=== PATIENT | male | born 1955 | race Caucasian/White ===

== ENCOUNTER 2016-12-09 16:43 | Inpatient (IN) | payer BC ==
[~2016-12-09] VITALS: Ht 167.6 cm; Wt 84.5 kg
[~2016-12-09 16:43] MED LIST: IOHEXOL 350 MG/ML 10 ML VIAL (for RAD DIAG) IV ONE
[2016-12-09 19:30] VITALS: BP 140/82; PULSE 71; RESP 16; TEMP 98.2; O2SAT 96
[2016-12-09 20:00] VITALS: PULSE 64
[2016-12-09] MEDS ORDERED: ACETAMINOPHEN 500 MG CPLT PO PRN (20:15)
[2016-12-09] MEDS ORDERED: SODIUM CHLORIDE 0.9% FLUSH 10 ML FLUSH IV FLUSH PRN (20:15)
[2016-12-09 21:00] VITALS: BP 123/82; PULSE 60
[2016-12-09] MEDS: SODIUM CHLORIDE 0.9% FLUSH 10 ML FLUSH IV FLUSH SCH (21:10)
[2016-12-09] MEDS: HEPARIN SODIUM - SQ 10,000 UNITS/ML VIAL SQ SCH (21:10)
[2016-12-09] MEDS ORDERED: MORPHINE SULFATE 4 MG/ML INJ IV PUSH ONE (21:15)
[2016-12-09 22:00] VITALS: PULSE 66
[2016-12-09] MEDS ORDERED: LISI10TA3 PO (22:31)
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
[2016-12-09 23:00] VITALS: PULSE 76
[2016-12-10] VITALS (27 sets, daily range): BP systolic 102–134; BP diastolic 60–79; PULSE 58–86; RESP 16–18; TEMP 97.4–98.6; O2SAT 96–98
[2016-12-10] MEDS: NITROGLYCERIN 2% OINT 1 GM PACKET TOPICAL SCH ×5 (00:28→23:38)
[2016-12-10 03:08] LABS: AUTOMATED NEUTROPHIL # 3.7 TH/MM3 (1.8-7.7); BASOPHIL # 0.1 TH/MM3 (0-0.2); BASOPHIL % 0.7 % (0.0-2.0); EOSINOPHIL # 0.3 TH/MM3 (0-0.4); EOSINOPHIL % 4.3 % (0.0-4.0); HEMATOCRIT 38.8 % (39.0-51.0); HEMO FLAGS DIFF FINAL; LYMPHOCYTE # 2.9 TH/MM3 (1.0-4.8); MEAN CELL VOLUME 84.4 FL (80.0-100.0); MEAN CORPUSCULAR HEMOGLOBIN 28.2 PG (27.0-34.0); MEAN CORPUSCULAR HGB CONC 33.4 % (32.0-36.0); MONO % 9.7 % (0.0-8.0); NEUT % 48.3 % (16.0-70.0); PLATELET COUNT 181 TH/MM3 (150-450); RED BLOOD COUNT 4.59 MIL/MM3 (4.50-5.90); RED CELL DISTRIBUTION WIDTH 15.1 % (11.6-17.2); WHITE BLOOD COUNT 7.7 TH/MM3 (4.0-11.0)
[2016-12-10 04:02] LABS: BICARBONATE 25.9 MEQ/L (21.0-32.0)
[2016-12-10 04:05] LABS: HDL CHOLESTEROL 30.6 MG/DL (40.0-60.0)
[2016-12-10] MEDS: HEPARIN SODIUM - SQ 10,000 UNITS/ML VIAL SQ SCH ×3 (05:26→21:25)
[2016-12-10] MEDS: LISINOPRIL 10 MG TAB PO SCH (09:00)
[2016-12-10] MEDS: SODIUM CHLORIDE 0.9% FLUSH 10 ML FLUSH IV FLUSH SCH ×2 (09:01→23:38)
[2016-12-10] MEDS: MORPHINE SULFATE 4 MG/ML INJ IV PUSH PRN ×3 (11:28→23:38)
--- NOTE | 2016-12-10 13:13 | EKG ---
Date Performed: 12/10/2016 Time Performed: 02:14:50 PTAGE: 61 years EKG: Sinus rhythm Ant/septal and lateral ST-T changes may be due to myocardial ischemia Abnormal ECG PREVIOUS TRACING : 12/09/2016 21.13 Compared to prior tracing no significant change DOCTOR: Shady Lott Interpretating Date/Time 12/10/2016 13:10:49
--- NOTE | 2016-12-10 13:17 | EKG ---
Date Performed: 12/09/2016 Time Performed: 21:13:38 PTAGE: 61 years EKG: Sinus rhythm Ant/septal and lateral ST-T changes may be due to myocardial ischemia Abnormal ECG NO PREVIOUS TRACING DOCTOR: Shady Lott Interpretating Date/Time 12/10/2016 13:13:18
--- NOTE | 2016-12-10 14:12 | HHI.PR ---
Subjective Remarks Follow-up non-ST elevation NC 12/10/16-patient seen and examined, patient continued to have substernal chest pain without any diaphoresis. Denies any headaches. by the bedside Objective Vitals Vital Signs Date Time Temp Pulse Resp B/P Pulse Ox O2 Delivery O2 Flow Rate FiO2 12/10/16 13:00 81 12/10/16 12:00 82 12/10/16 11:26 98.3 86 17 125/77 97 12/10/16 11:00 63 12/10/16 10:14 69 12/10/16 09:00 71 12/10/16 08:00 79 12/10/16 07:30 97.4 77 18 110/74 96 12/10/16 07:00 75 12/10/16 06:00 77 12/10/16 05:00 76 12/10/16 04:00 58 12/10/16 03:00 98.2 68 16 116/67 97 12/10/16 03:00 68 12/10/16 02:00 73 12/10/16 01:00 78 12/10/16 00:00 64 12/10/16 00:00 98.1 82 16 104/62 98 12/09/16 23:00 76 12/09/16 22:00 66 12/09/16 21:00 123/82 12/09/16 21:00 60 12/09/16 20:00 64 12/09/16 19:30 98.2 71 16 140/82 96 I/O 12/09/16 12/09/16 12/09/16 12/10/16 12/10/16 12/10/16 07:00 15:00 23:00 07:00 15:00 23:00 Intake Total 480 ml Output Total 500 ml Balance -20 ml Intake Oral 480 ml Output Urine Total 500 ml # Bowel Movements 0 Result Diagram: 12/10/162 12/10/16251 Objective Remarks GENERAL: NAD SKIN: Warm and dry. HEAD: Normocephalic. EYES: No scleral icterus. No injection or drainage. NECK: Supple, trachea midline. No JVD or lymphadenopathy. CARDIOVASCULAR: Regular rate and rhythm without murmurs, gallops, or rubs. RESPIRATORY: Breath sounds equal bilaterally. No accessory muscle use. GASTROINTESTINAL: Abdomen soft, non-tender, nondistended. MUSCULOSKELETAL: No cyanosis, or edema. BACK: Nontender without obvious deformity. No CVA tenderness. A/P Problem List: (1) NSTEMI (non-ST elevated myocardial infarction) ICD Code: I21.4 Status: Acute (2) Hypertension ICD Code: I10 Status: Chronic Assessment and Plan 61-year-old man with NSTEMI - Appreciate input from cardiology pending left heart catheterization 12/11/16 -Continue with Nitroglycerin ointment 2% /calcium channel roxy/Statin/ASA/ CORRINE inhibitor /heparin - Morphine 2 mg IV q3h PRN pain level 4 - 10 - 2-D echo pending Hypertension, controlled - Continue home lisinopril and Norvasc Soft left carotid bruit - Carotid ultrasound pending Hyperlipidemia -Start Lipitor 20mg at bedtime DVT prophylaxis - Heparin 5000 units subcutaneous every 8 hours Change admission to inpatient Rodo Bell MD Dec 10, 2016 14:12
[2016-12-10] MEDS ORDERED: TEMAZEPAM 15 MG CAP PO PRN (14:15)
[2016-12-10] MEDS ORDERED: PILL SPLITTER OTHER PRN (14:15)
[2016-12-10] MEDS ORDERED: ONDANSETRON HCL 4 MG/2 ML VIAL IV PRN (14:15)
[2016-12-10] MEDS ORDERED: ALUMINUM/MAGNESIUM/SIMETH 30 ML CUP PO PRN (14:15)
[2016-12-10] MEDS: ASPIRIN 81 MG CHEW TAB CHEW SCH (14:53)
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
--- NOTE | 2016-12-10 17:27 | RADRPT ---
EXAM DATE/TIME: 12/10/2016 16:37 [place] COMPARISON: None. INDICATIONS : Left bruit. MEDICAL HISTORY : Hypertension. Myocardial infarction. SURGICAL HISTORY : Lump removed left shoulder. Right ankle surgery. Exploratory laparotomy. ENCOUNTER: Initial ACUITY: 2 days PAIN SCORE: 0/10 LOCATION: Bilateral neck PEAK SYSTOLIC VELOCITIES (cm/sec): ICA/CCA RATIO: Right: 1.5 Left: 1.5 ICA: Right: 272 Left: 276 CCA: Right: 184 Left: 181 ECA: Right: 172 Left: 108 VERTEBRAL: Right: 105 antegrade Left: 55 antegrade Elevated flow velocities and ICA/CCA ratios have been found to correlate with increased degrees of vessel stenosis, calculated as percentage of diameter relative to a normal segment of distal ICA/CCA FINDINGS: There is moderate plaque in the carotid arteries bilaterally. No hemodynamically significant stenosis . There are elevated velocities in the common carotid and internal carotid arteries bilaterally. CONCLUSION: Increased systolic velocities in the carotid arteries bilaterally but without sonographic evidence fo r hemodynamically significant stenosis. Mild to moderate visible plaque formation. Florencio Suresh MD on December 10, 2016 at 17:19 Board Certified Radiologist. This report was verified electronically.
[2016-12-10] MEDS: ATORVASTATIN 20 MG TAB PO SCH (21:26)
[2016-12-11] VITALS (29 sets, daily range): BP systolic 107–146; BP diastolic 56–76; PULSE 61–82; RESP 16–20; TEMP 97.5–98.9; O2SAT 95–98
[2016-12-11] MEDS: NITROGLYCERIN 2% OINT 1 GM PACKET TOPICAL SCH ×4 (05:22→22:33)
[2016-12-11] MEDS: HEPARIN SODIUM - SQ 10,000 UNITS/ML VIAL SQ SCH (05:22)
[2016-12-11 06:47] LABS: BASOPHIL % 0.3 % (0.0-2.0); EOSINOPHIL # 0.3 TH/MM3 (0-0.4); EOSINOPHIL % 4.1 % (0.0-4.0); HEMATOCRIT 38.3 % (39.0-51.0); HEMO FLAGS DIFF FINAL; LYMPH % 34.6 % (9.0-44.0); LYMPHOCYTE # 2.7 TH/MM3 (1.0-4.8); MEAN CELL VOLUME 83.9 FL (80.0-100.0); MEAN CORPUSCULAR HEMOGLOBIN 28.6 PG (27.0-34.0); MONO % 9.6 % (0.0-8.0); NEUT % 51.4 % (16.0-70.0); PLATELET COUNT 189 TH/MM3 (150-450); RED BLOOD COUNT 4.56 MIL/MM3 (4.50-5.90); RED CELL DISTRIBUTION WIDTH 14.8 % (11.6-17.2); WHITE BLOOD COUNT 7.7 TH/MM3 (4.0-11.0)
[2016-12-11 07:16] LABS: BICARBONATE 25.6 MEQ/L (21.0-32.0); POTASSIUM 4.1 MEQ/L (3.5-5.1)
[2016-12-11] MEDS: ASPIRIN 81 MG CHEW TAB CHEW SCH (07:51)
[2016-12-11] MEDS: SODIUM CHLORIDE 0.9% FLUSH 10 ML FLUSH IV FLUSH SCH ×2 (07:51→22:34)
[2016-12-11] MEDS: LISINOPRIL 10 MG TAB PO SCH (07:52)
[2016-12-11] MEDS: amLODIPine BESYLATE 5 MG TAB PO SCH (07:52)
[2016-12-11] MEDS: MORPHINE SULFATE 4 MG/ML INJ IV PUSH PRN ×3 (07:53→22:39)
[2016-12-11] MEDS ORDERED: HEPARIN-NS/PF INJ 500 ML ONE (12:09)
[2016-12-11] MEDS ORDERED: MIDAZOLAM HCL 2 MG/2 ML VIAL ONE (12:10)
[2016-12-11] MEDS ORDERED: VERAPAMIL HCL 5 MG/2 ML VIAL ONE (12:10)
[2016-12-11] MEDS ORDERED: HEPARIN SODIUM - IV 10,000 UNITS/10 ML VIAL ONE (12:11)
[2016-12-11] MEDS ORDERED: NITROGLYCERIN INJ 5 ML ONE (12:11)
[2016-12-11] MEDS ORDERED: IOHEXOL 350 MG/ML 100 ML BTL (for Cath Lab) OTHER ONE (13:00)
--- NOTE | 2016-12-11 13:13 | CATHPROC ---
[employer] HIS Report Study Information Study Number Admission Scheduled Start Study Start [id number] Dec 09 2016 7:15PM 12/10/2016 Dec 11 2016 12:05PM Study Type [place] Service Left/Possible PCI Cardiac Catheterization Admit Source Facility Department Emergency department [facility] - Crisis Clinician Physician and Clinical Staff Initial Sekou Beard Electroencephalogram Technologist Toni Sequeira,CRISTINO Other Bertin Hernandez RCIS(BS) Recorder Lori Alvarez RCIS TECH2 Scrub Darryl LathamRT(R) Procedures Performed Procedure Location (Site) Vessel Name Coronary Angiograms LCA Left Coronary Coronary Angiograms RCA Right Coronary Equipment Time Heating Element Repairer Description Size Mfg Part Number Used/Scraped TRANSDUCER, TRUWAVE [id number] 12:08 BAIN CAICEDO * Used W/STOCKCOCK *[id number] *[id number] *[id number] 12:08 [employer] PACK, CCL CUSTOM * Used *[id number] 12:08 [employer] SUPPORT, ARTERIAL ADULT [id number] Used BAND, RADIAL COMPRESSION TR [id number] 12:56 [employer] MEDICAL 29CM Used LARGE 29 *[id number] 12:08 [employer] WIRE, EXCHANGE 260CM 3MMJ 260CM Used *[id number] 12:08 NAMIC MANIFOLD, 4 PORT * Used *[id number] 12:08 [employer] OMNIPAQUE, 350 MG, 150ML 150ML [id number] Used [id number] 12:08 [employer] BLANKET,WARM AIR CCL * Used *[id number] SHEATH, FR6 TRANSRADIAL 12:08 [employer] FR 6 [id number] Used SLENDER 10CM History: Current Medications Medication Dosage/Unit Route Frequency Last Date/Time Taken LISINOPRIL History: Allergies Allergy Reaction No Known Allergies History: Risk Factors Family History of Hypertension Dyslipidemia Previous TX Previous Heart Failure Premature CAD Yes No No No No Prior Valve Prior PCI Prior CABG Surgery No No No Cerebrovascular Peripheral Artery Chronic Lung On Dialysis Diabetes Disease Disease Disease No No No No No History: Symptoms/Diagnosis Selection Items Chest pain History: Stress Tests Stress or Imaging Studies Performed No History: Other Current Smoker Method Quit Packs a Day Years Used Pack Years No Cigarettes 8 Years Ago 2 30 60 Labs Hgb (g/dl) Hct (%) WBC (l/cumm) Platelets (thousands) 11.60-17.00 35.00-51.00 4.00-11.00 150.00-450.00 13.0 38.3 7.7 189 Glucose (mg/dl) BUN (mg/dl) Creatinine (mg/dl) BUN:Creatinine (1:x) 74.00-106.00 7.00-18.00 0.50-1.30 10.00-20.00 88 19 1.1 17.3 Na (meq/l) K (meq/l) Cl (meq/l) CO2 (mmol/L) Ca (mg/dl) 136.00-145.00 3.50-5.10 98.00-107.00 21.00-32.00 8.50-10.10 137 4.1 103 25.6 8.4 Troponin I (ng/ml) CPK (u/l) CPK-MB (ng/ML) 0.02-0.05 26.00-308.00 0.50-3.60 0.03 175 Not Drawn Medication Medication Total Dose (Bolus/Oral) Medication Total Dosage/Unit 1% XYLOCAINE 20 mL FENTANYL 25 mcg RADIAL COCKTAIL 5 mL (Bolus) VERSED 0.5 mg Medications (Bolus/Oral) Medication Time Given Dosage/Unit Administered By Reason VERSED 12/11/2016 12:35:21 PM 0.5 mg Toni Sequeira 0.5 mg VERSED given in lab by Toni Sequeira, CRISTINO in Right Antecubital via Peripheral IV. 1% XYLOCAINE 12/11/2016 12:36:29 PM 20 mL Sekou Maciel 20 mL 1% XYLOCAINE given in lab by Sekou Maciel in Right Groin via Subcutaneous. Ntg 200mcg Verapamil 2.5mg Heparin RADIAL COCKTAIL 12/11/2016 12:45:59 PM 5 mL (Bolus) Sekou Maciel 3000U 5 mL (Bolus) RADIAL COCKTAIL given in lab by Sekou Maciel in Right Radial via Radial. Using [Lizzy ution Name]. Reason: Ntg 200mcg Verapamil 2.5mg Heparin 3200U. FENTANYL 12/11/2016 1:09:07 PM 25 mcg Toni Sequeira 25 mcg FENTANYL given in lab by Toni Sequeira, RN in Right Antecubital via Peripheral IV. Medication (Drip) Medication Time Given Dosage/Unit Concentration/Unit Diluent (ml) Hanyio n IV Solutions 12/11/2016 12:06:16 PM 0 mL (IV) 500 NaCl .9 Patient arrived on IV Solutions in Right Antecubital via Peripheral IV. Pump/Drip Flow = 20 ml/hr usi ng NaCl .9. Initial Case Assessment Cardiovascular HR Rhythm NIBP Chest Pain 77 sr 135/86 0 Circulatory - Right Pulses Dorsalis Pedis Femoral Radial 3 3 3 Scale (0,1,2,3,4,d) Circulatory - Left Pulses Dorsalis Pedis Femoral Radial 3 3 Scale (0,1,2,3,4,d) Neurological State Oriented to time-place- Alert Moves all extremities person Respiration - General Respiration Rate SpO2 (%) (B/min) 16 97 Chronological Log Time Study Chronological Log 12:05:42 Patient arrived via Bed. 12:05:44 Patient Name, D.O.B, / Armband Verified By R.N. 12:05:44 Consent signed by the physician and the patient and verified by the Crisis Clinician staff. 12:05:45 Pre-op and post- op instructions given; patient acknowledges understanding of instructions. 12:05:46 Verbal Stimulation=2 Physical Stimulation=2 Airway=2 Respiration=2 TOTAL=8. (0=absent, 1=li mited, 2=present) 12:05:48 Presedation assessment performed by Crisis Clinician RN. 12:05:50 Allens test performed on the right radial and ulnar artery. 12:05:53 Patient has been NPO for More than 6Hrs. 12:05:54 Skin Breakdown-none 12:05:55 David Prominences Protected 12:05:58 A # 20 IV was noted in the Antecubital (right). Grade = patent 12:06:16 Patient arrived on IV Solutions in Right Antecubital via Peripheral IV. Pump/Drip Flow = 20 ml/hr using NaCl .9. 12:06:38 History and physical on the chart or being dictated. Vitals capture started with the following parameters, Patient=Adult, Interval=5 min, Initial Pr wexlap=942 mmHg, 12:07:13 Deflation Rate=5 mmHg 12:08:10 HR=77 bpm, GPDH=172/86 mmhg, SpO2=96.0 %, Resp=20 B/min, Pain=0, Evelyn=10, Tellez=2 Assessment: Initial Case, HR=77 BPM, Rhythm=sr, ZIDB=681/86 mmhg, Chest Pain=0 Right Pulses: Jules Ped=3, Femoral=3, Radial=3 12:11:03 Left Pulses: Jules Ped=3, Femoral=3 Neurological: State=Alert, Ox3, OGMEZ Respiration: Resp=16 B/min, SpO2=97 % 12:12:47 HR=80 bpm, MZQQ=468/84 mmhg, SpO2=95.0 %, Resp=14 B/min, Pain=0, Evelyn=10, Tellez=2 12:15:39 Reference ECG taken 12:17:50 HR=76 bpm, VTOP=410/79 mmhg, SpO2=95.0 %, Resp=19 B/min, Pain=0, Tellez=2 12:17:50 Right wrist and right groin prepped with 2% chlorhexidine, and draped after a 3 min. waitin g time. 12:21:26 Pressure channel 1 zeroed. 12:22:47 HR=76 bpm, UXOV=772/75 mmhg, SpO2=95.0 %, Resp=17 B/min, Pain=0, Tellez=2 12:27:09 MD paged 12:27:48 HR=76 bpm, MSSC=376/70 mmhg, SpO2=95.0 %, Resp=12 B/min, Pain=0, Tellez=2 12:28:02 MD responded 12:31:25 MD arrived. 12:32:47 HR=71 bpm, YXTC=686/80 mmhg, SpO2=95.0 %, Resp=14 B/min, Pain=0, Tellez=2 12:35:21 0.5 mg VERSED given in lab by Toni Sequeira, RN in Right Antecubital via Peripheral IV. Time Out. Correct patient, correct procedure,correct physician,power injector not loaded with c ontrast with surgical 12:35:45 team present. Time Out Concurred by MD and individual staff in procedure 12:36:28 Case Start 12:36:29 20 mL 1% XYLOCAINE given in lab by Sekou Maciel in Right Groin via Subcutaneous. 12:37:50 HR=75 bpm, EMCD=803/70 mmhg, SpO2=94.0 %, Resp=17 B/min, Pain=0, Tellez=2 12:39:08 Access site was Radial Artery. right A SHEATH, FR6 TRANSRADIAL SLENDER 10CM FR 6 was advanced into the Fem Art (right) using the Per cutaneous 12:39:22 technique. A JR 4.0 INFINITI CATHETER FR 5 was advanced over a wire. OMNIPAQUE, 350 MG, 150ML 150ML was us ed for 12:39:49 injections. Recorded Pressure: LV, HR=73, Condition=Condition 1 12:41:56 (Left Ventricle) LV 106/6/11 Recorded Pressure: LV, Ao, HR=76, Condition=Condition 1 12:42:10 (Left Ventricle) LV 114/7/14, (Aorta) Ao 107/60/80 Recorded Pressure: LV, Ao, HR=75, Condition=Condition 1 12:42:12 (Left Ventricle) LV 116/5/10, (Aorta) Ao 109/59/80 Recorded Pressure: LV, Ao, HR=71, Condition=Condition 1 12:42:36 (Left Ventricle) LV 105/65/65, (Aorta) Ao 114/69/88 12:42:49 HR=73 bpm, DOYM=191/63 mmhg, SpO2=94.0 %, Resp=17 B/min 5 mL (Bolus) RADIAL COCKTAIL given in lab by Sekou Maciel in Right Radial via Radial. Holli murphy [Solution Name]. 12:45:59 Reason: Ntg 200mcg Verapamil 2.5mg Heparin 3200U. Unable to cannulate RCA. After removing the current catheter a JL 4.0 INFINITI CATHETER FR 5 w as advanced over a 12:46:46 WIRE, EXCHANGE 260CM 3MMJ 260CM. 12:47:50 HR=71 bpm, NIBP=97/50 mmhg, SpO2=94.0 %, Resp=15 B/min 12:48:34 The LCA was injected and visualized at various angles. OMNIPAQUE, 350 MG, 150ML 150ML use d. 12:50:44 The RCA was injected and visualized at various angles. OMNIPAQUE, 350 MG, 150ML 150ML use d. 12:52:47 HR=78 bpm, EQCU=827/53 mmhg, SpO2=95 %, Resp=17 B/min 12:54:02 Catheter was removed 12:57:48 HR=79 bpm, PZLO=374/70 mmhg, SpO2=95.0 %, Resp=15 B/min Radial Compression Device Used. 13 mLs of air placed in BAND, RADIAL COMPRESSION TR LARGE 29 2 9CM. Affected 12:59:00 hand 95 % O2 saturation. 13:00:01 Case End 13:02:49 HR=74 bpm, CSPI=222/68 mmhg, SpO2=94.0 %, Resp=19 B/min 13:07:24 Patient moved to stretcher 13:07:29 Patient transported to [facility]. 13:09:07 25 mcg FENTANYL given in lab by Toni Sequeira, RN in Right Antecubital via Peripheral IV. End Study - Contrast Media Used In Study Contrast Total Opened (mL) Total Used (mL) Total Wasted (mL) Omnipaque 30 30 0 End Study - Maximum Contrast Load Max Contrast Load (mL) 363.6 End Study - Radiation Exposure Fluoro Time (minutes) 6.0 End Study - Sheaths Sheaths Pulled By Sheath Hold Time (min) Sekou Maciel End Study - Patient Disposition Complications Transferred To Telemetry Bed
[2016-12-11] MEDS ORDERED: MISC INFORMATION XX ONE (13:15)
[2016-12-11] MEDS ORDERED: CEFAZOLIN INJ 500 MG in SODIUM CHLORIDE 0.9% IRR BTL 500 ML IRRIGATION SCH (15:00)
[2016-12-11] MEDS ORDERED: ceFAZolin 2 GM PREMIX 50 ML IV SCH (15:00)
[2016-12-11] MEDS ORDERED: PAPAVERINE INJ 60 MG, NITROGLYCERIN INJ 100 MCG, DILTIAZEM INJ 100 MG in SODIUM CHLORID... IRRIGATION SCH (15:00)
[2016-12-11] MEDS ORDERED: INSULIN REGULAR (IV INFUSION) 100 UNITS in SODIUM CHLORIDE 0.9% INJ 100 ML IV SCH (15:00)
[2016-12-11] MEDS ORDERED: CHLORHEXIDINE GLUCONATE 4% SOLN 120 ML BTL TOPICAL SCH (15:00)
[2016-12-11] MEDS ORDERED: METOPROLOL TARTRATE 25 MG TAB PO SCH (15:00)
[2016-12-11] MEDS ORDERED: SODIUM CHLORIDE 0.9% FLUSH 10 ML FLUSH IV FLUSH PRN (15:00)
--- NOTE | 2016-12-11 15:05 | HHI.PR ---
Subjective Remarks Follow-up non-ST elevation AR 12/10/16-patient seen and examined, patient continued to have substernal chest pain without any diaphoresis. Denies any headaches. by the bedside 12/11/16-patient seen and examined post heart catheterization and denies any chest pain or shortness of breath. Case was discussed with cardiology. Objective Vitals Vital Signs Date Time Temp Pulse Resp B/P Pulse Ox O2 Delivery O2 Flow Rate FiO2 12/11/16 13:30 76 12/11/16 13:15 79 131/73 96 12/11/16 12:00 80 12/11/16 12:00 78 12/11/16 11:27 98.0 77 20 146/76 98 12/11/16 11:00 76 12/11/16 10:00 77 12/11/16 09:00 77 12/11/16 08:00 68 12/11/16 07:58 98.5 68 18 124/68 97 12/11/16 07:58 20 12/11/16 07:00 77 12/11/16 06:00 73 12/11/16 05:00 61 12/11/16 04:00 64 12/11/16 03:00 69 12/11/16 03:00 97.5 74 16 107/67 95 12/11/16 02:00 63 12/11/16 01:00 63 12/11/16 00:00 64 12/10/16 23:00 66 12/10/16 23:00 97.8 74 16 123/69 96 12/10/16 22:00 64 12/10/16 21:00 72 12/10/16 20:00 98.6 72 16 102/60 98 12/10/16 20:00 68 12/10/16 19:00 74 12/10/16 18:00 76 12/10/16 17:00 75 12/10/16 16:00 83 12/10/16 15:07 97.8 71 18 134/79 97 I/O 12/10/16 12/10/16 12/10/16 12/11/16 12/11/16 12/11/16 07:00 15:00 23:00 07:00 15:00 23:00 Intake Total 480 ml 240 ml 480 ml Output Total 500 ml 300 ml 925 ml Balance -20 ml -60 ml -445 ml Intake Oral 480 ml 240 ml 480 ml Output Urine Total 500 ml 300 ml 925 ml # Bowel Movements 0 0 Result Diagram: 12/11/16 0445 12/11/16 0445 Imaging Last Impressions Carotid Artery Ultrasound 12/10/16 0000 Signed Impressions: Service Date/Time: Saturday, December 10, 2016 16:37 - CONCLUSION: Increased systolic velocities in the carotid arteries bilaterally but without sonographic evidence for hemodynamically significant stenosis. Mild to moderate visible plaque formation. Florencio Suresh MD Objective Remarks GENERAL: NAD SKIN: Warm and dry. HEAD: Normocephalic. EYES: No scleral icterus. No injection or drainage. NECK: Supple, trachea midline. No JVD or lymphadenopathy. CARDIOVASCULAR: Regular rate and rhythm without murmurs, gallops, or rubs. RESPIRATORY: Breath sounds equal bilaterally. No accessory muscle use. GASTROINTESTINAL: Abdomen soft, non-tender, nondistended. MUSCULOSKELETAL: No cyanosis, or edema. BACK: Nontender without obvious deformity. No CVA tenderness. A/P Problem List: (1) Multi-vessel coronary artery stenosis ICD Code: I25.10 Status: Acute (2) NSTEMI (non-ST elevated myocardial infarction) ICD Code: I21.4 Status: Acute (3) Hypertension ICD Code: I10 Status: Chronic Assessment and Plan 61-year-old man with Multi-vessel coronary artery stenosis Status post left heart catheterization and case discussed with cardiology Dr. 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
--- NOTE | 2016-12-11 16:03 | PD.CARD.PN ---
Subjective Subjective Remarks Post-cath, doing well, no chest pain Objective Medications Current Medications Medications (Trade) Dose Ordered Sig/Laquita Route Start Time Stop Time Status Last Admin (NS Flush) 2 ml BID IV FLUSH 12/09/16 21:00 12/11/16 07:51 (NS Flush) 2 ml UNSCH PRN IV FLUSH 12/09/16 20:15 (Tylenol) 500 mg Q4H PRN PO 12/09/16 20:15 (Nitroglycerin 2% Oint) 1 inch Q6HR TOPICAL 12/10/16 00:00 12/11/16 05:22 (Morphine Inj) 2 mg Q3H PRN IV PUSH 12/10/16 00:30 12/11/16 07:53 (Aspirin Chew) 81 mg DAILY CHEW 12/10/16 14:15 12/11/16 07:51 (Norvasc) 2.5 mg DAILY PO 12/11/16 09:00 12/11/16 07:52 (Pill Splitter) 1 ea UNSCH PRN OTHER 12/10/16 14:15 (Zofran Inj) 4 mg Q6H PRN IV 12/10/16 14:15 (Mag-Al Plus Susp Liq) 30 ml Q6H PRN PO 12/10/16 14:15 (Restoril) 15 mg HS PRN PO 12/10/16 14:15 (Lipitor) 20 mg HS PO 12/10/16 21:00 12/10/16 21:26 (NS Flush) 2 ml BID IV FLUSH 12/11/16 21:00 UNV (NS Flush) 2 ml UNSCH PRN IV FLUSH 12/11/16 15:00 UNV Vital Signs / I&O Vital Signs Date Time Temp Pulse Resp B/P Pulse Ox O2 Delivery O2 Flow Rate FiO2 12/11/16 15:45 98.3 80 20 109/56 96 12/11/16 15:00 82 12/11/16 14:00 74 12/11/16 13:30 76 12/11/16 13:15 79 131/73 96 12/11/16 12:00 80 12/11/16 12:00 78 12/11/16 11:27 98.0 77 20 146/76 98 12/11/16 11:00 76 12/11/16 10:00 77 12/11/16 09:00 77 12/11/16 08:00 68 12/11/16 07:58 98.5 68 18 124/68 97 12/11/16 07:58 20 12/11/16 07:00 77 12/11/16 06:00 73 12/11/16 05:00 61 12/11/16 04:00 64 12/11/16 03:00 69 12/11/16 03:00 97.5 74 16 107/67 95 12/11/16 02:00 63 12/11/16 01:00 63 12/11/16 00:00 64 12/10/16 23:00 66 12/10/16 23:00 97.8 74 16 123/69 96 12/10/16 22:00 64 12/10/16 21:00 72 12/10/16 20:00 98.6 72 16 102/60 98 12/10/16 20:00 68 12/10/16 19:00 74 12/10/16 18:00 76 12/10/16 17:00 75 12/10/16 16:00 83 I/O 12/10/16 12/10/16 12/10/16 12/11/16 12/11/16 12/11/16 07:00 15:00 23:00 07:00 15:00 23:00 Intake Total 480 ml 240 ml 480 ml Output Total 500 ml 300 ml 925 ml Balance -20 ml -60 ml -445 ml Intake Oral 480 ml 240 ml 480 ml Output Urine Total 500 ml 300 ml 925 ml # Bowel Movements 0 0 Physical Exam GENERAL: NAD, AAOx3 SKIN: Warm and dry. HEAD: Atraumatic. Normocephalic. EYES: Pupils equal and round. No scleral icterus. No injection or drainage. ENT: No nasal bleeding or discharge. Mucous membranes pink and moist. NECK: Trachea midline. No JVD. CARDIOVASCULAR: Regular rate and rhythm. RESPIRATORY: No accessory muscle use. Clear to auscultation. Breath sounds equal bilaterally. GASTROINTESTINAL: Abdomen soft, non-tender, nondistended. Hepatic and splenic margins not palpable. MUSCULOSKELETAL: Extremities without clubbing, cyanosis, or edema. No obvious deformities. NEUROLOGICAL: Awake and alert. No obvious cranial nerve deficits. Motor grossly within normal limits. Five out of 5 muscle strength in the arms and legs. Normal speech. Right radial no hematoma, neurovascularly intact PSYCHIATRIC: Appropriate mood and affect; insight and judgment normal. Laboratory Laboratory Tests Test 12/11/16 04:45 White Blood Count 7.7 TH/MM3 Red Blood Count 4.56 MIL/MM3 Hemoglobin 13.0 GM/DL Hematocrit 38.3 % Mean Corpuscular Volume 83.9 FL Mean Corpuscular Hemoglobin 28.6 PG Mean Corpuscular Hemoglobin 34.0 % Concent Red Cell Distribution Width 14.8 % Platelet Count 189 TH/MM3 Mean Platelet Volume 8.0 FL Neutrophils (%) (Auto) 51.4 % Lymphocytes (%) (Auto) 34.6 % Monocytes (%) (Auto) 9.6 % Eosinophils (%) (Auto) 4.1 % Basophils (%) (Auto) 0.3 % Neutrophils # (Auto) 4.0 TH/MM3 Lymphocytes # (Auto) 2.7 TH/MM3 Monocytes # (Auto) 0.7 TH/MM3 Eosinophils # (Auto) 0.3 TH/MM3 Basophils # (Auto) 0.0 TH/MM3 CBC Comment DIFF FINAL Differential Comment Sodium Level 137 MEQ/L Potassium Level 4.1 MEQ/L Chloride Level 103 MEQ/L Carbon Dioxide Level 25.6 MEQ/L Anion Gap 8 MEQ/L Blood Urea Nitrogen 19 MG/DL Creatinine 1.11 MG/DL Estimat Glomerular Filtration 67 ML/MIN Rate Random Glucose 88 MG/DL Calcium Level 8.4 MG/DL Assessment and Plan Problem List: (1) Chest pain (2) NSTEMI (non-ST elevated myocardial infarction) (3) Hypertension (4) Multi-vessel coronary artery stenosis Assessment and Plan 1) Post cath, doing well 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 Francis consulted for consideration of CABG, possible Friday 2) Con't ASA/Statin 3) No chest pain... if chest pain, consider restarting heparin drip 4) 2D echo pending Sekou Maciel DO Dec 11, 2016 16:03
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
--- NOTE | 2016-12-11 16:41 | ECHRPT ---
Indication: chest pain CONCLUSIONS The transthoracic study is normal by two-dimensional, color flow imaging and Doppler interrogation. Normal left ventricular size and wall thickness. The left ventricular systolic function is normal wi th an estimated ejection fraction in the range of 60-65%. Left ventricular diastolic function parameters a re normal. BP: 107 / 67 HR: 74 Rhythm: MEASUREMENTS (Male / Female) Normal Values Technical Quality:Technically difficult study 2D ECHO LV Diastolic Diameter PLAX 4.0 cm 4.2 - 5.9 / 3.9 - 5.3 cm LV Systolic Diameter PLAX 3.0 cm IVS Diastolic Thickness 1.0 cm 0.6 - 1.0 / 0.6 - 0.9 cm LVPW Diastolic Thickness 1.2 cm 0.6 - 1.0 / 0.6 - 0.9 cm LV Relative Wall Thickness 0.6 RV Internal Dim ED PLAX 2.3 cm M-MODE Aortic Root Diameter MM 2.9 cm LA Systolic Diameter MM 3.4 cm LA Ao Ratio MM 1.2 DOPPLER Mitral E Point Velocity 85.5 cm/s Mitral A Point Velocity 111.0 cm/s Mitral E to A Ratio 0.8 LV E' Lateral Velocity 8.2 cm/s Mitral E to LV E' Lateral Ratio 10.4 FINDINGS LEFT VENTRICLE Normal left ventricular size and wall thickness. The left ventricular systolic function is normal wi th an estimated ejection fraction in the range of 60-65%. Left ventricular diastolic function parameters a re normal. RIGHT VENTRICLE Normal right ventricular size and systolic function. LEFT ATRIUM The left atrial size is normal. RIGHT ATRIUM The right atrial size is normal. ATRIAL SEPTUM Normal atrial septal thickness without atrial level shunting by limited color doppler interrogation. AORTA The aortic root and proximal ascending aorta are normal in size on limited imaging. MITRAL VALVE Structurally normal mitral valve. No mitral valve stenosis or regurgitation. AORTIC VALVE Trileaflet aortic valve. No aortic valve stenosis or regurgitation. TRICUSPID VALVE Structurally normal tricuspid valve. No tricuspid valve stenosis or regurgitation. PULMONARY VALVE The pulmonary valve is not well visualized. VESSELS The inferior vena cava is normal in size. PERICARDIUM No pericardial effusion. Av Larson MD, FACC (Electronically Signed) Final Date:11 December 2016 16:40
[2016-12-11 18:33] LABS: BLOOD, URINE NEG (NEG); GLUCOSE,URINE NEG (NEG); KETONE, URINE NEG (NEG); NITRITE,URINE NEG (NEG); PH, URINE 6.5 (5.0-8.5); URINE COLOR YELLOW (YELLW/STRAW)
[2016-12-11 18:34] LABS: COMMENT (UR) CULT NOT INDICATED; CULTURE IF INDICATED CULT NOT INDICATED
[2016-12-11] MEDS: ATORVASTATIN 20 MG TAB PO SCH (22:33)
[2016-12-12] VITALS (25 sets, daily range): BP systolic 124–155; BP diastolic 71–88; PULSE 59–84; RESP 16–20; TEMP 97.8–98.5; O2SAT 94–98
[2016-12-12] MEDS: MORPHINE SULFATE 4 MG/ML INJ IV PUSH PRN ×3 (02:44→23:50)
--- NOTE | 2016-12-12 05:33 | MA ---
cc: SEKOU SALINAS DO DATE OF PROCEDURE December 11, 2016 PROCEDURE 1. Left heart catheterization. 2. Coronary angiogram. 3. Moderate sedation 25 minutes. PREPROCEDURE DIAGNOSIS Elevated troponin, chest pain concerning for coronary insufficiency, abnormal EKG. 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 MEDICATIONS 1. Versed 0.5 mg. 2. Fentanyl 25 mcg. 3. Heparin 3200 units. 4. Verapamil 2.5 mg. 5. Nitro 200 mcg. CONTRAST USED 30 cc. FLUOROSCOPY 6 minutes MODERATE SEDATION 25 minutes ESTIMATED BLOOD LOSS 10 cc PROCEDURAL SUMMARY Emigdio Ely is a pleasant 61-year-old male who presented to [facility] due to chest pain. He was found to have a mildly elevated troponin but had significant EKG changes. Because of this it was felt that we should forego pharmacologic nuclear stress testing and he should undergo catheterization. The risks, benefits and alternatives were explained to him and he consented as such. He was brought to the lab and prepped in the usual sterile fashion. Right radial artery was accessed using a modified Seldinger technique and placement of a 5/6-[place] Slender sheath. This was easily aspirated and flushed. A JR-4 was advanced over a J-wire and into the left ventricle for measurement of left ventricular end-diastolic pressure. This was pulled back across the aortic valve showing no significant gradient of aortic stenosis. The JR-4 was unable to find the ostium of the right coronary and so this was exchanged for a JL-3.5 catheter. The JL-3.5 was used for selective angiography of the left coronary system and subsequently the RCA was found to have a shared ostium with the left and so selective angiography of the right coronary artery was done at this time. The JL-3.5 was removed over a J-wire. A radial band was placed over the arteriotomy site for hemostasis. 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 FINDINGS The left main is a normal-sized vessel with no significant disease. It bifurcates into an LAD and circumflex. The LAD was a normal-sized vessel with an 80% lesion in the proximal portion and a 70-80% lesion in the mid-portion at the takeoff of the first diagonal. LAD has one diagonal which has an ostial lesion of 80% but is somewhat a small vessel. The left circumflex is a normal sized vessel with 20% disease in the proximal portion. It gives off three obtuse marginals with the first obtuse marginal having a 90% lesion in the proximal portion. The second obtuse marginal has no significant disease. The third obtuse marginal has a 90% lesion but is somewhat of a small vessel. The RCA is an anomalous vessel with a shared ostium of the left main. It has 30% diffuse disease in the midportion, has a distal lesion of 70% before the bifurcation into the PDA and posterior lateral branch. Left ventricular end-diastolic pressure of 10. IMPRESSIONS 1. Chest pain concerning for coronary insufficiency. 2. Mildly elevated troponin. 3. Abnormal EKG showing possible ischemia in the anterior lateral wave forms. 4. Multivessel coronary artery disease as above with an anomalous takeoff of the RCA from the left main trunk. RECOMMENDATIONS 1. Mr. Ely appears to have presented with unstable angina and during his cardiac catheterization was found to have multivessel disease. 2. CT surgery will be consulted for consideration of coronary artery bypass grafting. I discussed the case with Dr. Francis. 3. A 2-D echo will be obtained to look at his overall left ventricular function, cardiac structure and possible valvopathies. 4. The patient has an anomalous takeoff of his RCA from the left main trunk. Review of the CTA done for dissection in the emergency room shows a route of the RCA which appears to cross between the aorta and pulmonary artery. Thank you for allowing me to see Emigdio Ely. If there are any questions, please do not hesitate to call. Sekou Salinas DO VGP/SSB /10:55 PM /5:22 AM
[2016-12-12 06:08] LABS: BASOPHIL % 0.4 % (0.0-2.0); EOSINOPHIL # 0.2 TH/MM3 (0-0.4); EOSINOPHIL % 2.7 % (0.0-4.0); HEMATOCRIT 40.4 % (39.0-51.0); HEMO FLAGS DIFF FINAL; LYMPH % 24.9 % (9.0-44.0); MEAN CELL VOLUME 84.5 FL (80.0-100.0); MEAN CORPUSCULAR HEMOGLOBIN 27.8 PG (27.0-34.0); MEAN CORPUSCULAR HGB CONC 32.9 % (32.0-36.0); MONO % 9.8 % (0.0-8.0); NEUT % 62.2 % (16.0-70.0); PLATELET COUNT 176 TH/MM3 (150-450); RED BLOOD COUNT 4.78 MIL/MM3 (4.50-5.90); RED CELL DISTRIBUTION WIDTH 14.7 % (11.6-17.2)
[2016-12-12] MEDS: NITROGLYCERIN 2% OINT 1 GM PACKET TOPICAL SCH ×4 (06:22→22:35)
[2016-12-12 06:23] LABS: ANION GAP 4 MEQ/L (5-15); BLOOD UREA NITROGEN 17 MG/DL (7-18); CHLORIDE 106 MEQ/L (98-107); GLOMERULAR FILTRATION RATE 70 ML/MIN (>89); POTASSIUM 4.4 MEQ/L (3.5-5.1); SODIUM (NA) 139 MEQ/L (136-145)
[2016-12-12] MEDS: amLODIPine BESYLATE 5 MG TAB PO SCH (08:15)
[2016-12-12] MEDS: ASPIRIN 81 MG CHEW TAB CHEW SCH (08:15)
[2016-12-12] MEDS: SODIUM CHLORIDE 0.9% FLUSH 10 ML FLUSH IV FLUSH SCH ×2 (08:15→21:00)
[2016-12-12] MEDS: DOCUSATE SODIUM 100 MG CAP PO SCH ×3 (08:15→17:08)
[2016-12-12 11:34] LABS: HEMOGLOBIN A1a 1.2 %; HEMOGLOBIN A1b 1.5 %; HEMOGLOBIN Ao 85.2 %; HEMOGLOBIN P3 3.8 %
--- NOTE | 2016-12-12 12:52 | PD.CARD.PN ---
Subjective Subjective Remarks No events overnight No chest pain, no shortness of breath Does have occasional CP, which last seconds, different than what he came in for Objective Medications Current Medications Medications (Trade) Dose Ordered Sig/Laquita Route Start Time Stop Time Status Last Admin (Tylenol) 500 mg Q4H PRN PO 12/09/16 20:15 (Nitroglycerin 2% Oint) 1 inch Q6HR TOPICAL 12/10/16 00:00 12/12/16 12:00 (Morphine Inj) 2 mg Q3H PRN IV PUSH 12/10/16 00:30 12/12/16 12:08 (Aspirin Chew) 81 mg DAILY CHEW 12/10/16 14:15 12/12/16 08:15 (Norvasc) 2.5 mg DAILY PO 12/11/16 09:00 12/12/16 08:15 (Pill Splitter) 1 ea UNSCH PRN OTHER 12/10/16 14:15 (Zofran Inj) 4 mg Q6H PRN IV 12/10/16 14:15 (Mag-Al Plus Susp Liq) 30 ml Q6H PRN PO 12/10/16 14:15 (Restoril) 15 mg HS PRN PO 12/10/16 14:15 (Lipitor) 20 mg HS PO 12/10/16 21:00 12/11/16 22:33 (NS Flush) 2 ml BID IV FLUSH 12/11/16 21:00 12/12/16 08:15 (NS Flush) 2 ml UNSCH PRN IV FLUSH 12/11/16 15:00 (Colace) 100 mg TID PO 12/12/16 09:00 12/12/16 12:08 Vital Signs / I&O Vital Signs Date Time Temp Pulse Resp B/P Pulse Ox O2 Delivery O2 Flow Rate FiO2 12/12/16 12:14 16 12/12/16 12:00 98.2 67 20 146/88 98 12/12/16 12:00 65 12/12/16 11:00 68 12/12/16 10:00 76 12/12/16 09:00 70 12/12/16 08:00 98.5 68 16 125/76 94 12/12/16 08:00 59 12/12/16 07:00 72 12/12/16 06:01 66 12/12/16 05:58 65 12/12/16 04:00 62 12/12/16 03:56 76 12/12/16 03:44 97.8 77 18 138/71 97 12/12/16 02:00 68 12/12/16 01:12 60 12/12/16 00:00 64 12/11/16 23:20 98.2 73 16 114/64 97 12/11/16 23:00 73 12/11/16 22:00 70 12/11/16 21:00 66 12/11/16 20:00 68 12/11/16 19:00 98.9 72 18 117/62 96 12/11/16 19:00 73 12/11/16 18:01 71 12/11/16 17:00 82 12/11/16 16:04 80 12/11/16 15:45 98.3 80 20 109/56 96 12/11/16 15:00 82 12/11/16 14:00 74 12/11/16 13:30 76 12/11/16 13:15 79 131/73 96 I/O 12/11/16 12/11/16 12/11/16 12/12/16 12/12/16 12/12/16 07:00 15:00 23:00 07:00 15:00 23:00 Intake Total 480 ml 680 ml 440 ml Output Total 925 ml 610 ml 575 ml Balance -445 ml 70 ml -135 ml Intake Oral 480 ml 480 ml 440 ml IV Total 200 ml Output Urine Total 925 ml 610 ml 575 ml Stool Total 0 ml # Bowel Movements 0 Physical Exam GENERAL: NAD, AAOx3 SKIN: Warm and dry. HEAD: Atraumatic. Normocephalic. EYES: Pupils equal and round. No scleral icterus. No injection or drainage. ENT: No nasal bleeding or discharge. Mucous membranes pink and moist. NECK: Trachea midline. No JVD. CARDIOVASCULAR: Regular rate and rhythm. RESPIRATORY: No accessory muscle use. Clear to auscultation. Breath sounds equal bilaterally. GASTROINTESTINAL: Abdomen soft, non-tender, nondistended. Hepatic and splenic margins not palpable. MUSCULOSKELETAL: Extremities without clubbing, cyanosis, or edema. No obvious deformities. NEUROLOGICAL: Awake and alert. No obvious cranial nerve deficits. Motor grossly within normal limits. Five out of 5 muscle strength in the arms and legs. Normal speech. Right radial no hematoma, neurovascularly intact PSYCHIATRIC: Appropriate mood and affect; insight and judgment normal. Laboratory Laboratory Tests Test 12/11/16 12/12/16 17:45 05:05 Urine Color YELLOW Urine Turbidity CLEAR Urine pH 6.5 Urine Specific [place] 1.035 Urine Protein NEG mg/dL Urine Glucose (UA) NEG mg/dL Urine Ketones NEG mg/dL Urine Occult Blood NEG Urine Nitrite NEG Urine Bilirubin NEG Urine Urobilinogen LESS THAN 2.0 MG/DL Urine Leukocyte Esterase NEG Urine WBC LESS THAN 1 /hpf Microscopic Urinalysis Comment CULT NOT INDICATED Nasal Screen MRSA (PCR) MRSA DETECTED White Blood Count 8.0 TH/MM3 Red Blood Count 4.78 MIL/MM3 Hemoglobin 13.3 GM/DL Hematocrit 40.4 % Mean Corpuscular Volume 84.5 FL Mean Corpuscular Hemoglobin 27.8 PG Mean Corpuscular Hemoglobin 32.9 % Concent Red Cell Distribution Width 14.7 % Platelet Count 176 TH/MM3 Mean Platelet Volume 7.8 FL Neutrophils (%) (Auto) 62.2 % Lymphocytes (%) (Auto) 24.9 % Monocytes (%) (Auto) 9.8 % Eosinophils (%) (Auto) 2.7 % Basophils (%) (Auto) 0.4 % Neutrophils # (Auto) 5.0 TH/MM3 Lymphocytes # (Auto) 2.0 TH/MM3 Monocytes # (Auto) 0.8 TH/MM3 Eosinophils # (Auto) 0.2 TH/MM3 Basophils # (Auto) 0.0 TH/MM3 CBC Comment DIFF FINAL Differential Comment Sodium Level 139 MEQ/L Potassium Level 4.4 MEQ/L Chloride Level 106 MEQ/L Carbon Dioxide Level 29.0 MEQ/L Anion Gap 4 MEQ/L Blood Urea Nitrogen 17 MG/DL Creatinine 1.08 MG/DL Estimat Glomerular Filtration 70 ML/MIN Rate Random Glucose 92 MG/DL Hemoglobin A1c 5.7 % Calcium Level 8.5 MG/DL Assessment and Plan Problem List: (1) Chest pain (2) NSTEMI (non-ST elevated myocardial infarction) (3) Hypertension (4) Multi-vessel coronary artery stenosis Assessment and Plan 1) Post cath, doing well 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 Francis consulted for consideration of CABG, possible Friday 2) Con't ASA/Statin 3) No chest pain... if chest pain, consider restarting heparin drip 4) EF 60-65%, no significant valvular disease Sekou Maciel DO Dec 12, 2016 12:52
--- NOTE | 2016-12-12 13:02 | RADRPT ---
EXAM DATE/TIME: 12/12/2016 10:19 [facility] COMPARISON: No previous studies available for comparison. INDICATIONS : Preop cardiac surgery. MEDICAL HISTORY : Hypertension. Chest pain. Cardiac disorders. Substance use. SURGICAL HISTORY : Cardiac cath. Lump removed left shoulder. Abdominal surgery. Right ankle. ENCOUNTER: Initial ACUITY: 1 day PAIN SCORE: 0/10 LOCATION: Bilateral legs. TECHNIQUE: Venous ultrasound of the left and right leg was performed from the inguinal ligament to the proximal calf. Real-time, color Doppler and spectral tracing, compression and augmentation techniques were us ed. FINDINGS: RIGHT LEG: There is normal compressibility of the deep venous system from the inguinal region to the proximal ca lf. No echogenic clot is seen in the lumen of the common femoral, femoral, popliteal, and posterior tibial veins. There is a normal response of the venous system to proximal and distal augmentation an d respiration. LEFT LEG: There is normal compressibility of the deep venous system from the inguinal region to the proximal ca lf. No echogenic clot is seen in the lumen of the common femoral, femoral, popliteal, and posterior tibial veins. There is a normal response of the venous system to proximal and distal augmentation an d respiration. CONCLUSION: No evidence of DVT. Evaristo Varner MD on December 12, 2016 at 12:59 Board Certified Radiologist. This report was verified electronically.
--- NOTE | 2016-12-12 13:33 | RADRPT ---
EXAM DATE/TIME: 12/12/2016 10:41 [facility] COMPARISON: No previous studies available for comparison. INDICATIONS : Preop cardiac surgery. MEDICAL HISTORY : Hypertension. Chest pain. Cardiac disorders. Substance use. SURGICAL HISTORY : Cardiac cath. Lump removed left shoulder. Abdominal surgery. Right ankle. ENCOUNTER: Initial ACUITY: 1 day PAIN SCORE: 0/10 LOCATION: Bilateral leg. GREATER SAPHENOUS VEIN THIGH: PROXIMAL: Right 7 mm Left 9 mm MID: Right 4 mm Left 3 mm DISTAL: Right 3 mm Left 3 mm CALF: PROXIMAL: Right 3 mm Left 2 mm MID: Right 2 mm Left 1 mm DISTAL: Right 2 mm Left Non-visualized FINDINGS: The venous system of the lower extremities are patent by color Doppler imaging. Measurements of the leg veins (in mm) are listed above. CONCLUSION: Venous mapping as above. Evaristo Varner MD on December 12, 2016 at 13:30 Board Certified Radiologist. This report was verified electronically.
--- NOTE | 2016-12-12 13:59 | HHI.PR ---
Subjective Remarks Follow-up non-ST elevation [place] 12/10/16-patient seen and examined, patient continued to have substernal chest pain without any diaphoresis. Denies any headaches. by the bedside 12/11/16-patient seen and examined post heart catheterization and denies any chest pain or shortness of breath. Case was discussed with cardiology. 12/12/16-patient seen and examined, denies any chest pain or shortness of breath. Objective Vitals Vital Signs Date Time Temp Pulse Resp B/P Pulse Ox O2 Delivery O2 Flow Rate FiO2 12/12/16 12:14 16 12/12/16 12:00 98.2 67 20 146/88 98 12/12/16 12:00 65 12/12/16 11:00 68 12/12/16 10:00 76 12/12/16 09:00 70 12/12/16 08:00 98.5 68 16 125/76 94 12/12/16 08:00 59 12/12/16 07:00 72 12/12/16 06:01 66 12/12/16 05:58 65 12/12/16 04:00 62 12/12/16 03:56 76 12/12/16 03:44 97.8 77 18 138/71 97 12/12/16 02:00 68 12/12/16 01:12 60 12/12/16 00:00 64 12/11/16 23:20 98.2 73 16 114/64 97 12/11/16 23:00 73 12/11/16 22:00 70 12/11/16 21:00 66 12/11/16 20:00 68 12/11/16 19:00 98.9 72 18 117/62 96 12/11/16 19:00 73 12/11/16 18:01 71 12/11/16 17:00 82 12/11/16 16:04 80 12/11/16 15:45 98.3 80 20 109/56 96 12/11/16 15:00 82 12/11/16 14:00 74 I/O 12/11/16 12/11/16 12/11/16 12/12/16 12/12/16 12/12/16 07:00 15:00 23:00 07:00 15:00 23:00 Intake Total 480 ml 680 ml 440 ml Output Total 925 ml 610 ml 575 ml Balance -445 ml 70 ml -135 ml Intake Oral 480 ml 480 ml 440 ml IV Total 200 ml Output Urine Total 925 ml 610 ml 575 ml Stool Total 0 ml # Bowel Movements 0 Result Diagram: 12/12/16 0505 12/12/16 0505 Imaging Last Impressions Lower Extremity Ultrasound 12/12/16 0000 Signed Impressions: Service Date/Time: December 10:41 - CONCLUSION: Venous mapping as above. Evaristo Varner MD Carotid Artery Ultrasound 12/10/16 0000 Signed Impressions: Service Date/Time: Saturday, December 10, 2016 16:37 - CONCLUSION: Increased systolic velocities in the carotid arteries bilaterally but without sonographic evidence for hemodynamically significant stenosis. Mild to moderate visible plaque formation. Florencio Suresh MD Objective Remarks GENERAL: NAD SKIN: Warm and dry. HEAD: Normocephalic. EYES: No scleral icterus. No injection or drainage. NECK: Supple, trachea midline. No JVD or lymphadenopathy. CARDIOVASCULAR: Regular rate and rhythm without murmurs, gallops, or rubs. RESPIRATORY: Breath sounds equal bilaterally. No accessory muscle use. GASTROINTESTINAL: Abdomen soft, non-tender, nondistended. MUSCULOSKELETAL: No cyanosis, or edema. BACK: Nontender without obvious deformity. No CVA tenderness. A/P Problem List: (1) Multi-vessel coronary artery stenosis ICD Code: I25.10 Status: Acute (2) NSTEMI (non-ST elevated myocardial infarction) ICD Code: I21.4 Status: Acute (3) Hypertension ICD Code: I10 Status: Chronic Assessment and Plan 61-year-old man with Multi-vessel coronary artery stenosis Status post left heart catheterization 12/11/16 Appreciate input from cardiothoracic surgery and plan for CABG X Friday Continue with statin/aspirin NSTEMI - Appreciate input from cardiology and s/p left heart catheterization 12/11/16 with finding of Multi-vessel disease with anomalous RCA off of Left Main -Continue with Nitroglycerin ointment 2% /calcium channel roxy/Statin/ASA/ CORRINE inhibitor /heparin - Morphine 2 mg IV q3h PRN pain level 4 - 10 - 2-D echo with EF 60-65% Hypertension, controlled - Continue home lisinopril and Norvasc Soft left carotid bruit - Carotid ultrasound with finding of Increased systolic velocities in the carotid arteries bilaterally but without sonographic evidence for hemodynamically significant stenosis. Hyperlipidemia -Continue Lipitor 20mg at bedtime DVT prophylaxis - Heparin 5000 units subcutaneous every 8 hours Rodo Bell MD Dec 12, 2016 13:59
--- NOTE | 2016-12-12 17:28 | PD.CAR.PN ---
CVT Progress Note Subjective/Hospital Course: 61/ male presented to the emergency room complaining of intermittent chest pain occurring over the past 3-4 weeks that increased in frequency and changed in character over the past 2 days prompting his visit to the hospital. He states that over the past 3-4 weeks, he has been experiencing central chest pain that is described as a pressure and radiates down the inner aspect of his arms bilaterally. This symptom lasts for about 5 minutes and typically has been occurring in the morning after he eats breakfast. There is associated diaphoresis but he denies any nausea or vomiting with that. He states that the pains are nonexertional and resolve spontaneously. pt underwent cardiac cath by Dr Maciel, found to have multi vessel disease, EF 60% PMH: HTN 12/12 pt denies having chest pain on room air, scheduled for surgery on Friday Objective: GENERAL: SKIN: Warm and dry. HEAD: Normocephalic. EYES: No scleral icterus. No injection or drainage. NECK: Supple, trachea midline. No JVD or lymphadenopathy. CARDIOVASCULAR: Regular rate and rhythm without murmurs, gallops, or rubs. RESPIRATORY: Breath sounds equal bilaterally. No accessory muscle use. GASTROINTESTINAL: Abdomen soft, non-tender, nondistended. MUSCULOSKELETAL: No cyanosis, or edema. BACK: Nontender without obvious deformity. No CVA tenderness. Vital Signs Date Time Temp Pulse Resp B/P Pulse Ox O2 Delivery O2 Flow Rate FiO2 12/12/16 16:00 76 12/12/16 16:00 97.8 76 20 124/80 96 12/12/16 15:00 66 12/12/16 14:00 82 12/12/16 13:00 66 12/12/16 12:14 16 12/12/16 12:00 98.2 67 20 146/88 98 12/12/16 12:00 65 12/12/16 11:00 68 12/12/16 10:00 76 12/12/16 09:00 70 12/12/16 08:00 98.5 68 16 125/76 94 12/12/16 08:00 59 12/12/16 07:00 72 12/12/16 06:01 66 12/12/16 05:58 65 12/12/16 04:00 62 12/12/16 03:56 76 12/12/16 03:44 97.8 77 18 138/71 97 12/12/16 02:00 68 12/12/16 01:12 60 12/12/16 00:00 64 12/11/16 23:20 98.2 73 16 114/64 97 12/11/16 23:00 73 12/11/16 22:00 70 12/11/16 21:00 66 12/11/16 20:00 68 12/11/16 19:00 98.9 72 18 117/62 96 12/11/16 19:00 73 12/11/16 18:01 71 Result Diagram: 12/12/16 0505 12/12/16 0505 Telemetry: NSR (1) Chest pain (2) NSTEMI (non-ST elevated myocardial infarction) Plan: statin , ASA , start low dose BB for surgery on friday (3) Hypertension (4) Multi-vessel coronary artery stenosis Catherine Miranda Dec 12, 2016 17:28
--- NOTE | 2016-12-12 17:31 | PD.CAR.PN ---
CVT Progress Note Subjective/Hospital Course: 61/ male presented to the emergency room complaining of intermittent chest pain occurring over the past 3-4 weeks that increased in frequency and changed in character over the past 2 days prompting his visit to the hospital. He states that over the past 3-4 weeks, he has been experiencing central chest pain that is described as a pressure and radiates down the inner aspect of his arms bilaterally. This symptom lasts for about 5 minutes and typically has been occurring in the morning after he eats breakfast. There is associated diaphoresis but he denies any nausea or vomiting with that. He states that the pains are nonexertional and resolve spontaneously. pt underwent cardiac cath by Dr Maciel, found to have multi vessel disease, EF 60% PMH: HTN sts data discussed with pt : RISK SCORES About the STS Risk Calculator Procedure: CAB Only Risk of Mortality: 0.724% Morbidity or Mortality: 9.131% Long Length of Stay: 2.93% Short Length of Stay: 55.24% Permanent Stroke: 0.828% Prolonged Ventilation: 6.469% DSW Infection: 0.315% Renal Failure: 1.689% Reoperation: 3.305% 12/12 pt denies having chest pain on room air, scheduled for surgery on Friday Objective: Vital Signs Date Time Temp Pulse Resp B/P Pulse Ox O2 Delivery O2 Flow Rate FiO2 12/12/16 16:00 76 12/12/16 16:00 97.8 76 20 124/80 96 12/12/16 15:00 66 12/12/16 14:00 82 12/12/16 13:00 66 12/12/16 12:14 16 12/12/16 12:00 98.2 67 20 146/88 98 12/12/16 12:00 65 12/12/16 11:00 68 12/12/16 10:00 76 12/12/16 09:00 70 12/12/16 08:00 98.5 68 16 125/76 94 12/12/16 08:00 59 12/12/16 07:00 72 12/12/16 06:01 66 12/12/16 05:58 65 12/12/16 04:00 62 12/12/16 03:56 76 12/12/16 03:44 97.8 77 18 138/71 97 12/12/16 02:00 68 12/12/16 01:12 60 12/12/16 00:00 64 12/11/16 23:20 98.2 73 16 114/64 97 12/11/16 23:00 73 12/11/16 22:00 70 12/11/16 21:00 66 12/11/16 20:00 68 12/11/16 19:00 98.9 72 18 117/62 96 12/11/16 19:00 73 12/11/16 18:01 71 Result Diagram: 12/12/16 0505 12/12/16 0505 (1) Chest pain (2) NSTEMI (non-ST elevated myocardial infarction) Plan: statin , ASA , start low dose BB for surgery on friday (3) Hypertension (4) Multi-vessel coronary artery stenosis Catherine Miranda Dec 12, 2016 17:31
[2016-12-12] MEDS: ATORVASTATIN 20 MG TAB PO SCH (22:35)
[2016-12-12] MEDS: MUPIROCIN 2% OINT 1 APPLIC/GM SYR EACH NARE SCH (22:35)
[2016-12-13] VITALS (25 sets, daily range): BP systolic 123–144; BP diastolic 71–82; PULSE 63–88; RESP 18–20; TEMP 97.6–98.9; O2SAT 96–98
[2016-12-13] MEDS: NITROGLYCERIN 2% OINT 1 GM PACKET TOPICAL SCH ×3 (06:00→17:35)
[2016-12-13] MEDS: DOCUSATE SODIUM 100 MG CAP PO SCH ×3 (08:24→17:35)
[2016-12-13] MEDS: amLODIPine BESYLATE 5 MG TAB PO SCH (08:24)
[2016-12-13] MEDS: ASPIRIN 81 MG CHEW TAB CHEW SCH (08:24)
[2016-12-13] MEDS: MUPIROCIN 2% OINT 1 APPLIC/GM SYR EACH NARE SCH ×2 (08:24→21:11)
[2016-12-13] MEDS: SODIUM CHLORIDE 0.9% FLUSH 10 ML FLUSH IV FLUSH SCH ×2 (08:24→21:12)
--- NOTE | 2016-12-13 12:29 | HHI.PR ---
Subjective Remarks Follow-up non-ST elevation [place] 12/10/16-patient seen and examined, patient continued to have substernal chest pain without any diaphoresis. Denies any headaches. by the bedside 12/11/16-patient seen and examined post heart catheterization and denies any chest pain or shortness of breath. Case was discussed with cardiology. 12/12/16-patient seen and examined, denies any chest pain or shortness of breath. 12/13/16-patient seen and examined; he was up and ambulating the hallway and denies any chest pain or shortness of breath. Only complains of constipation otherwise no other issues. Objective Vitals Vital Signs Date Time Temp Pulse Resp B/P Pulse Ox O2 Delivery O2 Flow Rate FiO2 12/13/16 12:00 97.7 82 18 129/73 97 12/13/16 12:00 77 12/13/16 11:00 80 12/13/16 10:00 82 12/13/16 09:00 86 12/13/16 08:00 97.6 76 18 144/82 96 12/13/16 08:00 75 12/13/16 07:00 86 12/13/16 06:00 79 12/13/16 05:00 73 12/13/16 04:05 73 12/13/16 04:00 98.2 63 20 135/82 98 12/13/16 03:00 77 12/13/16 02:00 86 12/13/16 01:00 88 12/13/16 00:00 98.0 66 18 140/82 96 12/13/16 00:00 68 12/12/16 23:00 68 12/12/16 22:00 70 12/12/16 21:00 69 12/12/16 20:00 98.1 82 18 155/83 96 12/12/16 20:00 68 12/12/16 19:00 82 12/12/16 18:00 84 12/12/16 17:00 68 12/12/16 16:00 76 12/12/16 16:00 97.8 76 20 124/80 96 12/12/16 15:00 66 12/12/16 14:00 82 12/12/16 13:00 66 I/O 12/12/16 12/12/16 12/12/16 12/13/16 12/13/167/17 07:00 15:00 23:00 07:00 15:00 23:00 Intake Total 440 ml 780 ml 240 ml Output Total 575 ml 1375 ml 425 ml Balance -135 ml -595 ml -185 ml Intake Oral 440 ml 780 ml 240 ml Output Urine Total 575 ml 1375 ml 425 ml # Bowel Movements 0 Result Diagram: 12/12/16 0505 12/12/16 0505 Objective Remarks GENERAL: NAD SKIN: Warm and dry. HEAD: Normocephalic. EYES: No scleral icterus. No injection or drainage. NECK: Supple, trachea midline. No JVD or lymphadenopathy. CARDIOVASCULAR: Regular rate and rhythm without murmurs, gallops, or rubs. RESPIRATORY: Breath sounds equal bilaterally. No accessory muscle use. GASTROINTESTINAL: Abdomen soft, non-tender, nondistended. MUSCULOSKELETAL: No cyanosis, or edema. BACK: Nontender without obvious deformity. No CVA tenderness. A/P Problem List: (1) Multi-vessel coronary artery stenosis ICD Code: I25.10 Status: Acute (2) NSTEMI (non-ST elevated myocardial infarction) ICD Code: I21.4 Status: Acute (3) Hypertension ICD Code: I10 Status: Chronic Assessment and Plan 61-year-old man with Multi-vessel coronary artery stenosis Status post left heart catheterization 12/11/16 Appreciate input from cardiothoracic surgery and plan for CABG next Friday Continue with statin/aspirin NSTEMI - Appreciate input from cardiology and s/p left heart catheterization 12/11/16 with finding of Multi-vessel disease with anomalous RCA off of Left Main -Continue with Nitroglycerin ointment 2% /calcium channel roxy/Statin/ASA/ CORRINE inhibitor - Morphine 2 mg IV q3h PRN pain level 4 - 10 - 2-D echo with EF 60-65% Hypertension, controlled - Continue home lisinopril and Norvasc Soft left carotid bruit - Carotid ultrasound with finding of Increased systolic velocities in the carotid arteries bilaterally but without sonographic evidence for hemodynamically significant stenosis. Hyperlipidemia -Continue Lipitor 20mg at bedtime Constipation Give magnesium citrate 1 now Penny-Colace when necessary DVT prophylaxis - Heparin 5000 units subcutaneous every 8 hours Rodo Bell MD Dec 13, 2016 12:29
[2016-12-13] MEDS ORDERED: DOCUSATE SODIUM 50 MG/SENNA 8.6 MG TAB PO PRN (12:30)
[2016-12-13] MEDS ORDERED: MAGNESIUM CITRATE SOLN 300 ML BTL PO ONE (14:30)
--- NOTE | 2016-12-13 14:37 | PD.CARD.PN ---
Subjective Subjective Remarks No chest pain, no shortness of breath Ambulating the hallways Objective Medications Current Medications Medications (Trade) Dose Ordered Sig/Laquita Route Start Time Stop Time Status Last Admin (Tylenol) 500 mg Q4H PRN PO 12/09/16 20:15 (Nitroglycerin 2% Oint) 1 inch Q6HR TOPICAL 12/10/16 00:00 12/13/16 12:00 (Morphine Inj) 2 mg Q3H PRN IV PUSH 12/10/16 00:30 12/12/16 23:50 (Aspirin Chew) 81 mg DAILY CHEW 12/10/16 14:15 12/13/16 08:24 (Norvasc) 2.5 mg DAILY PO 12/11/16 09:00 12/13/16 08:24 (Pill Splitter) 1 ea UNSCH PRN OTHER 12/10/16 14:15 (Zofran Inj) 4 mg Q6H PRN IV 12/10/16 14:15 (Mag-Al Plus Susp Liq) 30 ml Q6H PRN PO 12/10/16 14:15 (Restoril) 15 mg HS PRN PO 12/10/16 14:15 (Lipitor) 20 mg HS PO 12/10/16 21:00 12/12/16 22:35 (NS Flush) 2 ml BID IV FLUSH 12/11/16 21:00 12/13/16 08:24 (NS Flush) 2 ml UNSCH PRN IV FLUSH 12/11/16 15:00 (Colace) 100 mg TID PO 12/12/16 09:00 12/13/16 12:27 (Bactroban Nasal 2% Oint) 1 applic BID EACH NARE 12/12/16 21:00 12/13/16 08:24 (Penny-Colace) 2 tab BID PRN PO 12/13/16 12:30 Vital Signs / I&O Vital Signs Date Time Temp Pulse Resp B/P Pulse Ox O2 Delivery O2 Flow Rate FiO2 12/13/16 12:00 97.7 82 18 129/73 97 12/13/16 12:00 77 12/13/16 11:00 80 12/13/16 10:00 82 12/13/16 09:00 86 12/13/16 08:00 97.6 76 18 144/82 96 12/13/16 08:00 75 12/13/16 07:00 86 12/13/16 06:00 79 12/13/16 05:00 73 12/13/16 04:05 73 12/13/16 04:00 98.2 63 20 135/82 98 12/13/16 03:00 77 12/13/16 02:00 86 12/13/16 01:00 88 12/13/16 00:00 98.0 66 18 140/82 96 12/13/16 00:00 68 12/12/16 23:00 68 12/12/16 22:00 70 12/12/16 21:00 69 12/12/16 20:00 98.1 82 18 155/83 96 12/12/16 20:00 68 12/12/16 19:00 82 12/12/16 18:00 84 12/12/16 17:00 68 12/12/16 16:00 76 12/12/16 16:00 97.8 76 20 124/80 96 12/12/16 15:00 66 I/O 12/12/16 12/12/16 12/12/16 12/13/16 12/13/16 12/13/16 07:00 15:00 23:00 07:00 15:00 23:00 Intake Total 440 ml 780 ml 240 ml Output Total 575 ml 1375 ml 425 ml Balance -135 ml -595 ml -185 ml Intake Oral 440 ml 780 ml 240 ml Output Urine Total 575 ml 1375 ml 425 ml # Bowel Movements 0 Physical Exam GENERAL: NAD, AAOx3 SKIN: Warm and dry. HEAD: Atraumatic. Normocephalic. EYES: Pupils equal and round. No scleral icterus. No injection or drainage. ENT: No nasal bleeding or discharge. Mucous membranes pink and moist. NECK: Trachea midline. No JVD. CARDIOVASCULAR: Regular rate and rhythm. RESPIRATORY: No accessory muscle use. Clear to auscultation. Breath sounds equal bilaterally. GASTROINTESTINAL: Abdomen soft, non-tender, nondistended. Hepatic and splenic margins not palpable. MUSCULOSKELETAL: Extremities without clubbing, cyanosis, or edema. No obvious deformities. NEUROLOGICAL: Awake and alert. No obvious cranial nerve deficits. Motor grossly within normal limits. Five out of 5 muscle strength in the arms and legs. Normal speech. Right radial no hematoma, neurovascularly intact PSYCHIATRIC: Appropriate mood and affect; insight and judgment normal. Laboratory Laboratory Tests Test 12/11/16 12/11/16 12/12/16 04:45 17:45 05:05 White Blood Count 7.7 TH/MM3 8.0 TH/MM3 (4.0-11.0) (4.0-11.0) Red Blood Count 4.56 MIL/MM3 4.78 MIL/MM3 (4.50-5.90) (4.50-5.90) Hemoglobin 13.0 GM/DL 13.3 GM/DL (13.0-17.0) (13.0-17.0) Hematocrit 38.3 % 40.4 % (39.0-51.0) (39.0-51.0) Mean Corpuscular Volume 83.9 FL 84.5 FL (80.0-100.0) (80.0-100.0) Mean Corpuscular Hemoglobin 28.6 PG 27.8 PG (27.0-34.0) (27.0-34.0) Mean Corpuscular Hemoglobin 34.0 % 32.9 % Concent (32.0-36.0) (32.0-36.0) Red Cell Distribution Width 14.8 % 14.7 % (11.6-17.2) (11.6-17.2) Platelet Count 189 TH/MM3 176 TH/MM3 (150-450) (150-450) Mean Platelet Volume 8.0 FL 7.8 FL (7.0-11.0) (7.0-11.0) Neutrophils (%) (Auto) 51.4 % 62.2 % (16.0-70.0) (16.0-70.0) Lymphocytes (%) (Auto) 34.6 % 24.9 % (9.0-44.0) (9.0-44.0) Monocytes (%) (Auto) 9.6 % (0.0-8.0) 9.8 % (0.0-8.0) Eosinophils (%) (Auto) 4.1 % (0.0-4.0) 2.7 % (0.0-4.0) Basophils (%) (Auto) 0.3 % (0.0-2.0) 0.4 % (0.0-2.0) Neutrophils # (Auto) 4.0 TH/MM3 5.0 TH/MM3 (1.8-7.7) (1.8-7.7) Lymphocytes # (Auto) 2.7 TH/MM3 2.0 TH/MM3 (1.0-4.8) (1.0-4.8) Monocytes # (Auto) 0.7 TH/MM3 0.8 TH/MM3 (0-0.9) (0-0.9) Eosinophils # (Auto) 0.3 TH/MM3 0.2 TH/MM3 (0-0.4) (0-0.4) Basophils # (Auto) 0.0 TH/MM3 0.0 TH/MM3 (0-0.2) (0-0.2) CBC Comment DIFF FINAL DIFF FINAL Differential Comment Sodium Level 137 MEQ/L 139 MEQ/L (136-145) (136-145) Potassium Level 4.1 MEQ/L 4.4 MEQ/L (3.5-5.1) (3.5-5.1) Chloride Level 103 MEQ/L 106 MEQ/L (98-107) (98-107) Carbon Dioxide Level 25.6 MEQ/L 29.0 MEQ/L (21.0-32.0) (21.0-32.0) Anion Gap 8 MEQ/L (5-15) 4 MEQ/L (5-15) Blood Urea Nitrogen 19 MG/DL (7-18) 17 MG/DL (7-18) Creatinine 1.11 MG/DL 1.08 MG/DL (0.60-1.30) (0.60-1.30) Estimat Glomerular Filtration 67 ML/MIN (>89) 70 ML/MIN (>89) Rate Random Glucose 88 MG/DL 92 MG/DL (74-106) (74-106) Calcium Level 8.4 MG/DL 8.5 MG/DL (8.5-10.1) (8.5-10.1) Urine Color YELLOW (YELLW/STRAW) Urine Turbidity CLEAR (CLEAR) Urine pH 6.5 (5.0-8.5) Urine Specific Malin 1.035 (1.002-1.035) Urine Protein NEG mg/dL (NEG-TRACE) Urine Glucose (UA) NEG mg/dL (NEG) Urine Ketones NEG mg/dL (NEG) Urine Occult Blood NEG (NEG) Urine Nitrite NEG (NEG) Urine Bilirubin NEG (NEG) Urine Urobilinogen LESS THAN 2.0 MG/DL (LESS THAN 2.0) Urine Leukocyte Esterase NEG (NEG) Urine WBC LESS THAN 1 /hpf (0-5) Microscopic Urinalysis Comment CULT NOT INDICATED Nasal Screen MRSA (PCR) MRSA DETECTED (NOT DETECT) Hemoglobin A1c 5.7 % (4.3-6.0) Assessment and Plan Problem List: (1) Chest pain (2) NSTEMI (non-ST elevated myocardial infarction) (3) Hypertension (4) Multi-vessel coronary artery stenosis Assessment and Plan 1) Post cath, doing well 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 Francis consulted for consideration of CABG, possible Friday 2) Con't ASA/Statin 3) No chest pain... if chest pain, consider restarting heparin drip 4) EF 60-65%, no significant valvular disease Sekou Maciel DO Dec 13, 2016 14:37
--- NOTE | 2016-12-13 15:20 | PD.CAR.PN ---
CVT Progress Note Subjective/Hospital Course: 61/ male presented to the emergency room complaining of intermittent chest pain occurring over the past 3-4 weeks that increased in frequency and changed in character over the past 2 days prompting his visit to the hospital. He states that over the past 3-4 weeks, he has been experiencing central chest pain that is described as a pressure and radiates down the inner aspect of his arms bilaterally. This symptom lasts for about 5 minutes and typically has been occurring in the morning after he eats breakfast. There is associated diaphoresis but he denies any nausea or vomiting with that. He states that the pains are nonexertional and resolve spontaneously. pt underwent cardiac cath by Dr Maciel, found to have multi vessel disease, EF 60% PMH: HTN 12/12 pt denies having chest pain on room air, scheduled for surgery on Wednesday 12/13 carotid US noted, elevated bilateral velocities / no hemodynamically significant stenosis no chest pain pt scheduled for surgery on Friday Objective: GENERAL: SKIN: Warm and dry. HEAD: Normocephalic. EYES: No scleral icterus. No injection or drainage. NECK: Supple, trachea midline. No JVD or lymphadenopathy. CARDIOVASCULAR: Regular rate and rhythm without murmurs, gallops, or rubs. RESPIRATORY: Breath sounds equal bilaterally. No accessory muscle use. GASTROINTESTINAL: Abdomen soft, non-tender, nondistended. MUSCULOSKELETAL: No cyanosis, or edema. BACK: Nontender without obvious deformity. No CVA tenderness. Vital Signs Date Time Temp Pulse Resp B/P Pulse Ox O2 Delivery O2 Flow Rate FiO2 12/13/16 12:00 97.7 82 18 129/73 97 12/13/16 12:00 77 12/13/16 11:00 80 12/13/16 10:00 82 12/13/16 09:00 86 12/13/16 08:00 97.6 76 18 144/82 96 12/13/16 08:00 75 12/13/16 07:00 86 12/13/16 06:00 79 12/13/16 05:00 73 12/13/16 04:05 73 12/13/16 04:00 98.2 63 20 135/82 98 12/13/16 03:00 77 12/13/16 02:00 86 12/13/16 01:00 88 12/13/16 00:00 98.0 66 18 140/82 96 12/13/16 00:00 68 12/12/16 23:00 68 12/12/16 22:00 70 12/12/16 21:00 69 12/12/16 20:00 98.1 82 18 155/83 96 12/12/16 20:00 68 12/12/16 19:00 82 12/12/16 18:00 84 12/12/16 17:00 68 12/12/16 16:00 76 12/12/16 16:00 97.8 76 20 124/80 96 Result Diagram: 12/12/16 0505 12/12/16 0505 (1) Chest pain (2) NSTEMI (non-ST elevated myocardial infarction) Plan: statin , ASA , start low dose BB for surgery on friday (3) Hypertension (4) Multi-vessel coronary artery stenosis Catherine Miranda Dec 13, 2016 15:20
[2016-12-13] MEDS: MORPHINE SULFATE 4 MG/ML INJ IV PUSH PRN ×2 (16:26→22:31)
[2016-12-13] MEDS: ATORVASTATIN 20 MG TAB PO SCH (21:11)
[2016-12-14] VITALS (28 sets, daily range): BP systolic 123–161; BP diastolic 69–92; PULSE 58–92; RESP 16–18; TEMP 97.7–98.7; O2SAT 95–98
[2016-12-14] MEDS: NITROGLYCERIN 2% OINT 1 GM PACKET TOPICAL SCH ×5 (00:01→23:25)
--- NOTE | 2016-12-14 08:55 | HHI.PR ---
Subjective Remarks Follow-up non-ST elevation [place] 12/10/16-patient seen and examined, patient continued to have substernal chest pain without any diaphoresis. Denies any headaches. by the bedside 12/11/16-patient seen and examined post heart catheterization and denies any chest pain or shortness of breath. Case was discussed with cardiology. 12/12/16-patient seen and examined, denies any chest pain or shortness of breath. 12/13/16-patient seen and examined; he was up and ambulating the hallway and denies any chest pain or shortness of breath. Only complains of constipation otherwise no other issues. 12/14/16-patient seen and examined, stable and no acute event overnight. Denies any chest pain. Afebrile. Objective Vitals Vital Signs Date Time Temp Pulse Resp B/P Pulse Ox O2 Delivery O2 Flow Rate FiO2 12/14/16 07:01 67 12/14/16 06:00 66 12/14/16 05:14 70 12/14/16 04:00 98.6 78 16 136/85 95 12/14/16 04:00 67 12/14/16 03:00 73 12/14/16 02:00 88 12/14/16 01:00 72 12/14/16 00:01 20 12/14/16 00:00 70 12/14/16 00:00 98.6 67 18 145/86 95 12/13/16 23:00 68 12/13/16 22:00 80 12/13/16 21:00 80 12/13/16 20:00 98.9 77 20 140/71 96 12/13/16 20:00 80 12/13/16 19:00 78 12/13/16 18:00 72 12/13/16 17:00 84 12/13/16 16:00 97.9 80 18 123/74 96 12/13/16 16:00 82 12/13/16 15:00 82 12/13/16 14:00 82 12/13/16 13:00 76 12/13/16 12:00 97.7 82 18 129/73 97 12/13/16 12:00 77 12/13/16 11:00 80 12/13/16 10:00 82 12/13/16 09:00 86 I/O 7/7/17 12/13/16 12/13/16 12/14/16 12/14/16 12/14/16 07:00 15:00 23:00 07:00 15:00 23:00 Intake Total 240 ml 900 ml 240 ml Output Total 425 ml 530 ml 150 ml Balance -185 ml 370 ml 90 ml Intake Oral 240 ml 900 ml 240 ml Output Urine Total 425 ml 530 ml 150 ml # Voids 2 # Bowel Movements 2 Result Diagram: 12/12/16 0505 12/12/16 0505 Objective Remarks GENERAL: NAD SKIN: Warm and dry. HEAD: Normocephalic. EYES: No scleral icterus. No injection or drainage. NECK: Supple, trachea midline. No JVD or lymphadenopathy. CARDIOVASCULAR: Regular rate and rhythm without murmurs, gallops, or rubs. RESPIRATORY: Breath sounds equal bilaterally. No accessory muscle use. GASTROINTESTINAL: Abdomen soft, non-tender, nondistended. MUSCULOSKELETAL: No cyanosis, or edema. BACK: Nontender without obvious deformity. No CVA tenderness. 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 Hyperlipidemia -Continue Lipitor 20mg at bedtime Constipation Resolved Penny-Colace when necessary DVT prophylaxis - Heparin 5000 units subcutaneous every 8 hours Rodo Bell MD Dec 14, 2016 08:55
[2016-12-14] MEDS: DOCUSATE SODIUM 100 MG CAP PO SCH ×3 (08:59→18:00)
[2016-12-14] MEDS: ASPIRIN 81 MG CHEW TAB CHEW SCH (08:59)
[2016-12-14] MEDS: SODIUM CHLORIDE 0.9% FLUSH 10 ML FLUSH IV FLUSH SCH ×2 (08:59→20:23)
[2016-12-14] MEDS: amLODIPine BESYLATE 5 MG TAB PO SCH (08:59)
[2016-12-14] MEDS: MUPIROCIN 2% OINT 1 APPLIC/GM SYR EACH NARE SCH ×2 (08:59→20:30)
--- NOTE | 2016-12-14 10:27 | PD.CARD.PN ---
Subjective Subjective Remarks No chest pain, no shortness of breath Feels well Objective Medications Current Medications Medications (Trade) Dose Ordered Sig/Laquita Route Start Time Stop Time Status Last Admin (Tylenol) 500 mg Q4H PRN PO 12/09/16 20:15 (Nitroglycerin 2% Oint) 1 inch Q6HR TOPICAL 12/10/16 00:00 12/14/16 06:36 (Morphine Inj) 2 mg Q3H PRN IV PUSH 12/10/16 00:30 12/13/16 22:31 (Aspirin Chew) 81 mg DAILY CHEW 12/10/16 14:15 12/14/16 08:59 (Norvasc) 2.5 mg DAILY PO 12/11/16 09:00 12/14/16 08:59 (Pill Splitter) 1 ea UNSCH PRN OTHER 12/10/16 14:15 (Zofran Inj) 4 mg Q6H PRN IV 12/10/16 14:15 (Mag-Al Plus Susp Liq) 30 ml Q6H PRN PO 12/10/16 14:15 (Restoril) 15 mg HS PRN PO 12/10/16 14:15 (Lipitor) 20 mg HS PO 12/10/16 21:00 12/13/16 21:11 (NS Flush) 2 ml BID IV FLUSH 12/11/16 21:00 12/14/16 08:59 (NS Flush) 2 ml UNSCH PRN IV FLUSH 12/11/16 15:00 (Colace) 100 mg TID PO 12/12/16 09:00 12/14/16 08:59 (Bactroban Nasal 2% Oint) 1 applic BID EACH NARE 12/12/16 21:00 12/14/16 08:59 (Penny-Colace) 2 tab BID PRN PO 12/13/16 12:30 Vital Signs / I&O Vital Signs Date Time Temp Pulse Resp B/P Pulse Ox O2 Delivery O2 Flow Rate FiO2 12/14/16 07:01 67 12/14/16 06:00 66 12/14/16 05:14 70 12/14/16 04:00 98.6 78 16 136/85 95 12/14/16 04:00 67 12/14/16 03:00 73 12/14/16 02:00 88 12/14/16 01:00 72 12/14/16 00:01 20 12/14/16 00:00 70 12/14/16 00:00 98.6 67 18 145/86 95 12/13/16 23:00 68 12/13/16 22:00 80 12/13/16 21:00 80 12/13/16 20:00 98.9 77 20 140/71 96 12/13/16 20:00 80 12/13/16 19:00 78 12/13/16 18:00 72 12/13/16 17:00 84 12/13/16 16:00 97.9 80 18 123/74 96 12/13/16 16:00 82 12/13/16 15:00 82 12/13/16 14:00 82 12/13/16 13:00 76 12/13/16 12:00 97.7 82 18 129/73 97 12/13/16 12:00 77 12/13/16 11:00 80 I/O 12/13/16 12/13/16 12/13/16 12/14/16 12/14/16 12/14/16 07:00 15:00 23:00 07:00 15:00 23:00 Intake Total 240 ml 900 ml 240 ml Output Total 425 ml 530 ml 150 ml Balance -185 ml 370 ml 90 ml Intake Oral 240 ml 900 ml 240 ml Output Urine Total 425 ml 530 ml 150 ml # Voids 2 # Bowel Movements 2 Physical Exam GENERAL: NAD, AAOx3 SKIN: Warm and dry. HEAD: Atraumatic. Normocephalic. EYES: Pupils equal and round. No scleral icterus. No injection or drainage. ENT: No nasal bleeding or discharge. Mucous membranes pink and moist. NECK: Trachea midline. No JVD. CARDIOVASCULAR: Regular rate and rhythm. RESPIRATORY: No accessory muscle use. Clear to auscultation. Breath sounds equal bilaterally. GASTROINTESTINAL: Abdomen soft, non-tender, nondistended. Hepatic and splenic margins not palpable. MUSCULOSKELETAL: Extremities without clubbing, cyanosis, or edema. No obvious deformities. Right radial no hematoma, neurovascularly intact NEUROLOGICAL: Awake and alert. No obvious cranial nerve deficits. Motor grossly within normal limits. Five out of 5 muscle strength in the arms and legs. Normal speech. PSYCHIATRIC: Appropriate mood and affect; insight and judgment normal. 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 Francis consulted for consideration of CABG, possible Friday 2) Con't ASA/Statin... hold CORRINE-I for planned surgery 3) No chest pain... if chest pain, consider restarting heparin drip 4) EF 60-65%, no significant valvular disease Sekou Maciel DO Dec 14, 2016 10:27
--- NOTE | 2016-12-14 10:49 | RADRPT ---
EXAM DATE/TIME: 12/14/2016 10:26 [facility] COMPARISON: CHEST SINGLE AP, December 09, 2016, 13:22. INDICATIONS : Evaluate for pneumothorax, pneumonia and communicable diseases. Pre-op CABG. MEDICAL HISTORY : Hypertension. Chest pain. Cardiac disorders. Substance use. SURGICAL HISTORY : Cardiac cath. Lump removed left shoulder. Abdominal surgery. Right ankle ENCOUNTER: Initial ACUITY: 1 day PAIN SCORE: 0/10 LOCATION: Bilateral chest FINDINGS: PA and lateral views of the chest demonstrate the lungs to be symmetrically aerated without evidence of mass, infiltrate or effusion. The cardiomediastinal contours are unremarkable. Osseous structure s are intact. CONCLUSION: Normal examination. Av Sharp MD on December 14, 2016 at 10:47 Board Certified Radiologist. This report was verified electronically.
[2016-12-14] MEDS: ATORVASTATIN 20 MG TAB PO SCH (20:23)
[2016-12-14] MEDS: MORPHINE SULFATE 4 MG/ML INJ IV PUSH PRN (20:23)
[2016-12-15] VITALS (28 sets, daily range): BP systolic 124–164; BP diastolic 80–97; PULSE 58–88; RESP 16–18; TEMP 97.9–98.3; O2SAT 97
[2016-12-15] MEDS: NITROGLYCERIN 2% OINT 1 GM PACKET TOPICAL SCH ×3 (05:34→18:11)
[2016-12-15] MEDS: DOCUSATE SODIUM 100 MG CAP PO SCH ×3 (08:14→18:00)
[2016-12-15] MEDS: MUPIROCIN 2% OINT 1 APPLIC/GM SYR EACH NARE SCH (08:14)
[2016-12-15] MEDS: amLODIPine BESYLATE 5 MG TAB PO SCH (08:14)
[2016-12-15] MEDS: ASPIRIN 81 MG CHEW TAB CHEW SCH (08:14)
[2016-12-15] MEDS: SODIUM CHLORIDE 0.9% FLUSH 10 ML FLUSH IV FLUSH SCH (08:14)
--- NOTE | 2016-12-15 08:29 | PD.CAR.PN ---
CVT Progress Note Subjective/Hospital Course: 61/ male presented to the emergency room complaining of intermittent chest pain occurring over the past 3-4 weeks that increased in frequency and changed in character over the past 2 days prompting his visit to the hospital. He states that over the past 3-4 weeks, he has been experiencing central chest pain that is described as a pressure and radiates down the inner aspect of his arms bilaterally. This symptom lasts for about 5 minutes and typically has been occurring in the morning after he eats breakfast. There is associated diaphoresis but he denies any nausea or vomiting with that. He states that the pains are nonexertional and resolve spontaneously. pt underwent cardiac cath by Dr Maciel, found to have multi vessel disease, EF 60% PMH: HTN 12/12 pt denies having chest pain on room air, scheduled for surgery on Wednesday 12/13 carotid US noted, elevated bilateral velocities / no hemodynamically significant stenosis no chest pain pt scheduled for surgery on Friday 12/15 OR in am Objective: Vital Signs Date Time Temp Pulse Resp B/P Pulse Ox O2 Delivery O2 Flow Rate FiO2 12/15/16 07:01 70 12/15/16 06:04 60 12/15/16 05:00 70 12/15/16 04:13 67 12/15/16 03:23 68 12/15/16 03:00 97.9 72 124/80 97 12/15/16 01:11 74 12/15/16 00:00 74 12/14/16 23:52 73 12/14/16 23:47 98.5 80 123/73 96 12/14/16 22:00 68 12/14/16 21:00 80 12/14/16 20:00 98.5 92 161/82 98 12/14/16 20:00 84 12/14/16 19:00 75 12/14/16 18:01 74 12/14/16 17:00 68 12/14/16 16:01 66 12/14/16 15:30 98.7 81 18 131/69 98 12/14/16 15:00 58 12/14/16 14:00 60 12/14/16 13:01 68 12/14/16 12:01 97.9 76 18 151/78 96 12/14/16 12:00 80 12/14/16 11:00 76 12/14/16 10:00 72 12/14/16 09:00 74 12/14/16 08:30 97.7 78 18 147/92 96 Labs: Laboratory Tests Test 12/15/16 05:21 Blood Type O NEGATIVE Antibody Screen NEGATIVE Result Diagram: 12/12/16 0505 12/12/16 0505 (1) Chest pain (2) NSTEMI (non-ST elevated myocardial infarction) Plan: statin , ASA , start low dose BB for surgery on friday (3) Hypertension (4) Multi-vessel coronary artery stenosis Chayo Francis MD Dec 15, 2016 08:29
--- NOTE | 2016-12-15 09:26 | HHI.PR ---
Subjective Remarks Follow-up non-ST elevation [place] 12/10/16-patient seen and examined, patient continued to have substernal chest pain without any diaphoresis. Denies any headaches. by the bedside 12/11/16-patient seen and examined post heart catheterization and denies any chest pain or shortness of breath. Case was discussed with cardiology. 12/12/16-patient seen and examined, denies any chest pain or shortness of breath. 12/13/16-patient seen and examined; he was up and ambulating the hallway and denies any chest pain or shortness of breath. Only complains of constipation otherwise no other issues. 12/14/16-patient seen and examined, stable and no acute event overnight. Denies any chest pain. Afebrile. 12/15/16-patient seen and examined, reports some mild chest discomfort/pain overnight otherwise stable this morning Objective Vitals Vital Signs Date Time Temp Pulse Resp B/P Pulse Ox O2 Delivery O2 Flow Rate FiO2 12/15/16 07:01 70 12/15/16 06:04 60 12/15/16 05:00 70 12/15/16 04:13 67 12/15/16 03:23 68 12/15/16 03:00 97.9 72 124/80 97 12/15/16 01:11 74 12/15/16 00:00 74 12/14/16 23:52 73 12/14/16 23:47 98.5 80 123/73 96 12/14/16 22:00 68 12/14/16 21:00 80 12/14/16 20:00 98.5 92 161/82 98 12/14/16 20:00 84 12/14/16 19:00 75 12/14/16 18:01 74 12/14/16 17:00 68 12/14/16 16:01 66 12/14/16 15:30 98.7 81 18 131/69 98 12/14/16 15:00 58 12/14/16 14:00 60 12/14/16 13:01 68 12/14/16 12:01 97.9 76 18 151/78 96 12/14/16 12:00 80 12/14/16 11:00 76 12/14/16 10:00 72 I/O 12/14/16 12/14/16 12/14/16 12/15/169/17 7/9/17 07:00 15:00 23:00 07:00 15:00 23:00 Intake Total 240 ml 450 ml 720 ml Output Total 150 ml 600 ml 1425 ml Balance 90 ml -150 ml -705 ml Intake Oral 240 ml 450 ml 720 ml Output Urine Total 150 ml 600 ml 1425 ml # Voids 3 # Bowel Movements 0 Result Diagram: 12/12/16 0505 12/12/16 0505 Objective Remarks GENERAL: NAD SKIN: Warm and dry. HEAD: Normocephalic. EYES: No scleral icterus. No injection or drainage. NECK: Supple, trachea midline. No JVD or lymphadenopathy. CARDIOVASCULAR: Regular rate and rhythm without murmurs, gallops, or rubs. RESPIRATORY: Breath sounds equal bilaterally. No accessory muscle use. GASTROINTESTINAL: Abdomen soft, non-tender, nondistended. MUSCULOSKELETAL: No cyanosis, or edema. BACK: Nontender without obvious deformity. No CVA tenderness. 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 Hyperlipidemia -Continue Lipitor 20mg at bedtime Constipation Resolved Penny-Colace when necessary DVT prophylaxis - Hold Heparin 5000 units subcutaneous every 8 hours Rodo Bell MD Dec 15, 2016 09:26
--- NOTE | 2016-12-15 11:35 | PD.CARD.PN ---
Subjective Subjective Remarks No events over night, up feeling well Objective Medications Current Medications Medications (Trade) Dose Ordered Sig/Laquita Route Start Time Stop Time Status Last Admin (Tylenol) 500 mg Q4H PRN PO 12/09/16 20:15 (Nitroglycerin 2% Oint) 1 inch Q6HR TOPICAL 12/10/16 00:00 12/15/16 05:34 (Morphine Inj) 2 mg Q3H PRN IV PUSH 12/10/16 00:30 12/14/16 20:23 (Aspirin Chew) 81 mg DAILY CHEW 12/10/16 14:15 12/15/16 08:14 (Norvasc) 2.5 mg DAILY PO 12/11/16 09:00 12/15/16 08:14 (Pill Splitter) 1 ea UNSCH PRN OTHER 12/10/16 14:15 (Zofran Inj) 4 mg Q6H PRN IV 12/10/16 14:15 (Mag-Al Plus Susp Liq) 30 ml Q6H PRN PO 12/10/16 14:15 (Restoril) 15 mg HS PRN PO 12/10/16 14:15 (Lipitor) 20 mg HS PO 12/10/16 21:00 12/14/16 20:23 (NS Flush) 2 ml BID IV FLUSH 12/11/16 21:00 12/15/16 08:14 (NS Flush) 2 ml UNSCH PRN IV FLUSH 12/11/16 15:00 (Colace) 100 mg TID PO 12/12/16 09:00 12/15/16 08:14 (Bactroban Nasal 2% Oint) 1 applic BID EACH NARE 12/12/16 21:00 12/15/16 08:14 (Penny-Colace) 2 tab BID PRN PO 12/13/16 12:30 Vital Signs / I&O Vital Signs Date Time Temp Pulse Resp B/P Pulse Ox O2 Delivery O2 Flow Rate FiO2 12/15/16 10:01 84 12/15/16 09:00 72 12/15/16 08:15 98.3 69 18 150/81 97 12/15/16 08:00 70 12/15/16 07:01 70 12/15/16 06:04 60 12/15/16 05:00 70 12/15/16 04:13 67 12/15/16 03:23 68 12/15/16 03:00 97.9 72 124/80 97 12/15/16 01:11 74 12/15/16 00:00 74 12/14/16 23:52 73 12/14/16 23:47 98.5 80 123/73 96 12/14/16 22:00 68 12/14/16 21:00 80 12/14/16 20:00 98.5 92 161/82 98 12/14/16 20:00 84 12/14/16 19:00 75 12/14/16 18:01 74 12/14/16 17:00 68 12/14/16 16:01 66 12/14/16 15:30 98.7 81 18 131/69 98 12/14/16 15:00 58 12/14/16 14:00 60 12/14/16 13:01 68 12/14/16 12:01 97.9 76 18 151/78 96 12/14/16 12:00 80 I/O 12/14/16 12/14/16 12/14/16 12/15/16 12/15/16 12/15/16 07:00 15:00 23:00 07:00 15:00 23:00 Intake Total 240 ml 450 ml 720 ml Output Total 150 ml 600 ml 1425 ml Balance 90 ml -150 ml -705 ml Intake Oral 240 ml 450 ml 720 ml Output Urine Total 150 ml 600 ml 1425 ml # Voids 3 # Bowel Movements 0 Physical Exam GENERAL: NAD, AAOx3 SKIN: Warm and dry. HEAD: Atraumatic. Normocephalic. EYES: Pupils equal and round. No scleral icterus. No injection or drainage. ENT: No nasal bleeding or discharge. Mucous membranes pink and moist. NECK: Trachea midline. No JVD. CARDIOVASCULAR: Regular rate and rhythm. RESPIRATORY: No accessory muscle use. Clear to auscultation. Breath sounds equal bilaterally. GASTROINTESTINAL: Abdomen soft, non-tender, nondistended. Hepatic and splenic margins not palpable. MUSCULOSKELETAL: Extremities without clubbing, cyanosis, or edema. No obvious deformities. Right radial no hematoma, neurovascularly intact NEUROLOGICAL: Awake and alert. No obvious cranial nerve deficits. Motor grossly within normal limits. Five out of 5 muscle strength in the arms and legs. Normal speech. PSYCHIATRIC: Appropriate mood and affect; insight and judgment normal. 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 Francis consulted for consideration of CABG, planned for tomorrow 2) Con't ASA/Statin... hold CORRINE-I for planned surgery 3) No concerning chest pain... if chest pain, consider restarting heparin drip 4) EF 60-65%, no significant valvular disease 5) Will see post-operatively Sekou Maciel DO Dec 15, 2016 11:35
[2016-12-15] MEDS: MORPHINE SULFATE 4 MG/ML INJ IV PUSH PRN (21:59)
[2016-12-16] VITALS (18 sets, daily range): BP systolic 93–143; BP diastolic 55–88; PULSE 60–93; RESP 11–18; TEMP 96.3–98.5; O2SAT 94–99
[2016-12-16] MEDS: NITROGLYCERIN 2% OINT 1 GM PACKET TOPICAL SCH ×4 (00:30→18:00)
[2016-12-16] MEDS: MUPIROCIN 2% OINT 1 APPLIC/GM SYR EACH NARE SCH ×3 (00:30→20:28)
[2016-12-16] MEDS: ATORVASTATIN 20 MG TAB PO SCH ×2 (00:30→20:27)
[2016-12-16] MEDS: SODIUM CHLORIDE 0.9% FLUSH 10 ML FLUSH IV FLUSH SCH ×3 (00:31→20:28)
[2016-12-16] MEDS ORDERED: GLYCOPYRROLATE 0.2 MG/ML VIAL IV ONE (05:00)
[2016-12-16] MEDS ORDERED: PROTAMINE SULFATE 250 MG/25 ML VIAL IV ONE (05:00)
[2016-12-16] MEDS ORDERED: MAGNESIUM SULFATE 1000 MG/2 ML VIAL (PED) IV ONE (05:00)
[2016-12-16] MEDS ORDERED: ARTIFICIAL TEARS OPTH OINT 3.5 APPLIC/3.5 GM TUBO ONE (05:00)
[2016-12-16] MEDS ORDERED: VECURONIUM BROMIDE 10 MG VIAL IV ONE (05:00)
[2016-12-16] MEDS ORDERED: HEPARIN SODIUM - SQ 10,000 UNITS/ML VIAL SQ ONE (05:00)
[2016-12-16] MEDS ORDERED: HEPARIN SODIUM - SQ 10,000 UNITS/ML VIAL ONE (06:12)
[2016-12-16] MEDS ORDERED: VANCOMYCIN HCL 1000 MG VIAL ONE (06:12)
[2016-12-16] MEDS ORDERED: ceFAZolin 2 GM PREMIX 50 ML ONE (06:12)
[2016-12-16] MEDS: amLODIPine BESYLATE 5 MG TAB PO SCH (09:00)
[2016-12-16] MEDS: ASPIRIN 81 MG CHEW TAB CHEW SCH (09:00)
[2016-12-16] MEDS: DOCUSATE SODIUM 100 MG CAP PO SCH ×3 (09:00→18:00)
[2016-12-16] MEDS ORDERED: ceFAZolin INJ 1,000 MG VIAL IV ONE (11:30)
[2016-12-16] MEDS ORDERED: ceFAZolin INJ 1,000 MG VIAL ONE (11:32)
[2016-12-16] MEDS ORDERED: ONDANSETRON HCL 4 MG/2 ML VIAL IV PUSH PRN (11:45)
[2016-12-16] MEDS ORDERED: MEPERIDINE HCL 25 MG/ML VIAL IV PRN (11:45)
[2016-12-16] MEDS ORDERED: hydrALAZINE HCL 20 MG/ML VIAL IV PRN (11:45)
[2016-12-16] MEDS ORDERED: RESP: ALBUTEROL 2.5 MG/IPRATROPIUM 0.5 MG NEB (PRN) NEB (11:45)
[2016-12-16] MEDS ORDERED: CALCIUM CHLORIDE 10% 1 GRAM/10 ML VIAL IV PRN (11:45)
[2016-12-16] MEDS ORDERED: MAGNESIUM SULFATE INJ 2 GM in SODIUM CHLORIDE 0.9% INJ 100 ML IV PRN ×4 (11:45)
[2016-12-16] MEDS ORDERED: POTASSIUM CHLOR 20 MEQ PREMIX 100 ML IV PRN ×2 (11:45)
[2016-12-16] MEDS ORDERED: ACETAMINOPHEN 650 MG SUPP RECTAL PRN (11:45)
[2016-12-16] MEDS ORDERED: POTASSIUM CHLORIDE 20 MEQ CONTROLLED RELEASE TAB PO PRN ×2 (11:45)
[2016-12-16] MEDS ORDERED: RESP: RACEPINEPHRINE 2.25% 0.5 ML NEB NEB PRN (11:45)
[2016-12-16] MEDS ORDERED: ALBUMIN HUMAN 5% 12.5 GM/250 ML BOTTLE IV PRN (11:45)
[2016-12-16] MEDS ORDERED: Post-op Orders (for Pharmacy) MISC OTHER ONE (11:45)
[2016-12-16] MEDS ORDERED: ACETAMINOPHEN 325 MG TAB PO PRN (11:45)
[2016-12-16] MEDS ORDERED: DEXTROSE 50% IN WATER 50 ML VIAL(D50) IV PUSH PRN (11:45)
[2016-12-16] MEDS ORDERED: SODIUM CHLORIDE 0.9% FLUSH 10 ML FLUSH IV FLUSH PRN (11:45)
[2016-12-16] MEDS ORDERED: METOPROLOL TARTRATE 5 MG/5 ML VIAL IV PUSH PRN (11:45)
[2016-12-16] MEDS ORDERED: MIDAZOLAM HCL 5 MG/5 ML VIAL ONE ×2 (12:09)
[2016-12-16] MEDS ORDERED: fentaNYL CITRATE 1000 MCG/20 ML VIAL ONE (12:09)
[2016-12-16] MEDS: CALCIUM CHLORIDE INJ 1 GM in SODIUM CHLORIDE 0.9% INJ 100 ML IV PRN ×2 (12:35→17:27)
[2016-12-16] MEDS ORDERED: DEXMEDETOMIDINE INJ 200 MCG in SODIUM CHLORIDE 0.9% INJ 50 ML IV SCH (13:00)
[2016-12-16] MEDS ORDERED: DOBUTamine PREMIX DRIP 250 ML IV SCH (13:00)
[2016-12-16] MEDS ORDERED: DOPamine INJ PREMIX 500 ML IV SCH (13:00)
[2016-12-16] MEDS ORDERED: PHENYLEPHRINE INJ 40 MG in DEXTROSE 5% IN WATE 500 ML INJ 496 ML IV SCH ×2 (13:00)
[2016-12-16] MEDS ORDERED: NITROGLYCERIN-DEXTROSE INJ 250 ML IV SCH (13:00)
[2016-12-16] MEDS ORDERED: EPINEPHrine (1:1000) INJ 4 MG in DEXTROSE 5% IN WATER INJ 246 ML IV SCH ×2 (13:00)
[2016-12-16] MEDS: ACETAMINOPHEN 1000 MG/100 ML VIAL IV SCH ×2 (13:06→19:29)
[2016-12-16] MEDS: POTASSIUM CHLOR 20 MEQ PREMIX 100 ML IV PRN ×2 (13:28→17:27)
[2016-12-16] MEDS ORDERED: MORPHINE SULFATE 8 MG/ML INJ IV PUSH PRN (13:30)
--- NOTE | 2016-12-16 13:36 | RADRPT ---
EXAM DATE/TIME: 12/16/2016 12:24 [facility] COMPARISON: CHEST PA & LAT, December 14, 2016, 10:26. INDICATIONS : S/P CABG. MEDICAL HISTORY : Hypertension. Myocardial infarction SURGICAL HISTORY : Lump removed left shoulder. Right ankle surgery. Exploratory laparotomy. ENCOUNTER: Subsequent ACUITY: 4 - 6 days PAIN SCORE: 0/10 LOCATION: Bilateral chest FINDINGS: The endotracheal tube, NG tube, chest tube, mediastinal drain and subclavian central catheter are all in good position. There is atelectasis in the mid left lung field. The lungs are otherwise clear. Th e bony structures are grossly intact. CONCLUSION: 1. Stable post operative chest. Gen Garcia MD on December 16, 2016 at 13:34 Board Certified Radiologist. This report was verified electronically.
[2016-12-16] MEDS: CLEVIDIPINE INJ 50 ML IV SCH ×2 (13:49→19:30)
--- NOTE | 2016-12-16 13:58 | PD.OP ---
cc: Chayo Francis MD; Sekou Maciel DO Operative Report Date of Surgery: Dec 16, 2016 Preoperative Diagnosis: Postoperative Diagnosis: Procedure: 1. Off-pump Coronary Artery Bypass Grafting x 4 with Left Internal Mammary Artery (JERRY) to Left Anterior Descending (LAD), reverse saphenous vein graft to Diagonal 1 (D1), reverse saphenous vein graft to the Obtuse Marginal 1 (OM1) , reverse saphenous vein graft to the Posterior Descending branch of the Right Coronary Artery (RPDA) 2. Left Leg Endoscopic Vein [place] 3. Intraoperative Vein Mapping. . Surgeon: Chayo Francis District Plant Engineer(s): Kisha Martinez Operation and Findings: PREPROCEDURE DIAGNOSES 1. Severe Multi Vessel Coronary Artery Disease. 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 Off-pump Coronary Artery Bypass Grafting x 4 with Left Internal Mammary Artery (JERRY) to Left Anterior Descending (LAD), reverse saphenous vein graft to Diagonal 1 (D1), reverse saphenous vein graft to the Obtuse Marginal 1 (OM1) , reverse saphenous vein graft to the Posterior Descending branch of the Right Coronary Artery (RPDA) 2. Left Leg Endoscopic Vein [place] 3. Intraoperative Vein Mapping. SURGEON Chayo Francis MD DIE FORGER DELMAR Lemos [facility] ANESTHESIA General endotracheal RIGHT OF WAY AGENT MELANIE Mahoney MD PREPARATION ChloraPrep. COUNTS Needle, sponge, and instrument counts were correct. DRAINS Two 32-Frisian mediastinal tubes. COMPLICATIONS None. INDICATIONS FOR PROCEDURE The patient is a 61-year-old presenting with chest pain. Patient was noted to have multi-vessel coronary artery disease. The patient is being brought to the operating room for surgical revascularization therapy. PROCEDURE Patient was brought to the operating room and placed supine on the OR table. Following the induction of adequate general endotracheal anesthesia and placement of appropriate monitoring devices, intraoperative vein mapping was performed which revealed suitable-caliber conduit in bilateral thighs. The patient was then prepped and draped in standard sterile fashion. Next, 2500 units of intravenous heparin was given. The left greater saphenous vein was harvested endoscopically. This appeared to be a useable-caliber conduit. Simultaneously, a median sternotomy was performed and the left internal mammary artery dissected free off the posterior sternal table. The patient was systemically heparinized and anticoagulation monitored by serial ACT measurements. The internal mammary artery had excellent pulsatile flow in it and was a good-caliber conduit. The pericardium was then divided in the midline , the cradle created and targets analyzed. At this point, all anastomoses were performed in a beating-heart fashion using the Maquet stabilizing system. The left internal mammary artery was anastomosed to the mid LAD (2 mm) in an end-to- side fashion using 7-0 Prolene. Segment of saphenous vein graft was then anastomosed to the D1 (1.75 mm) in an end-to-side fashion using 7-0 Prolene. The next segment was anastomosed to OM1 (1.75 mm) in an end-to-side fashion using 7-0 Prolene. The final segment was anastomosed to the RPDA (2.0 mm) in an end-to-side fashion using 7-0 Prolene. The proximal anastomoses were then constructed to the ascending aorta in a running manner using 6-0 Prolene. All anastomotic sites were inspected and appeared to be hemostatic and patent. Protamine solution was given. Strict hemostasis was assured. The closure was undertaken. 2 chest tubes were placed. The pericardium was reapproximated in the midline. The sternum was approximated using sternal wires. The muscular and fascial layer were then closed in 3 layers. The endoscopic vein harvest site was closed in 2 layers. The patient tolerated the procedure well and was transferred to CVICU in stable condition. Chayo Francis MD Dec 16, 2016 13:58
[2016-12-16] MEDS ORDERED: INSULIN REGULAR (IV INFUSION) 100 UNITS in SODIUM CHLORIDE 0.9% INJ 99 ML IV SCH (14:00)
[2016-12-16] MEDS ORDERED: PHENYLEPH/NS 1000 MCG/10 ML SYR IV ONE (14:22)
[2016-12-16] MEDS ORDERED: SODIUM CHLOR 0.9% 250 ML INJ 250 ML IV ONE (14:23)
[2016-12-16] MEDS ORDERED: LACTATED RINGER'S 1000 ML INJ 2,000 ML IV ONE (14:23)
[2016-12-16] MEDS ORDERED: SODIUM CHLORIDE 0.9% INJ 100 ML IV ONE (14:23)
[2016-12-16] MEDS ORDERED: NORMOSOL R INJ 2,000 ML IV ONE (14:23)
[2016-12-16] MEDS: ceFAZolin 2 GM PREMIX 50 ML IV SCH ×2 (16:12→23:57)
[2016-12-16] MEDS: RESP: ALBUTEROL 2.5 MG/IPRATROPIUM 0.5 MG NEB (SCH) NEB ×2 (16:45→21:51)
--- NOTE | 2016-12-16 17:40 | PD.CARD.PN ---
Subjective Subjective Remarks Patient was seen earlier, post-op, doing well No pressor support needed Objective Medications Current Medications Medications (Trade) Dose Ordered Sig/Laquita Route Start Time Stop Time Status Last Admin (Nitroglycerin 2% Oint) 1 inch Q6HR TOPICAL 12/10/16 00:00 12/16/16 05:07 (Norvasc) 2.5 mg DAILY PO 12/11/16 09:00 12/15/16 08:14 (Pill Splitter) 1 ea UNSCH PRN OTHER 12/10/16 14:15 (Mag-Al Plus Susp Liq) 30 ml Q6H PRN PO 12/10/16 14:15 (Restoril) 15 mg HS PRN PO 12/10/16 14:15 (Lipitor) 20 mg HS PO 12/10/16 21:00 12/16/16 00:30 (NS Flush) 2 ml BID IV FLUSH 12/11/16 21:00 12/16/16 00:31 (NS Flush) 2 ml UNSCH PRN IV FLUSH 12/11/16 15:00 (Colace) 100 mg TID PO 12/12/16 09:00 12/15/16 08:14 (Bactroban Nasal 2% Oint) 1 applic BID EACH NARE 12/12/16 21:00 12/16/16 00:30 Senna/Docusate Sodium 2 tab 2 tab BID PRN PO 12/13/16 12:30 Dexmedetomidine HCl 200 mcg/ Sodium Chloride 52 ml @ 0 mls/hr TITRATE IV 12/16/16 13:00 Nitroglycerin/ Dextrose 250 ml @ 0 mls/hr TITRATE IV 12/16/16 13:00 Dobutamine HCl/ Dextrose 250 ml @ 11.85 mls/ hr Q21H6M IV 12/16/16 13:00 Dopamine HCl/ Dextrose 500 ml @ 0 mls/hr TITRATE IV 12/16/16 13:00 Epinephrine HCl 4 mg/Dextrose 250 ml @ 0 mls/hr TITRATE IV 12/16/16 13:00 Phenylephrine HCl 40 mg/Dextrose 500 ml @ 0 mls/hr TITRATE IV 12/16/16 13:00 (Cleviprex Inj) 50 ml @ 0 mls/hr TITRATE IV 12/16/16 13:00 12/16/16 13:49 Albumin Human 12.5 gm 12.5 gm UNSCH PRN IV 12/16/16 11:45 (Lr 1000 ml Inj) 500 ml @ 500 mls/hr Q1H PRN IV 12/16/16 11:35 (Aspirin Chew) 81 mg DAILY PO 12/17/16 09:00 (Plavix) 75 mg DAILY PO 12/17/16 09:00 (Protonix) 40 mg DAILY@06 PO 12/17/16 06:00 (Cordarone) 400 mg Q12HR PO 12/16/16 21:00 (Tylenol) 650 mg Q4H PRN PO 12/16/16 11:45 (Tylenol Supp) 650 mg Q4H PRN RECTAL 12/16/16 11:45 (Ofirmev Inj) 1,000 mg Q6H IV 12/16/16 13:00 12/17/16 07:01 12/16/16 13:06 (Demerol Inj) 12.5 mg Q4H PRN IV 12/16/16 11:45 (Percocet 5-325 Mg) 1 tab Q3H PRN PO 12/16/16 11:45 (Toradol Inj) 15 mg Q6H PRN IV PUSH 12/16/16 11:45 12/18/16 11:44 (fentaNYL INJ) 25 mcg Q1H PRN IV 12/16/16 11:45 (Zofran Inj) 4 mg Q6H PRN IV PUSH 12/16/16 11:45 12/16/16 16:25 (Apresoline Inj) 10 mg Q4H PRN IV 12/16/16 11:45 Metoprolol Tartrate 2.5 mg 2.5 mg Q1H PRN IV PUSH 12/16/16 11:45 Potassium Chloride 100 ml @ 50 mls/hr UNSCH PRN IV 12/16/16 11:45 12/16/16 17:27 Potassium Chloride 100 ml @ 50 mls/hr UNSCH PRN IV 12/16/16 11:45 Potassium Chloride 100 ml @ 50 mls/hr UNSCH PRN IV 12/16/16 11:45 Magnesium Sulfate 2 gm/Sodium Chloride 104 ml @ 100 mls/hr UNSCH PRN IV 12/16/16 11:45 Magnesium Sulfate 2 gm/Sodium Chloride 104 ml @ 50 mls/hr UNSCH PRN IV 12/16/16 11:45 (Calcium Chloride Inj/NS Inj) 110 ml @ 100 mls/hr UNSCH PRN IV 12/16/16 11:45 12/16/16 17:27 Calcium Chloride 0.5 gm 0.5 gm UNSCH PRN IV 12/16/16 11:45 (NovoLIN R (IV INFUSION)/NS Inj) 100 ml @ 0 mls/hr TITRATE IV 12/16/16 14:00 Dextrose 50 ml 50 ml UNSCH PRN IV PUSH 12/16/16 11:45 (Ancef 2 Gm Premix) 50 ml @ 100 mls/hr Q8H IV 12/16/16 16:00 12/18/16 00:29 12/16/16 16:12 (Morphine Inj) 2 mg Q3H PRN IV PUSH 12/16/16 13:30 Vital Signs / I&O Vital Signs Date Time Temp Pulse Resp B/P Pulse Ox O2 Delivery O2 Flow Rate FiO2 12/16/16 16:27 98.5 12/16/16 15:00 95 Nasal Cannula 3.00 12/16/16 15:00 87 12/16/16 15:00 98.5 77 18 120/62 95 12/16/16 14:05 95 Nasal Cannula 3.00 12/16/16 14:05 94 Nasal Cannula 3 12/16/16 14:05 40 12/16/16 13:17 97.3 12/16/16 12:07 97 40 12/16/16 12:00 87 12/16/16 12:00 96.3 87 11 101/55 97 93/60 12/16/16 12:00 60 12/16/16 12:00 97 Mechanical Ventilator 60 12/16/16 07:17 97.7 67 16 140/88 98 12/16/16 06:00 68 12/16/16 05:00 76 12/16/16 04:00 72 12/16/16 03:00 60 12/16/16 02:00 60 12/16/16 01:00 68 12/16/16 00:00 64 12/15/16 23:00 74 12/15/16 22:00 78 12/15/16 21:00 74 12/15/16 20:46 97.9 79 16 144/80 97 12/15/16 20:00 88 12/15/16 19:00 71 12/15/16 18:01 86 I/O 12/15/16 12/15/16 12/15/16 12/16/16 12/16/16 12/16/16 07:00 15:00 23:00 07:00 15:00 23:00 Intake Total 720 ml 690 ml 250 ml Output Total 1425 ml 1000 ml 550 ml Balance -705 ml -310 ml -300 ml Intake Oral 720 ml 690 ml 250 ml Output Urine Total 1425 ml 1000 ml 550 ml # Voids 4 # Bowel Movements 0 0 Physical Exam GENERAL: NAD, AAOx3 SKIN: Warm and dry. HEAD: Atraumatic. Normocephalic. EYES: Pupils equal and round. No scleral icterus. No injection or drainage. ENT: No nasal bleeding or discharge. Mucous membranes pink and moist. NECK: Trachea midline. No JVD. CARDIOVASCULAR: Regular rate and rhythm. RESPIRATORY: No accessory muscle use. Clear to auscultation. Breath sounds equal bilaterally. GASTROINTESTINAL: Abdomen soft, non-tender, nondistended. Hepatic and splenic margins not palpable. MUSCULOSKELETAL: Extremities without clubbing, cyanosis, or edema. No obvious deformities. Right radial no hematoma, neurovascularly intact NEUROLOGICAL: Awake and alert. No obvious cranial nerve deficits. Motor grossly within normal limits. Five out of 5 muscle strength in the arms and legs. Normal speech. PSYCHIATRIC: Appropriate mood and affect; insight and judgment normal. Assessment and Plan Problem List: (1) Chest pain (2) NSTEMI (non-ST elevated myocardial infarction) (3) Hypertension (4) Multi-vessel coronary artery stenosis (5) S/P CABG x 4 Assessment and Plan 1) s/p CABGx4, POD#0 JERRY to LAD SVG to D1 SVG to OM1 SVG to PDA 2) EF 60-65% pre-operatively 3) Con't ASA/Statin Sekou Maciel DO Dec 16, 2016 17:39
[2016-12-16] MEDS ORDERED: PILL SPLITTER OTHER PRN ×2 (18:45→19:30)
[2016-12-16] MEDS: oxyCODONE/ACETAMINOPHEN 5 MG/325 MG TAB PO PRN ×2 (19:29→23:57)
[2016-12-16] MEDS: AMIODARONE 200 MG TAB PO SCH (20:27)
[2016-12-16] MEDS ORDERED: METOPROLOL TARTRATE 25 MG TAB PO SCH ×3 (21:00)
[2016-12-16] MEDS ORDERED: SODIUM CHLORIDE 0.9% FLUSH 10 ML FLUSH IV FLUSH SCH (21:00)
[2016-12-16] MEDS: KETOROLAC TROMETHAMINE 30 MG/ML (IVP) VIAL IV PUSH PRN (22:30)
[2016-12-17] VITALS (17 sets, daily range): BP systolic 116–144; BP diastolic 54–83; PULSE 75–96; RESP 16–18; TEMP 98.2–98.8; O2SAT 92–100
[2016-12-17] MEDS: ACETAMINOPHEN 1000 MG/100 ML VIAL IV SCH ×2 (01:00→07:00)
[2016-12-17] MEDS: CLEVIDIPINE INJ 50 ML IV SCH ×2 (01:07→05:11)
[2016-12-17] MEDS: LACTATED RINGER'S 1000 ML INJ 500 ML IV PRN ×2 (01:07→02:52)
[2016-12-17] MEDS: oxyCODONE/ACETAMINOPHEN 5 MG/325 MG TAB PO PRN ×3 (03:30→14:04)
[2016-12-17] MEDS: RESP: ALBUTEROL 2.5 MG/IPRATROPIUM 0.5 MG NEB (SCH) NEB ×4 (03:32→20:31)
[2016-12-17] MEDS ORDERED: FUROSEMIDE 40 MG/4 ML VIAL ONE (04:13)
[2016-12-17 04:21] LABS: HEMATOCRIT 34.4 % (39.0-51.0); MEAN CELL VOLUME 83.5 FL (80.0-100.0); MEAN CORPUSCULAR HEMOGLOBIN 27.8 PG (27.0-34.0); MEAN CORPUSCULAR HGB CONC 33.3 % (32.0-36.0); PLATELET COUNT 221 TH/MM3 (150-450); RED BLOOD COUNT 4.11 MIL/MM3 (4.50-5.90); RED CELL DISTRIBUTION WIDTH 14.3 % (11.6-17.2); REVIEW FLAG FINAL; WHITE BLOOD COUNT 14.4 TH/MM3 (4.0-11.0)
[2016-12-17 04:30] LABS: MAGNESIUM 1.8 MG/DL (1.5-2.5); POTASSIUM 4.8 MEQ/L (3.5-5.1)
[2016-12-17] MEDS ORDERED: FUROSEMIDE 20 MG/2 ML VIAL IV PUSH SCH (05:00)
[2016-12-17] MEDS: KETOROLAC TROMETHAMINE 30 MG/ML (IVP) VIAL IV PUSH PRN ×2 (05:02→17:41)
[2016-12-17] MEDS: NITROGLYCERIN 2% OINT 1 GM PACKET TOPICAL SCH ×2 (05:03)
[2016-12-17] MEDS: PANTOPRAZOLE SOD 40 MG DELAYED RELEASE TAB PO SCH (05:03)
--- NOTE | 2016-12-17 06:29 | RADRPT ---
EXAM DATE/TIME: 12/17/2016 05:32 [facility] COMPARISON: CHEST SINGLE AP, December 16, 2016, 12:24. INDICATIONS : Short of breath. MEDICAL HISTORY : Hypertension. Myocardial infarction SURGICAL HISTORY : Lump removed left shoulder. Right ankle surgery. Exploratory laparotomy. ENCOUNTER: Subsequent ACUITY: 3 days PAIN SCORE: 0/10 LOCATION: Bilateral chest FINDINGS: Left chest tube remains in place. No pneumothorax seen. Mild atelectasis in the left mid lung again s een and there is mild patchy atelectasis medially in the right lower lung. No large effusion. Heart size stable, within normal limits. Patient has had median sternotomy. Mediastinal drain remains in place. Patient has been extubated. Nasogastric tube also well. Left subclavian central venous catheter remai ns in place, tip in the superior vena cava. CONCLUSION: 1. Interim extubation and nasogastric tube removal. Left chest tube, mediastinal drain and left subcl jesus central venous catheter remain. 2. Mild bilateral atelectasis unchanged. Please see above. Justin Dhillon MD on December 17, 2016 at 6:27 Board Certified Radiologist. This report was verified electronically.
[2016-12-17] MEDS: ceFAZolin 2 GM PREMIX 50 ML IV SCH ×2 (08:11→15:37)
[2016-12-17] MEDS ORDERED: GLUCAGON 1 MG/ML VIAL OTHER PRN (08:45)
[2016-12-17] MEDS ORDERED: BISACODYL 10 MG SUPP RECTAL PRN (08:45)
[2016-12-17] MEDS ORDERED: SOD PHOSPHATE/SOD BIPHOSPHATE (ADULT) ENEMA 133ML RECTAL PRN (08:45)
[2016-12-17] MEDS ORDERED: DEXTROSE 50% IN WATER 50 ML VIAL(D50) IV PRN (08:45)
[2016-12-17] MEDS: DOCUSATE SODIUM 100 MG CAP PO SCH ×3 (09:00→20:19)
[2016-12-17] MEDS: MULTIVITAMINS/MINERALS THERAPEUTIC TAB PO SCH (09:00)
[2016-12-17] MEDS: MAGNESIUM HYDROXIDE SUSP 30 ML CUP PO SCH (09:40)
[2016-12-17] MEDS: MUPIROCIN 2% OINT 1 APPLIC/GM SYR EACH NARE SCH ×2 (09:40→20:19)
[2016-12-17] MEDS: ASPIRIN 81 MG CHEW TAB PO SCH (09:41)
[2016-12-17] MEDS: CLOPIDOGREL 75 MG TAB PO SCH (09:41)
[2016-12-17] MEDS: METOPROLOL TARTRATE 25 MG TAB PO SCH ×2 (09:41→20:18)
[2016-12-17] MEDS: AMIODARONE 200 MG TAB PO SCH ×2 (09:41→20:19)
[2016-12-17] MEDS: SODIUM CHLORIDE 0.9% FLUSH 10 ML FLUSH IV FLUSH SCH ×2 (09:42→20:19)
--- NOTE | 2016-12-17 09:51 | RSPPFT ---
DATE OF PROCEDURE: 12/12/16 COMMENTS: VOLUMES DYNAMIC: FVC and FEV1 mildly reduced. FLOWS: FEV1% mildly reduced; FEF 25-75 moderately reduced. IMPRESSION: Mild to moderate obstructive ventilatory defect.
[2016-12-17] MEDS: INSULIN ASPART SUPPLEMENTAL SCALE SQ SCH ×4 (10:00→22:36)
--- NOTE | 2016-12-17 10:12 | EKG ---
Date Performed: 12/17/2016 Time Performed: 05:49:20 PTAGE: 61 years EKG: Sinus rhythm . Inferior infarct - age undetermined Abnormal ECG PREVIOUS TRACING : 12/10/2016 02.14 The apparent inferior infarct is new from the tracing one w [place] ago. T-wave abnormalities have improved. DOCTOR: Chris Castaneda Interpretating Date/Time 12/17/2016 10:11:23
--- NOTE | 2016-12-17 10:38 | PD.CAR.PN ---
CVT Progress Note Subjective/Hospital Course: 61/ male presented to the emergency room complaining of intermittent chest pain occurring over the past 3-4 weeks that increased in frequency and changed in character over the past 2 days prompting his visit to the hospital. He states that over the past 3-4 weeks, he has been experiencing central chest pain that is described as a pressure and radiates down the inner aspect of his arms bilaterally. This symptom lasts for about 5 minutes and typically has been occurring in the morning after he eats breakfast. There is associated diaphoresis but he denies any nausea or vomiting with that. He states that the pains are nonexertional and resolve spontaneously. pt underwent cardiac cath by Dr Maciel, found to have multi vessel disease, EF 60% PMH: HTN 12/12 pt denies having chest pain on room air, scheduled for surgery on Wednesday 12/13 carotid US noted, elevated bilateral velocities / no hemodynamically significant stenosis no chest pain pt scheduled for surgery on Friday 12/15 OR in am 12/16 surgery: 1. Off-pump Coronary Artery Bypass Grafting x 4 with Left Internal Mammary Artery (JERRY) to Left Anterior Descending (LAD), reverse saphenous vein graft to Diagonal 1 (D1), reverse saphenous vein graft to the Obtuse Marginal 1 (OM1), reverse saphenous vein graft to the Posterior Descending branch of the Right Coronary Artery (RPDA) 2. Left Leg Endoscopic Vein [place] extubated after surgery, 3000cc crystalloid, 400cc cell saver 200cc urine 12/17 low urine output last pm, recieved dose of lasix at 0500 weaned off cleviprex , on BB , resume amlodipine later leave chest tubes in on ASA, plavix statin , BB . Objective: GENERAL: SKIN: Warm and dry. prevena to chest , andres wrap to left leg HEAD: Normocephalic. EYES: No scleral icterus. No injection or drainage. NECK: Supple, trachea midline. No JVD or lymphadenopathy. CARDIOVASCULAR: Regular rate and rhythm without murmurs, gallops, or rubs. RESPIRATORY: diminished in bases Breath sounds equal bilaterally. No accessory muscle use. chestt ube to wall suction, no air leak drained 180cc/ 12 hrs GASTROINTESTINAL: Abdomen soft, non-tender, nondistended. MUSCULOSKELETAL: No cyanosis, or edema. BACK: Nontender without obvious deformity. No CVA tenderness. Vital Signs Date Time Temp Pulse Resp B/P Pulse Ox O2 Delivery O2 Flow Rate FiO2 12/17/16 07:20 98 Nasal Cannula 3.00 12/17/16 07:00 98 Nasal Cannula 3.00 12/17/16 07:00 98.3 89 18 128/76 99 119/54 12/17/16 07:00 89 12/17/16 03:00 98.5 75 16 116/76 99 124/62 12/17/16 03:00 99 Simple Mask 8.00 12/17/16 03:00 75 12/16/16 23:00 99 Simple Mask 10.00 12/16/16 23:00 93 12/16/16 23:00 98.4 92 12 143/78 99 134/64 12/16/16 22:00 99 Simple Mask 10.00 12/16/16 21:52 98 Simple Mask 10.00 12/16/16 19:00 98.2 88 16 134/82 94 141/69 12/16/16 19:00 94 Nasal Cannula 3.00 12/16/16 19:00 88 12/16/16 16:27 98.5 12/16/16 16:20 96 Nasal Cannula 3.00 12/16/16 15:00 95 Nasal Cannula 3.00 12/16/16 15:00 87 12/16/16 15:00 98.5 77 18 120/62 95 12/16/16 14:05 95 Nasal Cannula 3.00 12/16/16 14:05 94 Nasal Cannula 3 12/16/16 14:05 40 12/16/16 14:05 94 Nasal Cannula 3.00 12/16/16 13:17 97.3 12/16/16 12:07 97 40 12/16/16 12:00 87 12/16/16 12:00 96.3 87 11 101/55 97 93/60 12/16/16 12:00 60 12/16/16 12:00 97 Mechanical Ventilator 60 Labs: Laboratory Tests Test 12/17/16 03:55 White Blood Count 14.4 TH/MM3 (4.0-11.0) Red Blood Count 4.11 MIL/MM3 (4.50-5.90) Hemoglobin 11.5 GM/DL (13.0-17.0) Hematocrit 34.4 % (39.0-51.0) Mean Corpuscular Volume 83.5 FL (80.0-100.0) Mean Corpuscular Hemoglobin 27.8 PG (27.0-34.0) Mean Corpuscular Hemoglobin 33.3 % Concent (32.0-36.0) Red Cell Distribution Width 14.3 % (11.6-17.2) Platelet Count 221 TH/MM3 (150-450) Mean Platelet Volume 7.8 FL (7.0-11.0) Sodium Level 137 MEQ/L (136-145) Potassium Level 4.8 MEQ/L (3.5-5.1) Chloride Level 106 MEQ/L (98-107) Carbon Dioxide Level 24.0 MEQ/L (21.0-32.0) Anion Gap 7 MEQ/L (5-15) Blood Urea Nitrogen 16 MG/DL (7-18) Creatinine 1.14 MG/DL (0.60-1.30) Estimat Glomerular Filtration 65 ML/MIN (>89) Rate Random Glucose 120 MG/DL (74-106) Calcium Level 7.9 MG/DL (8.5-10.1) Magnesium Level 1.8 MG/DL (1.5-2.5) Result Diagram: 12/17/1635412/17/16354 Telemetry: NSR (1) Chest pain (2) NSTEMI (non-ST elevated myocardial infarction) (3) S/P CABG x 4 Plan: ASA, statin, plavix, BB gentle diuresis OOB, ambulate pulm toileting CM to eval [facility] (4) Hypertension Plan: BB, resume norvasc (5) Multi-vessel coronary artery stenosis Catherine Miranda Dec 17, 2016 10:38
[2016-12-17] MEDS: amLODIPine BESYLATE 5 MG TAB PO SCH (11:06)
--- NOTE | 2016-12-17 12:13 | PD.CARD.PN ---
Subjective Subjective Remarks Feels well, appropriate chest pain No shortness of breath Objective Medications Current Medications Medications (Trade) Dose Ordered Sig/Laquita Route Start Time Stop Time Status Last Admin (Norvasc) 2.5 mg DAILY PO 12/11/16 09:00 12/17/16 11:06 (Pill Splitter) 1 ea UNSCH PRN OTHER 12/10/16 14:15 (Mag-Al Plus Susp Liq) 30 ml Q6H PRN PO 12/10/16 14:15 (Restoril) 15 mg HS PRN PO 12/10/16 14:15 (NS Flush) 2 ml BID IV FLUSH 12/11/16 21:00 12/17/16 09:42 (NS Flush) 2 ml UNSCH PRN IV FLUSH 12/11/16 15:00 (Bactroban Nasal 2% Oint) 1 applic BID EACH NARE 12/12/16 21:00 12/17/16 09:40 (Penny-Colace) 2 tab BID PRN PO 12/13/16 12:30 (Aspirin Chew) 81 mg DAILY PO 12/17/16 09:00 12/17/16 09:41 (Plavix) 75 mg DAILY PO 12/17/16 09:00 12/17/16 09:41 (Protonix) 40 mg DAILY@06 PO 12/17/16 06:00 12/17/16 05:03 (Cordarone) 400 mg Q12HR PO 12/16/16 21:00 12/17/16 09:41 (Tylenol) 650 mg Q4H PRN PO 12/16/16 11:45 (Percocet 5-325 Mg) 1 tab Q3H PRN PO 12/16/16 11:45 12/17/16 11:06 (Toradol Inj) 15 mg Q6H PRN IV PUSH 12/16/16 11:45 12/18/16 11:44 12/16/16 22:30 (Zofran Inj) 4 mg Q6H PRN IV PUSH 12/16/16 11:45 12/16/16 16:25 (Apresoline Inj) 10 mg Q4H PRN IV 12/16/16 11:45 12/17/16 05:03 Metoprolol Tartrate 2.5 mg 2.5 mg Q1H PRN IV PUSH 12/16/16 11:45 12/16/16 21:31 Magnesium Sulfate 2 gm/Sodium Chloride 104 ml @ 100 mls/hr UNSCH PRN IV 12/16/16 11:45 Magnesium Sulfate 2 gm/Sodium Chloride 104 ml @ 50 mls/hr UNSCH PRN IV 12/16/16 11:45 12/17/16 05:49 (Ancef 2 Gm Premix) 50 ml @ 100 mls/hr Q8H IV 12/16/16 16:00 12/18/16 00:29 12/17/16 08:11 (Lopressor) 25 mg BID PO 12/17/16 09:00 12/17/16 09:41 (Colace) 100 mg BID PO 12/17/16 09:00 (Theragran M Tab) 1 tab DAILY PO 12/17/16 09:00 (Milk Of Magnesia Liq) 30 ml DAILY PO 12/17/16 09:00 12/17/16 09:40 (Miralax) 17 gm DAILY PO 12/18/16 09:00 (Senokot) 8.6 mg HS PO 12/17/16 21:00 (Fleets Enema (Adult)) 133 ml UNSCH PRN RECTAL 12/17/16 08:45 (NovoLOG SUPPLEMENTAL SCALE) 1 02,06,10,14,18,22 SQ 12/17/16 10:00 12/18/16 09:59 (D50w (Vial) Inj) 50 ml UNSCH PRN IV 12/17/16 08:45 (Glucagon Inj) 1 mg UNSCH PRN OTHER 12/17/16 08:45 (NovoLOG SUPPLEMENTAL SCALE) 1 ACHS SQ 12/18/16 11:00 (Lipitor) 40 mg HS PO 12/17/16 21:00 Vital Signs / I&O Vital Signs Date Time Temp Pulse Resp B/P Pulse Ox O2 Delivery O2 Flow Rate FiO2 12/17/16 12:05 83 12/17/16 11:00 98.2 96 18 144/83 100 Arterial Line 12/17/16 11:00 100 Nasal Cannula 2.00 12/17/16 11:00 86 12/17/16 07:20 98 Nasal Cannula 3.00 12/17/16 07:00 98 Nasal Cannula 3.00 12/17/16 07:00 98.3 89 18 128/76 99 119/54 12/17/16 07:00 89 12/17/16 03:00 98.5 75 16 116/76 99 124/62 12/17/16 03:00 99 Simple Mask 8.00 12/17/16 03:00 75 12/16/16 23:00 99 Simple Mask 10.00 12/16/16 23:00 93 12/16/16 23:00 98.4 92 12 143/78 99 134/64 12/16/16 22:00 99 Simple Mask 10.00 12/16/16 21:52 98 Simple Mask 10.00 12/16/16 19:00 98.2 88 16 134/82 94 141/69 12/16/16 19:00 94 Nasal Cannula 3.00 12/16/16 19:00 88 12/16/16 16:27 98.5 12/16/16 16:20 96 Nasal Cannula 3.00 12/16/16 15:00 95 Nasal Cannula 3.00 12/16/16 15:00 87 12/16/16 15:00 98.5 77 18 120/62 95 12/16/16 14:05 95 Nasal Cannula 3.00 12/16/16 14:05 94 Nasal Cannula 3 12/16/16 14:05 40 12/16/16 14:05 94 Nasal Cannula 3.00 12/16/16 13:17 97.3 I/O 12/16/16 12/16/16 12/16/16 12/17/16 12/17/16 12/17/16 07:00 15:00 23:00 07:00 15:00 23:00 Intake Total 250 ml 1903 ml 2701 ml Output Total 550 ml 675 ml 1030 ml Balance -300 ml 1228 ml 1671 ml Intake Oral 250 ml 720 ml IV Total 1903 ml 1731 ml Albumin 250 ml Output Urine Total 550 ml 405 ml 850 ml Chest Tube Drainage Total 270 ml 180 ml # Bowel Movements 0 0 0 Physical Exam GENERAL: NAD, AAOx3 SKIN: Warm and dry. HEAD: Atraumatic. Normocephalic. EYES: Pupils equal and round. No scleral icterus. No injection or drainage. ENT: No nasal bleeding or discharge. Mucous membranes pink and moist. NECK: Trachea midline. No JVD. CARDIOVASCULAR: Regular rate and rhythm. Sternotomy with wound vac RESPIRATORY: No accessory muscle use. Clear to auscultation. Breath sounds equal bilaterally. GASTROINTESTINAL: Abdomen soft, non-tender, nondistended. Hepatic and splenic margins not palpable. MUSCULOSKELETAL: Extremities without clubbing, cyanosis, or edema. No obvious deformities. Right radial no hematoma, neurovascularly intact NEUROLOGICAL: Awake and alert. No obvious cranial nerve deficits. Motor grossly within normal limits. Five out of 5 muscle strength in the arms and legs. Normal speech. PSYCHIATRIC: Appropriate mood and affect; insight and judgment normal. Laboratory Laboratory Tests Test 12/17/16 03:55 White Blood Count 14.4 TH/MM3 Red Blood Count 4.11 MIL/MM3 Hemoglobin 11.5 GM/DL Hematocrit 34.4 % Mean Corpuscular Volume 83.5 FL Mean Corpuscular Hemoglobin 27.8 PG Mean Corpuscular Hemoglobin 33.3 % Concent Red Cell Distribution Width 14.3 % Platelet Count 221 TH/MM3 Mean Platelet Volume 7.8 FL Sodium Level 137 MEQ/L Potassium Level 4.8 MEQ/L Chloride Level 106 MEQ/L Carbon Dioxide Level 24.0 MEQ/L Anion Gap 7 MEQ/L Blood Urea Nitrogen 16 MG/DL Creatinine 1.14 MG/DL Estimat Glomerular Filtration 65 ML/MIN Rate Random Glucose 120 MG/DL Calcium Level 7.9 MG/DL Magnesium Level 1.8 MG/DL Assessment and Plan Problem List: (1) Chest pain (2) NSTEMI (non-ST elevated myocardial infarction) (3) S/P CABG x 4 (4) Hypertension (5) Multi-vessel coronary artery stenosis Assessment and Plan 1) s/p CABGx4, POD#1 JERRY to LAD SVG to D1 SVG to OM1 SVG to PDA 2) EF 60-65% pre-operatively 3) Con't ASA/Statin/BB/Plavix/Amio 4) NSR on telemetry 5) PT/OT, IS to bedside Sekou Maciel DO Dec 17, 2016 12:13
[2016-12-17] MEDS ORDERED: FUROSEMIDE 20 MG/2 ML VIAL IV PUSH ONE (18:45)
[2016-12-17] MEDS: ATORVASTATIN 40 MG TAB PO SCH (20:18)
[2016-12-17] MEDS: SENNOSIDES 8.6 MG TAB PO SCH (20:18)
[2016-12-18] VITALS (32 sets, daily range): BP systolic 106–142; BP diastolic 64–82; PULSE 80–105; RESP 16–20; TEMP 97.6–100.4; O2SAT 92–96
[2016-12-18] MEDS: oxyCODONE/ACETAMINOPHEN 5 MG/325 MG TAB PO PRN ×4 (00:01→21:16)
[2016-12-18] MEDS: ceFAZolin 2 GM PREMIX 50 ML IV SCH (00:01)
[2016-12-18] MEDS: INSULIN ASPART SUPPLEMENTAL SCALE SQ SCH ×5 (03:26→21:00)
[2016-12-18] MEDS: RESP: ALBUTEROL 2.5 MG/IPRATROPIUM 0.5 MG NEB (SCH) NEB ×6 (03:40→19:39)
[2016-12-18] MEDS: PANTOPRAZOLE SOD 40 MG DELAYED RELEASE TAB PO SCH (05:15)
[2016-12-18 07:10] LABS: AUTOMATED NEUTROPHIL # 9.2 TH/MM3 (1.8-7.7); BASOPHIL % 0.2 % (0.0-2.0); EOSINOPHIL % 0.1 % (0.0-4.0); HEMATOCRIT 30.7 % (39.0-51.0); HEMO FLAGS DIFF FINAL; LYMPH % 12.5 % (9.0-44.0); LYMPHOCYTE # 1.6 TH/MM3 (1.0-4.8); MEAN CELL VOLUME 84.3 FL (80.0-100.0); MEAN CORPUSCULAR HEMOGLOBIN 27.8 PG (27.0-34.0); MONO % 14.5 % (0.0-8.0); NEUT % 72.7 % (16.0-70.0); PLATELET COUNT 170 TH/MM3 (150-450); RED BLOOD COUNT 3.64 MIL/MM3 (4.50-5.90); RED CELL DISTRIBUTION WIDTH 14.5 % (11.6-17.2); WHITE BLOOD COUNT 12.7 TH/MM3 (4.0-11.0)
[2016-12-18 07:20] LABS: INDIRECT BILIRUBIN 0.3 MG/DL (0.0-0.8); MAGNESIUM 2.3 MG/DL (1.5-2.5); POTASSIUM 4.4 MEQ/L (3.5-5.1); TOTAL BILIRUBIN ADULT 0.4 MG/DL (0.2-1.0)
[2016-12-18] MEDS: MUPIROCIN 2% OINT 1 APPLIC/GM SYR EACH NARE SCH ×2 (08:22→21:27)
[2016-12-18] MEDS: ASPIRIN 81 MG CHEW TAB PO SCH (08:22)
[2016-12-18] MEDS: CLOPIDOGREL 75 MG TAB PO SCH (08:23)
[2016-12-18] MEDS: MULTIVITAMINS/MINERALS THERAPEUTIC TAB PO SCH (08:23)
[2016-12-18] MEDS: DOCUSATE SODIUM 100 MG CAP PO SCH ×2 (08:23→21:17)
[2016-12-18] MEDS: POLYETHYLENE GLYCOL 17 GM PKG PO SCH (08:23)
[2016-12-18] MEDS: AMIODARONE 200 MG TAB PO SCH ×2 (08:23→21:17)
[2016-12-18] MEDS: SODIUM CHLORIDE 0.9% FLUSH 10 ML FLUSH IV FLUSH SCH ×2 (08:24→21:17)
[2016-12-18] MEDS: METOPROLOL TARTRATE 25 MG TAB PO SCH ×2 (10:24→21:17)
[2016-12-18] MEDS: MAGNESIUM HYDROXIDE SUSP 30 ML CUP PO SCH (10:24)
[2016-12-18] MEDS: amLODIPine BESYLATE 5 MG TAB PO SCH (11:59)
[2016-12-18 14:16] LABS: BLOOD, URINE NEG (NEG); COMMENT (UR) CULT NOT INDICATED; CULTURE IF INDICATED CULT NOT INDICATED; GLUCOSE,URINE NEG (NEG); HYALINE CAST, URINE 8 /lpf (RARE); KETONE, URINE NEG (NEG); NITRITE,URINE NEG (NEG); PH, URINE 5.5 (5.0-8.5); SQUAMOUS EPITHELIAL CELL URINE <1 /hpf (0-5); URINE COLOR YELLOW (YELLW/STRAW)
--- NOTE | 2016-12-18 14:19 | PD.CAR.PN ---
CVT Progress Note Subjective/Hospital Course: 61/ male presented to the emergency room complaining of intermittent chest pain occurring over the past 3-4 weeks that increased in frequency and changed in character over the past 2 days prompting his visit to the hospital. He states that over the past 3-4 weeks, he has been experiencing central chest pain that is described as a pressure and radiates down the inner aspect of his arms bilaterally. This symptom lasts for about 5 minutes and typically has been occurring in the morning after he eats breakfast. There is associated diaphoresis but he denies any nausea or vomiting with that. He states that the pains are nonexertional and resolve spontaneously. pt underwent cardiac cath by Dr Maciel, found to have multi vessel disease, EF 60% PMH: HTN 12/12 pt denies having chest pain on room air, scheduled for surgery on Wednesday 12/13 carotid US noted, elevated bilateral velocities / no hemodynamically significant stenosis no chest pain pt scheduled for surgery on Friday 12/15 OR in am 12/16 surgery: 1. Off-pump Coronary Artery Bypass Grafting x 4 with Left Internal Mammary Artery (JERRY) to Left Anterior Descending (LAD), reverse saphenous vein graft to Diagonal 1 (D1), reverse saphenous vein graft to the Obtuse Marginal 1 (OM1), reverse saphenous vein graft to the Posterior Descending branch of the Right Coronary Artery (RPDA) 2. Left Leg Endoscopic Vein Lodge extubated after surgery, 3000cc crystalloid, 400cc cell saver 200cc urine 12/17 low urine output last pm, recieved dose of lasix at 0500 weaned off cleviprex , on BB , resume amlodipine later leave chest tubes in on ASA, plavix statin , BB 12/18/16 pt had urinary retention this am , bladder scan 650cc mcdowell cath replaced, UA sent, started on flomax urology consulted gentle diuresis wean off 02 . Objective: GENERAL: SKIN: Warm and dry. prevena to chest , incision intact ot leg HEAD: Normocephalic. EYES: No scleral icterus. No injection or drainage. NECK: Supple, trachea midline. No JVD or lymphadenopathy. CARDIOVASCULAR: Regular rate and rhythm without murmurs, gallops, or rubs. RESPIRATORY: Breath sounds equal bilaterally. No accessory muscle use. chest tube removed without difficulty GASTROINTESTINAL: Abdomen soft, non-tender, nondistended. MUSCULOSKELETAL: No cyanosis, or edema. BACK: Nontender without obvious deformity. No CVA tenderness. Vital Signs Date Time Temp Pulse Resp B/P Pulse Ox O2 Delivery O2 Flow Rate FiO2 12/18/16 13:59 92 21 12/18/16 13:00 86 12/18/16 12:00 85 12/18/16 11:01 98.3 96 18 126/75 92 12/18/16 11:01 92 Room Air 12/18/16 11:00 95 12/18/16 10:00 94 12/18/16 09:00 88 12/18/16 08:00 96 Room Air 12/18/16 08:00 88 12/18/16 07:42 96 Nasal Cannula 1.50 12/18/16 07:30 97.6 88 20 142/82 96 12/18/16 07:00 85 12/18/16 06:25 88 12/18/16 05:54 93 12/18/16 04:00 94 12/18/16 03:00 Nasal Cannula 1.00 60 12/18/16 03:00 98.3 93 123/73 95 12/18/16 03:00 92 12/18/16 02:36 89 12/18/16 01:00 88 12/18/16 00:59 98.2 85 115/70 95 12/18/16 00:54 Nasal Cannula 1.00 60 12/18/16 00:00 90 12/17/16 23:00 90 12/17/16 22:00 84 12/17/16 21:00 94 12/17/16 20:30 92 21 12/17/16 20:00 82 12/17/16 19:00 79 12/17/16 19:00 98.8 85 129/83 99 12/17/16 19:00 Nasal Cannula 1.00 60 12/17/16 18:21 86 12/17/16 17:02 83 12/17/16 16:00 82 12/17/16 15:00 98.4 85 18 138/76 98 12/17/16 15:00 98 Nasal Cannula 1.00 12/17/16 15:00 78 Labs: Laboratory Tests Test 12/18/16 05:45 White Blood Count 12.7 TH/MM3 (4.0-11.0) Red Blood Count 3.64 MIL/MM3 (4.50-5.90) Hemoglobin 10.1 GM/DL (13.0-17.0) Hematocrit 30.7 % (39.0-51.0) Mean Corpuscular Volume 84.3 FL (80.0-100.0) Mean Corpuscular Hemoglobin 27.8 PG (27.0-34.0) Mean Corpuscular Hemoglobin 33.0 % Concent (32.0-36.0) Red Cell Distribution Width 14.5 % (11.6-17.2) Platelet Count 170 TH/MM3 (150-450) Mean Platelet Volume 8.2 FL (7.0-11.0) Neutrophils (%) (Auto) 72.7 % (16.0-70.0) Lymphocytes (%) (Auto) 12.5 % (9.0-44.0) Monocytes (%) (Auto) 14.5 % (0.0-8.0) Eosinophils (%) (Auto) 0.1 % (0.0-4.0) Basophils (%) (Auto) 0.2 % (0.0-2.0) Neutrophils # (Auto) 9.2 TH/MM3 (1.8-7.7) Lymphocytes # (Auto) 1.6 TH/MM3 (1.0-4.8) Monocytes # (Auto) 1.8 TH/MM3 (0-0.9) Eosinophils # (Auto) 0.0 TH/MM3 (0-0.4) Basophils # (Auto) 0.0 TH/MM3 (0-0.2) CBC Comment DIFF FINAL Differential Comment Sodium Level 133 MEQ/L (136-145) Potassium Level 4.4 MEQ/L (3.5-5.1) Chloride Level 99 MEQ/L (98-107) Carbon Dioxide Level 27.0 MEQ/L (21.0-32.0) Anion Gap 7 MEQ/L (5-15) Blood Urea Nitrogen 27 MG/DL (7-18) Creatinine 1.25 MG/DL (0.60-1.30) Estimat Glomerular Filtration 59 ML/MIN (>89) Rate Random Glucose 119 MG/DL (74-106) Calcium Level 8.4 MG/DL (8.5-10.1) Magnesium Level 2.3 MG/DL (1.5-2.5) Total Bilirubin 0.4 MG/DL (0.2-1.0) Direct Bilirubin 0.1 MG/DL (0.0-0.2) Indirect Bilirubin 0.3 MG/DL (0.0-0.8) Aspartate Amino Transf 17 U/L (15-37) (AST/SGOT) Alanine Aminotransferase 15 U/L (12-78) (ALT/SGPT) Alkaline Phosphatase 61 U/L (45-117) Total Protein 6.1 GM/DL (6.4-8.2) Albumin 2.8 GM/DL (3.4-5.0) Result Diagram: 12/18/1654412/18/16544 Telemetry: NSR (1) Chest pain (2) NSTEMI (non-ST elevated myocardial infarction) (3) S/P CABG x 4 Plan: ASA, statin, plavix, BB gentle diuresis OOB, ambulate pulm toileting CM to eval HHC (4) Hypertension Plan: BB, resume norvasc (5) Multi-vessel coronary artery stenosis (6) Urinary retention Plan: check UA, urology consult, Catherine Meade Dec 18, 2016 14:19
--- NOTE | 2016-12-18 14:27 | HHI.FF ---
Face to Face Verification Diagnosis: (1) NSTEMI (non-ST elevated myocardial infarction) (2) Hypertension (3) Urinary retention (4) S/P CABG x 4 Home Health Nursing Order: Signs/symptoms of disease process Wound care and dressing changes Nursing assessment with vital signs Instructions: Heart and Vascular Surgery patients *Special attention to sternal dressing Mandatory frequency Assess and evaluation, 4 days in a row The next week 3X week 2 times a week for 4 weeks 1 time a week for 5 weeks Schedule Heart and Vascular patients for full 60 day certification period Initial visit Review Open Heart Surgery Discharge Instructions (Sternal precautions, Activity, Elastic hose, Incision care, Driving, Incentive spirometry, Smoking, [place], Work and other) Need Betadine to paint incision Medication reconciliation Importance of follow up care/ check on appointments Make calendar record temperature daily When to call [facility] at Home nurse, review instructions, phone list Incentive Spirometry, demonstration Visit 1- Begin discharge instruction for patient family and/ or caregiver using teach back method- Signs and symptoms of infection Disease characteristics Medicines and side effects Foods and nutrition/ appetite Infection control/ hand washing/ hygiene Visit 2- Continue teaching Discharge instructions- include additional information on smoking cessation , sternal dressing (sternal vac) Visit 3- Continue teaching- Cough and deep breathing, incision monitoring. Choose my plate Visit 4- Continue teaching- Discuss limitations Discuss how they are feeling Discuss progress toward goals Remaining visits- continue teaching and monitoring PREVENA Single Use Negative Wound Therapy System Caregiver Instruction Sheet 1. A Prevena dressing system was applied to the chest incision during surgery , to promote wound healing. It works via a suction device (negative pressure wound therapy) to remove low to moderate levels of exudate (drainage) and infectious materials. We recommend that the device stay in place for up to seven days, from day of surgery. 2. Day of Surgery__/03/25 Day of Removal ____12/23/16 3. The dressing should only be removed by a health healthcare network pricing consultant. Please arrange removal of device to coincide with Home Health visit and or with Nursing staff at Rehab 4. If skin reddening or irritation of skin occurs, or excessive drainage, please notify the Cardiovascular Surgeons office at [phone]. 5. Light showering is permissible; however the pump should be disconnected and placed in safe location, where it will not get wet. The dressing should not be exposed to direct spray or submerged in water. No bath tub / shower only. Ensure the end of the tubing attached to the dressing is facing down so that water does not enter the top of the tube. 6. To remove Prevena dressing: press purple button to turn off device / remove the suction. Then disconnect the tubing from the pump. The fixation strips should be stretched away from the skin and the dressing lifted at one corner and peeled back until it has been fully removed. 7. After removal, it is ok to shower daily using liquid dial soap and clean wash cloth, rinse and pat dry, and leave incision open to air dry. For any concerns regarding Prevena dressing, and or wounds, please contact Liyah Elizabeth, patient navigator at [phone] or notify the Cardiovascular Surgeons office at [phone]. Incentive spirometry Q1 hr x 10, while awake, also use acapella device hourly whole awake Sternal Breast Bone Precautions: NO pushing or pulling, ( pt must use sternal pillow to support chest with all activities and with coughing ( takes up to 3 months breast bone to heal ) Daily incision care: ok to shower daily, no tub bath. Wash all incisions with liquid dial soap, clean wash cloth to each site, rinse and pat dry. Observe for any signs of infection, such as drainage which is dark yellow, guerrero, green or foul smelling. Immediately report to the surgeon any drainage from the chest incision, or legs, and for any abnormal drainage from the chest tube sites. Notify surgeon if any temp >101.5 degrees F. When specialty dressing removed/ or if you do not have one, continue to shower daily as above, then rinse and pat incision dry and paint with betadine daily x 5 days. Allow steri strips to fall off if you have any. Avoid lotions, creams, salves, oils, etc. for the first month Please see attached forms for additional instructions regarding post Open Heart specialty wound vacuum dressings. NEVILLE or Prevena , Dressing to be removed by Nursing staff on ___12/23/16____ For Dr. Mckenzie patients , please obtain CBC, BMP, PA & Lat CXR in 2 weeks, results to Dr. Mckenzie ( prescription will be given) ( ) (Tele: [phone]) , F/U appointment: as per [place] instructions: PCP in 2 weeks, CV surgeon 2 weeks, Neuroradiologist 3-4 weeks, urologist in one week For any questions regarding incisions/ dressing / meds / post op care or above Symptoms, Friday 8am-5pm Heart & Vascular Surgery Office ( Dr. Francis & Dr. Mckenzie), After Hours / Nights (5pm -8am) Weekends and Holidays Please call [facility] ([facility]) Charge Nurse I have seen patient Emigdio Matias Jr Jhoana on 12/18/16. My clinical findings support the need for the requested home health care services because: Deconditioned w/ increased weakness I certify that my clinical findings support that this patient is homebound because: Post-op weakness Catherine Miranda Dec 18, 2016 14:27
[2016-12-18] MEDS: TAMSULOSIN HCL 0.4 MG CAP PO SCH (14:28)
--- NOTE | 2016-12-18 18:12 | PD.CARD.PN ---
Subjective Subjective Remarks Doing well, no complaints Catheter placed back in last night due to urinary retention Objective Medications Current Medications Medications (Trade) Dose Ordered Sig/Laquita Route Start Time Stop Time Status Last Admin (Norvasc) 2.5 mg DAILY PO 12/11/16 09:00 12/18/16 11:59 (Pill Splitter) 1 ea UNSCH PRN OTHER 12/10/16 14:15 (Mag-Al Plus Susp Liq) 30 ml Q6H PRN PO 12/10/16 14:15 (Restoril) 15 mg HS PRN PO 12/10/16 14:15 12/18/16 00:01 (NS Flush) 2 ml BID IV FLUSH 12/11/16 21:00 12/18/16 08:24 (NS Flush) 2 ml UNSCH PRN IV FLUSH 12/11/16 15:00 (Bactroban Nasal 2% Oint) 1 applic BID EACH NARE 12/12/16 21:00 12/18/16 08:22 (Penny-Colace) 2 tab BID PRN PO 12/13/16 12:30 (Aspirin Chew) 81 mg DAILY PO 12/17/16 09:00 12/18/16 08:22 (Plavix) 75 mg DAILY PO 12/17/16 09:00 12/18/16 08:23 (Protonix) 40 mg DAILY@06 PO 12/17/16 06:00 12/18/16 05:15 (Cordarone) 400 mg Q12HR PO 12/16/16 21:00 12/18/16 08:23 (Tylenol) 650 mg Q4H PRN PO 12/16/16 11:45 (Percocet 5-325 Mg) 1 tab Q3H PRN PO 12/16/16 11:45 12/18/16 14:28 (Zofran Inj) 4 mg Q6H PRN IV PUSH 12/16/16 11:45 12/16/16 16:25 (Apresoline Inj) 10 mg Q4H PRN IV 12/16/16 11:45 12/17/16 05:03 Metoprolol Tartrate 2.5 mg 2.5 mg Q1H PRN IV PUSH 12/16/16 11:45 12/16/16 21:31 Magnesium Sulfate 2 gm/Sodium Chloride 104 ml @ 100 mls/hr UNSCH PRN IV 12/16/16 11:45 (Magnesium Sulfate Inj/NS Inj) 104 ml @ 50 mls/hr UNSCH PRN IV 12/16/16 11:45 12/17/16 05:49 (Lopressor) 25 mg BID PO 12/17/16 09:00 12/18/16 10:24 (Colace) 100 mg BID PO 12/17/16 09:00 12/18/16 08:23 (Theragran M Tab) 1 tab DAILY PO 12/17/16 09:00 12/18/16 08:23 (Milk Of Magnesia Liq) 30 ml DAILY PO 12/17/16 09:00 12/18/16 10:24 (Miralax) 17 gm DAILY PO 12/18/16 09:00 12/18/16 08:23 (Senokot) 8.6 mg HS PO 12/17/16 21:00 12/17/16 20:18 (Fleets Enema (Adult)) 133 ml UNSCH PRN RECTAL 12/17/16 08:45 (D50w (Vial) Inj) 50 ml UNSCH PRN IV 12/17/16 08:45 (Glucagon Inj) 1 mg UNSCH PRN OTHER 12/17/16 08:45 (NovoLOG SUPPLEMENTAL SCALE) 1 ACHS SQ 12/18/16 11:00 12/18/16 17:07 (Lipitor) 40 mg HS PO 12/17/16 21:00 12/17/16 20:18 (Flomax) 0.4 mg DAILY PO 12/18/16 14:15 12/18/16 14:28 Vital Signs / I&O Vital Signs Date Time Temp Pulse Resp B/P Pulse Ox O2 Delivery O2 Flow Rate FiO2 12/18/16 18:05 85 12/18/16 17:17 86 12/18/16 16:10 90 12/18/16 15:30 80 12/18/16 15:00 92 Room Air 12/18/16 15:00 98.1 88 16 114/74 92 12/18/16 14:05 85 12/18/16 13:59 92 21 12/18/16 13:00 86 12/18/16 12:00 85 12/18/16 11:01 98.3 96 18 126/75 92 12/18/16 11:01 92 Room Air 12/18/16 11:00 95 12/18/16 10:00 94 12/18/16 09:00 88 12/18/16 08:00 96 Room Air 12/18/16 08:00 88 12/18/16 07:42 96 Nasal Cannula 1.50 12/18/16 07:30 97.6 88 20 142/82 96 12/18/16 07:00 85 12/18/16 06:25 88 12/18/16 05:54 93 12/18/16 04:00 94 12/18/16 03:00 Nasal Cannula 1.00 60 12/18/16 03:00 98.3 93 123/73 95 12/18/16 03:00 92 12/18/16 02:36 89 12/18/16 01:00 88 12/18/16 00:59 98.2 85 115/70 95 12/18/16 00:54 Nasal Cannula 1.00 60 12/18/16 00:00 90 12/17/16 23:00 90 12/17/16 22:00 84 12/17/16 21:00 94 12/17/16 20:30 92 21 12/17/16 20:00 82 12/17/16 19:00 79 12/17/16 19:00 98.8 85 129/83 99 12/17/16 19:00 Nasal Cannula 1.00 60 12/17/16 18:21 86 I/O 12/17/16 12/17/16 12/17/16 12/18/16 12/18/16 12/18/16 07:00 15:00 23:00 07:00 15:00 23:00 Intake Total 2701 ml 290 ml 480 ml 240 ml Output Total 1030 ml 125 ml 330 ml 1175 ml Balance 1671 ml 165 ml 150 ml -935 ml Intake Oral 720 ml 240 ml 480 ml 240 ml IV Total 1731 ml 50 ml Albumin 250 ml Output Urine Total 850 ml 75 ml 300 ml 1100 ml Chest Tube Drainage Total 180 ml 50 ml 30 ml 75 ml Bladder Scan Volume Amount 211 ml 228 ml 211 ml # Bowel Movements 0 0 Physical Exam GENERAL: NAD, AAOx3 SKIN: Warm and dry. HEAD: Atraumatic. Normocephalic. EYES: Pupils equal and round. No scleral icterus. No injection or drainage. ENT: No nasal bleeding or discharge. Mucous membranes pink and moist. NECK: Trachea midline. No JVD. CARDIOVASCULAR: Regular rate and rhythm. Sternotomy with wound vac RESPIRATORY: No accessory muscle use. Clear to auscultation. Breath sounds equal bilaterally. GASTROINTESTINAL: Abdomen soft, non-tender, nondistended. Hepatic and splenic margins not palpable. MUSCULOSKELETAL: Extremities without clubbing, cyanosis, or edema. No obvious deformities. Right radial no hematoma, neurovascularly intact NEUROLOGICAL: Awake and alert. No obvious cranial nerve deficits. Motor grossly within normal limits. Five out of 5 muscle strength in the arms and legs. Normal speech. PSYCHIATRIC: Appropriate mood and affect; insight and judgment normal. Laboratory Laboratory Tests Test 12/18/16 12/18/16 05:45 11:25 White Blood Count 12.7 TH/MM3 Red Blood Count 3.64 MIL/MM3 Hemoglobin 10.1 GM/DL Hematocrit 30.7 % Mean Corpuscular Volume 84.3 FL Mean Corpuscular Hemoglobin 27.8 PG Mean Corpuscular Hemoglobin 33.0 % Concent Red Cell Distribution Width 14.5 % Platelet Count 170 TH/MM3 Mean Platelet Volume 8.2 FL Neutrophils (%) (Auto) 72.7 % Lymphocytes (%) (Auto) 12.5 % Monocytes (%) (Auto) 14.5 % Eosinophils (%) (Auto) 0.1 % Basophils (%) (Auto) 0.2 % Neutrophils # (Auto) 9.2 TH/MM3 Lymphocytes # (Auto) 1.6 TH/MM3 Monocytes # (Auto) 1.8 TH/MM3 Eosinophils # (Auto) 0.0 TH/MM3 Basophils # (Auto) 0.0 TH/MM3 CBC Comment DIFF FINAL Differential Comment Sodium Level 133 MEQ/L Potassium Level 4.4 MEQ/L Chloride Level 99 MEQ/L Carbon Dioxide Level 27.0 MEQ/L Anion Gap 7 MEQ/L Blood Urea Nitrogen 27 MG/DL Creatinine 1.25 MG/DL Estimat Glomerular Filtration 59 ML/MIN Rate Random Glucose 119 MG/DL Calcium Level 8.4 MG/DL Magnesium Level 2.3 MG/DL Total Bilirubin 0.4 MG/DL Direct Bilirubin 0.1 MG/DL Indirect Bilirubin 0.3 MG/DL Aspartate Amino Transf 17 U/L (AST/SGOT) Alanine Aminotransferase 15 U/L (ALT/SGPT) Alkaline Phosphatase 61 U/L Total Protein 6.1 GM/DL Albumin 2.8 GM/DL Urine Color YELLOW Urine Turbidity CLEAR Urine pH 5.5 Urine Specific [place] 1.024 Urine Protein TRACE mg/dL Urine Glucose (UA) NEG mg/dL Urine Ketones NEG mg/dL Urine Occult Blood NEG Urine Nitrite NEG Urine Bilirubin NEG Urine Urobilinogen LESS THAN 2.0 MG/DL Urine Leukocyte Esterase NEG Urine RBC LESS THAN 1 /hpf Urine WBC LESS THAN 1 /hpf Urine Squamous Epithelial <1 /hpf Cells Urine Hyaline Casts 8 /lpf Microscopic Urinalysis Comment CULT NOT INDICATED Assessment and Plan Problem List: (1) Chest pain (2) NSTEMI (non-ST elevated myocardial infarction) (3) S/P CABG x 4 (4) Hypertension (5) Multi-vessel coronary artery stenosis (6) Urinary retention Assessment and Plan 1) s/p CABGx4, POD#2 JERRY to LAD SVG to D1 SVG to OM1 SVG to PDA 2) EF 60-65% pre-operatively 3) Con't ASA/Statin/BB/Plavix/Amio 4) NSR on telemetry 5) PT/OT, IS to bedside Sekou Maciel DO Dec 18, 2016 18:12
[2016-12-18] MEDS: SENNOSIDES 8.6 MG TAB PO SCH (21:16)
[2016-12-18] MEDS: ATORVASTATIN 40 MG TAB PO SCH (21:17)
[2016-12-19] VITALS (31 sets, daily range): BP systolic 92–121; BP diastolic 60–79; PULSE 75–105; RESP 16–18; TEMP 97.5–98.7; O2SAT 87–98
[2016-12-19] MEDS: oxyCODONE/ACETAMINOPHEN 5 MG/325 MG TAB PO PRN ×4 (00:41→19:49)
[2016-12-19] MEDS: RESP: ALBUTEROL 2.5 MG/IPRATROPIUM 0.5 MG NEB (SCH) NEB ×5 (03:38→21:18)
[2016-12-19 05:39] LABS: AUTOMATED NEUTROPHIL # 10.4 TH/MM3 (1.8-7.7); BASOPHIL # 0.1 TH/MM3 (0-0.2); BASOPHIL % 0.5 % (0.0-2.0); EOSINOPHIL % 0.2 % (0.0-4.0); HEMATOCRIT 29.4 % (39.0-51.0); HEMO FLAGS DIFF FINAL; LYMPH % 13.3 % (9.0-44.0); LYMPHOCYTE # 1.9 TH/MM3 (1.0-4.8); MEAN CELL VOLUME 83.4 FL (80.0-100.0); MEAN CORPUSCULAR HEMOGLOBIN 28.7 PG (27.0-34.0); MEAN CORPUSCULAR HGB CONC 34.3 % (32.0-36.0); MONO % 11.3 % (0.0-8.0); NEUT % 74.7 % (16.0-70.0); PLATELET COUNT 185 TH/MM3 (150-450); RED BLOOD COUNT 3.52 MIL/MM3 (4.50-5.90); RED CELL DISTRIBUTION WIDTH 14.5 % (11.6-17.2); WHITE BLOOD COUNT 13.9 TH/MM3 (4.0-11.0)
--- NOTE | 2016-12-19 06:05 | RADRPT ---
EXAM DATE/TIME: 12/19/2016 05:07 [place] COMPARISON: CHEST SINGLE AP, December 17, 2016, 5:32. INDICATIONS : Chest tube removal. MEDICAL HISTORY : Cardiovascular disease. SURGICAL HISTORY : CABG. ENCOUNTER: Subsequent ACUITY: 3 days PAIN SCORE: 5/10 LOCATION: Bilateral chest FINDINGS: Single AP view of the chest. Median sternotomy wires again seen. Left sided chest tube is no longer p resent. Left subclavian central venous catheter and mediastinal drain also no longer seen Mild bilate ral lower lung zone opacity unchanged. No evidence of pneumothorax. CONCLUSION: Interval removal left-sided chest tube. No evidence of pneumothorax. Freedom Penny MD on December 19, 2016 at 6:03 Board Certified Radiologist. This report was verified electronically.
[2016-12-19] MEDS: PANTOPRAZOLE SOD 40 MG DELAYED RELEASE TAB PO SCH (06:08)
[2016-12-19] MEDS: INSULIN ASPART SUPPLEMENTAL SCALE SQ SCH ×4 (06:11→21:00)
[2016-12-19 06:14] LABS: BICARBONATE 26.9 MEQ/L (21.0-32.0); MAGNESIUM 2.4 MG/DL (1.5-2.5); POTASSIUM 4.8 MEQ/L (3.5-5.1)
[2016-12-19] MEDS: MAGNESIUM HYDROXIDE SUSP 30 ML CUP PO SCH (09:06)
[2016-12-19] MEDS: ASPIRIN 81 MG CHEW TAB PO SCH (09:06)
[2016-12-19] MEDS: POLYETHYLENE GLYCOL 17 GM PKG PO SCH (09:06)
[2016-12-19] MEDS: MUPIROCIN 2% OINT 1 APPLIC/GM SYR EACH NARE SCH ×2 (09:06→20:06)
[2016-12-19] MEDS: DOCUSATE SODIUM 100 MG CAP PO SCH ×2 (09:07→20:06)
[2016-12-19] MEDS: TAMSULOSIN HCL 0.4 MG CAP PO SCH (09:07)
[2016-12-19] MEDS: AMIODARONE 200 MG TAB PO SCH ×2 (09:07→20:06)
[2016-12-19] MEDS: CLOPIDOGREL 75 MG TAB PO SCH (09:07)
[2016-12-19] MEDS: MULTIVITAMINS/MINERALS THERAPEUTIC TAB PO SCH (09:07)
[2016-12-19] MEDS: SODIUM CHLORIDE 0.9% FLUSH 10 ML FLUSH IV FLUSH SCH ×2 (09:08→20:05)
--- NOTE | 2016-12-19 11:08 | PD.CAR.PN ---
CVT Progress Note Subjective/Hospital Course: 61/ male presented to the emergency room complaining of intermittent chest pain occurring over the past 3-4 weeks that increased in frequency and changed in character over the past 2 days prompting his visit to the hospital. He states that over the past 3-4 weeks, he has been experiencing central chest pain that is described as a pressure and radiates down the inner aspect of his arms bilaterally. This symptom lasts for about 5 minutes and typically has been occurring in the morning after he eats breakfast. There is associated diaphoresis but he denies any nausea or vomiting with that. He states that the pains are nonexertional and resolve spontaneously. pt underwent cardiac cath by Dr Maciel, found to have multi vessel disease, EF 60% PMH: HTN 12/12 pt denies having chest pain on room air, scheduled for surgery on Wednesday 12/13 carotid US noted, elevated bilateral velocities / no hemodynamically significant stenosis no chest pain pt scheduled for surgery on Friday 12/15 OR in am 12/16 surgery: 1. Off-pump Coronary Artery Bypass Grafting x 4 with Left Internal Mammary Artery (JERRY) to Left Anterior Descending (LAD), reverse saphenous vein graft to Diagonal 1 (D1), reverse saphenous vein graft to the Obtuse Marginal 1 (OM1), reverse saphenous vein graft to the Posterior Descending branch of the Right Coronary Artery (RPDA) 2. Left Leg Endoscopic Vein [place] extubated after surgery, 3000cc crystalloid, 400cc cell saver 200cc urine 12/17 low urine output last pm, recieved dose of lasix at 0500 weaned off cleviprex , on BB , resume amlodipine later leave chest tubes in on ASA, plavix statin , BB 12/18/16 pt had urinary retention this am , bladder scan 650cc mcdowell cath replaced, UA sent, started on flomax urology consulted gentle diuresis wean off 12/19 await urology input, keep mcdowell cath in place no BM on BB, satin , ASA , plavix ambulate, pulm toileting gentle diuresis . Objective: Vital Signs Date Time Temp Pulse Resp B/P Pulse Ox O2 Delivery O2 Flow Rate FiO2 12/19/16 10:00 95 12/19/16 09:29 84 12/19/16 08:20 82 12/19/16 08:00 98 Room Air 12/19/16 08:00 97.6 82 18 109/70 98 12/19/16 07:46 95 Nasal Cannula 2.00 12/19/16 07:25 83 12/19/16 06:18 90 12/19/16 05:00 85 12/19/16 04:00 105 12/19/16 03:41 93 Nasal Cannula 1.00 12/19/16 03:30 93 Nasal Cannula 1.00 12/19/16 03:30 98.7 86 18 110/68 93 12/19/16 03:00 87 12/19/16 02:00 85 12/19/16 02:00 18 12/19/16 01:00 96 12/19/16 00:00 92 12/18/16 23:45 100.4 105 18 107/69 94 12/18/16 23:00 94 Room Air 12/18/16 23:00 101 12/18/16 22:02 85 12/18/16 21:00 93 Room Air 12/18/16 21:00 98.1 95 18 106/64 93 12/18/16 21:00 84 12/18/16 20:00 88 12/18/16 19:39 95 Nasal Cannula 3.00 12/18/16 19:00 96 12/18/16 18:05 85 12/18/16 17:17 86 12/18/16 16:10 90 12/18/16 15:30 80 12/18/16 15:00 92 Room Air 12/18/16 15:00 98.1 88 16 114/74 92 12/18/16 14:05 85 12/18/16 13:59 92 21 12/18/16 13:00 86 12/18/16 12:00 85 Labs: Laboratory Tests Test 12/19/16 05:20 White Blood Count 13.9 TH/MM3 (4.0-11.0) Red Blood Count 3.52 MIL/MM3 (4.50-5.90) Hemoglobin 10.1 GM/DL (13.0-17.0) Hematocrit 29.4 % (39.0-51.0) Mean Corpuscular Volume 83.4 FL (80.0-100.0) Mean Corpuscular Hemoglobin 28.7 PG (27.0-34.0) Mean Corpuscular Hemoglobin 34.3 % Concent (32.0-36.0) Red Cell Distribution Width 14.5 % (11.6-17.2) Platelet Count 185 TH/MM3 (150-450) Mean Platelet Volume 7.7 FL (7.0-11.0) Neutrophils (%) (Auto) 74.7 % (16.0-70.0) Lymphocytes (%) (Auto) 13.3 % (9.0-44.0) Monocytes (%) (Auto) 11.3 % (0.0-8.0) Eosinophils (%) (Auto) 0.2 % (0.0-4.0) Basophils (%) (Auto) 0.5 % (0.0-2.0) Neutrophils # (Auto) 10.4 TH/MM3 (1.8-7.7) Lymphocytes # (Auto) 1.9 TH/MM3 (1.0-4.8) Monocytes # (Auto) 1.6 TH/MM3 (0-0.9) Eosinophils # (Auto) 0.0 TH/MM3 (0-0.4) Basophils # (Auto) 0.1 TH/MM3 (0-0.2) CBC Comment DIFF FINAL Differential Comment Sodium Level 132 MEQ/L (136-145) Potassium Level 4.8 MEQ/L (3.5-5.1) Chloride Level 98 MEQ/L (98-107) Carbon Dioxide Level 26.9 MEQ/L (21.0-32.0) Anion Gap 7 MEQ/L (5-15) Blood Urea Nitrogen 27 MG/DL (7-18) Creatinine 1.20 MG/DL (0.60-1.30) Estimat Glomerular Filtration 62 ML/MIN (>89) Rate Random Glucose 131 MG/DL (74-106) Calcium Level 8.2 MG/DL (8.5-10.1) Magnesium Level 2.4 MG/DL (1.5-2.5) Result Diagram: 12/19/1651912/19/16519 Telemetry: NSR (1) Chest pain (2) NSTEMI (non-ST elevated myocardial infarction) (3) S/P CABG x 4 Plan: ASA, statin, plavix, BB gentle diuresis OOB, ambulate pulm toileting CM to eval [facility] (4) Hypertension Plan: BB, norvasc (5) Multi-vessel coronary artery stenosis (6) Urinary retention Plan: UA neg , urology consult pending Catherine Meade Dec 19, 2016 11:08
[2016-12-19] MEDS: METOPROLOL TARTRATE 25 MG TAB PO SCH ×2 (11:26→20:06)
[2016-12-19] MEDS: amLODIPine BESYLATE 5 MG TAB PO SCH (14:40)
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
--- NOTE | 2016-12-19 15:48 | PD.CARD.PN ---
Subjective Subjective Remarks No events Mcdowell placed for urinary retention Objective Medications Current Medications Medications (Trade) Dose Ordered Sig/Laquita Route Start Time Stop Time Status Last Admin (Norvasc) 2.5 mg DAILY PO 12/11/16 09:00 12/19/16 14:40 (Pill Splitter) 1 ea UNSCH PRN OTHER 12/10/16 14:15 (Mag-Al Plus Susp Liq) 30 ml Q6H PRN PO 12/10/16 14:15 (Restoril) 15 mg HS PRN PO 12/10/16 14:15 12/18/16 00:01 (NS Flush) 2 ml BID IV FLUSH 12/11/16 21:00 12/19/16 09:08 (NS Flush) 2 ml UNSCH PRN IV FLUSH 12/11/16 15:00 (Bactroban Nasal 2% Oint) 1 applic BID EACH NARE 12/12/16 21:00 12/19/16 09:06 (Penny-Colace) 2 tab BID PRN PO 12/13/16 12:30 (Aspirin Chew) 81 mg DAILY PO 12/17/16 09:00 12/19/16 09:06 (Plavix) 75 mg DAILY PO 12/17/16 09:00 12/19/16 09:07 (Protonix) 40 mg DAILY@06 PO 12/17/16 06:00 12/19/16 06:08 (Cordarone) 400 mg Q12HR PO 12/16/16 21:00 12/19/16 09:07 (Tylenol) 650 mg Q4H PRN PO 12/16/16 11:45 (Percocet 5-325 Mg) 1 tab Q3H PRN PO 12/16/16 11:45 12/19/16 14:40 (Zofran Inj) 4 mg Q6H PRN IV PUSH 12/16/16 11:45 12/16/16 16:25 (Apresoline Inj) 10 mg Q4H PRN IV 12/16/16 11:45 12/17/16 05:03 Metoprolol Tartrate 2.5 mg 2.5 mg Q1H PRN IV PUSH 12/16/16 11:45 12/16/16 21:31 Magnesium Sulfate 2 gm/Sodium Chloride 104 ml @ 100 mls/hr UNSCH PRN IV 12/16/16 11:45 (Magnesium Sulfate Inj/NS Inj) 104 ml @ 50 mls/hr UNSCH PRN IV 12/16/16 11:45 12/17/16 05:49 (Lopressor) 25 mg BID PO 12/17/16 09:00 12/19/16 11:26 (Colace) 100 mg BID PO 12/17/16 09:00 12/19/16 09:07 (Theragran M Tab) 1 tab DAILY PO 12/17/16 09:00 12/19/16 09:07 (Milk Of Magnesia Liq) 30 ml DAILY PO 12/17/16 09:00 12/19/16 09:06 (Miralax) 17 gm DAILY PO 12/18/16 09:00 12/19/16 09:06 (Senokot) 8.6 mg HS PO 12/17/16 21:00 12/18/16 21:16 (Fleets Enema (Adult)) 133 ml UNSCH PRN RECTAL 12/17/16 08:45 (D50w (Vial) Inj) 50 ml UNSCH PRN IV 12/17/16 08:45 (Glucagon Inj) 1 mg UNSCH PRN OTHER 12/17/16 08:45 (NovoLOG SUPPLEMENTAL SCALE) 1 ACHS SQ 12/18/16 11:00 12/19/16 11:30 (Lipitor) 40 mg HS PO 12/17/16 21:00 12/18/16 21:17 (Flomax) 0.4 mg DAILY PO 12/18/16 14:15 12/19/16 09:07 Vital Signs / I&O Vital Signs Date Time Temp Pulse Resp B/P Pulse Ox O2 Delivery O2 Flow Rate FiO2 12/19/16 15:00 95 Room Air 12/19/16 15:00 97.5 85 16 121/79 95 12/19/16 14:17 87 12/19/16 14:00 85 12/19/16 13:09 81 12/19/16 12:37 84 12/19/16 12:00 98.2 84 16 103/64 92 12/19/16 11:45 83 12/19/16 11:30 92 Room Air 12/19/16 10:00 95 12/19/16 09:29 84 12/19/16 08:20 82 12/19/16 08:00 98 Room Air 12/19/16 08:00 97.6 82 18 109/70 98 12/19/16 07:46 95 Nasal Cannula 2.00 12/19/16 07:25 83 12/19/16 06:18 90 12/19/16 05:00 85 12/19/16 04:00 105 12/19/16 03:41 93 Nasal Cannula 1.00 12/19/16 03:30 93 Nasal Cannula 1.00 12/19/16 03:30 98.7 86 18 110/68 93 12/19/16 03:00 87 12/19/16 02:00 85 12/19/16 02:00 18 12/19/16 01:00 96 12/19/16 00:00 92 12/18/16 23:45 100.4 105 18 107/69 94 12/18/16 23:00 94 Room Air 12/18/16 23:00 101 12/18/16 22:02 85 12/18/16 21:00 93 Room Air 12/18/16 21:00 98.1 95 18 106/64 93 12/18/16 21:00 84 12/18/16 20:00 88 12/18/16 19:39 95 Nasal Cannula 3.00 12/18/16 19:00 96 12/18/16 18:05 85 12/18/16 17:17 86 12/18/16 16:10 90 I/O 12/18/16 12/18/16 12/18/16 12/19/16 12/19/16 12/19/16 07:00 15:00 23:00 07:00 15:00 23:00 Intake Total 480 ml 240 ml 480 ml Output Total 330 ml 1175 ml 450 ml Balance 150 ml -935 ml 30 ml Intake Oral 480 ml 240 ml 480 ml Output Urine Total 300 ml 1100 ml 450 ml Chest Tube Drainage Total 30 ml 75 ml # Bowel Movements 0 Physical Exam GENERAL: NAD, AAOx3 SKIN: Warm and dry. HEAD: Atraumatic. Normocephalic. EYES: Pupils equal and round. No scleral icterus. No injection or drainage. ENT: No nasal bleeding or discharge. Mucous membranes pink and moist. NECK: Trachea midline. No JVD. CARDIOVASCULAR: Regular rate and rhythm. Sternotomy with wound vac RESPIRATORY: No accessory muscle use. Clear to auscultation. Breath sounds equal bilaterally. GASTROINTESTINAL: Abdomen soft, non-tender, nondistended. Hepatic and splenic margins not palpable. MUSCULOSKELETAL: Extremities without clubbing, cyanosis, or edema. No obvious deformities. Right radial no hematoma, neurovascularly intact NEUROLOGICAL: Awake and alert. No obvious cranial nerve deficits. Motor grossly within normal limits. Five out of 5 muscle strength in the arms and legs. Normal speech. PSYCHIATRIC: Appropriate mood and affect; insight and judgment normal. Laboratory Laboratory Tests Test 12/19/16 05:20 White Blood Count 13.9 TH/MM3 Red Blood Count 3.52 MIL/MM3 Hemoglobin 10.1 GM/DL Hematocrit 29.4 % Mean Corpuscular Volume 83.4 FL Mean Corpuscular Hemoglobin 28.7 PG Mean Corpuscular Hemoglobin 34.3 % Concent Red Cell Distribution Width 14.5 % Platelet Count 185 TH/MM3 Mean Platelet Volume 7.7 FL Neutrophils (%) (Auto) 74.7 % Lymphocytes (%) (Auto) 13.3 % Monocytes (%) (Auto) 11.3 % Eosinophils (%) (Auto) 0.2 % Basophils (%) (Auto) 0.5 % Neutrophils # (Auto) 10.4 TH/MM3 Lymphocytes # (Auto) 1.9 TH/MM3 Monocytes # (Auto) 1.6 TH/MM3 Eosinophils # (Auto) 0.0 TH/MM3 Basophils # (Auto) 0.1 TH/MM3 CBC Comment DIFF FINAL Differential Comment Sodium Level 132 MEQ/L Potassium Level 4.8 MEQ/L Chloride Level 98 MEQ/L Carbon Dioxide Level 26.9 MEQ/L Anion Gap 7 MEQ/L Blood Urea Nitrogen 27 MG/DL Creatinine 1.20 MG/DL Estimat Glomerular Filtration 62 ML/MIN Rate Random Glucose 131 MG/DL Calcium Level 8.2 MG/DL Magnesium Level 2.4 MG/DL Assessment and Plan Problem List: (1) Chest pain (2) NSTEMI (non-ST elevated myocardial infarction) (3) S/P CABG x 4 (4) Hypertension (5) Multi-vessel coronary artery stenosis (6) Urinary retention Assessment and Plan 1) s/p CABGx4, POD#3 JERRY to LAD SVG to D1 SVG to OM1 SVG to PDA 2) EF 60-65% pre-operatively 3) Con't ASA/Statin/BB/Plavix/Amio 4) NSR on telemetry 5) PT/OT, IS to bedside 6) Urology recommending discharge with mcdowell and follow up in the office Sekou Maciel DO Dec 19, 2016 15:48
[2016-12-19] MEDS: ATORVASTATIN 40 MG TAB PO SCH (20:06)
[2016-12-19] MEDS: SENNOSIDES 8.6 MG TAB PO SCH (20:06)
[2016-12-20] VITALS (19 sets, daily range): BP systolic 100–111; BP diastolic 62–69; PULSE 73–96; RESP 16–18; TEMP 98.3–98.6; O2SAT 92–95
[2016-12-20] MEDS: RESP: ALBUTEROL 2.5 MG/IPRATROPIUM 0.5 MG NEB (SCH) NEB ×2 (04:07→08:05)
[2016-12-20] MEDS: PANTOPRAZOLE SOD 40 MG DELAYED RELEASE TAB PO SCH (05:45)
[2016-12-20] MEDS: INSULIN ASPART SUPPLEMENTAL SCALE SQ SCH ×2 (06:07→11:00)
[2016-12-20 06:47] LABS: AUTOMATED NEUTROPHIL # 7.6 TH/MM3 (1.8-7.7); BASOPHIL % 0.3 % (0.0-2.0); EOSINOPHIL # 0.1 TH/MM3 (0-0.4); EOSINOPHIL % 1.4 % (0.0-4.0); HEMATOCRIT 28.5 % (39.0-51.0); HEMO FLAGS DIFF FINAL; LYMPH % 15.1 % (9.0-44.0); LYMPHOCYTE # 1.5 TH/MM3 (1.0-4.8); MEAN CORPUSCULAR HEMOGLOBIN 27.9 PG (27.0-34.0); MEAN CORPUSCULAR HGB CONC 32.9 % (32.0-36.0); MONO % 9.3 % (0.0-8.0); NEUT % 73.9 % (16.0-70.0); PLATELET COUNT 182 TH/MM3 (150-450); RED BLOOD COUNT 3.35 MIL/MM3 (4.50-5.90); RED CELL DISTRIBUTION WIDTH 14.4 % (11.6-17.2); WHITE BLOOD COUNT 10.2 TH/MM3 (4.0-11.0)
[2016-12-20 07:03] LABS: BICARBONATE 24.7 MEQ/L (21.0-32.0); POTASSIUM 4.2 MEQ/L (3.5-5.1)
[2016-12-20] MEDS: MULTIVITAMINS/MINERALS THERAPEUTIC TAB PO SCH (08:27)
[2016-12-20] MEDS: METOPROLOL TARTRATE 25 MG TAB PO SCH (08:27)
[2016-12-20] MEDS: AMIODARONE 200 MG TAB PO SCH (08:27)
[2016-12-20] MEDS: CLOPIDOGREL 75 MG TAB PO SCH (08:27)
[2016-12-20] MEDS: MAGNESIUM HYDROXIDE SUSP 30 ML CUP PO SCH (08:28)
[2016-12-20] MEDS: SODIUM CHLORIDE 0.9% FLUSH 10 ML FLUSH IV FLUSH SCH (08:28)
[2016-12-20] MEDS: DOCUSATE SODIUM 100 MG CAP PO SCH (08:28)
[2016-12-20] MEDS: ASPIRIN 81 MG CHEW TAB PO SCH (08:28)
[2016-12-20] MEDS: TAMSULOSIN HCL 0.4 MG CAP PO SCH (08:28)
[2016-12-20] MEDS: amLODIPine BESYLATE 5 MG TAB PO SCH (08:28)
[2016-12-20] MEDS: POLYETHYLENE GLYCOL 17 GM PKG PO SCH (08:30)
[2016-12-20] MEDS: oxyCODONE/ACETAMINOPHEN 5 MG/325 MG TAB PO PRN ×2 (08:37→16:10)
[2016-12-20] MEDS: MUPIROCIN 2% OINT 1 APPLIC/GM SYR EACH NARE SCH (08:37)
--- NOTE | 2016-12-20 12:05 | PD.CARD.PN ---
Subjective Subjective Remarks No events overnight Feeling well, no chest pain, no shortness of breath Up and ambulating Objective Medications Current Medications Medications (Trade) Dose Ordered Sig/Laquita Route Start Time Stop Time Status Last Admin (Norvasc) 2.5 mg DAILY PO 12/11/16 09:00 12/20/16 08:28 (Pill Splitter) 1 ea UNSCH PRN OTHER 12/10/16 14:15 (Mag-Al Plus Susp Liq) 30 ml Q6H PRN PO 12/10/16 14:15 (Restoril) 15 mg HS PRN PO 12/10/16 14:15 12/18/16 00:01 (NS Flush) 2 ml BID IV FLUSH 12/11/16 21:00 12/20/16 08:28 (NS Flush) 2 ml UNSCH PRN IV FLUSH 12/11/16 15:00 (Bactroban Nasal 2% Oint) 1 applic BID EACH NARE 12/12/16 21:00 12/20/16 08:37 (Penny-Colace) 2 tab BID PRN PO 12/13/16 12:30 (Aspirin Chew) 81 mg DAILY PO 12/17/16 09:00 12/20/16 08:28 (Plavix) 75 mg DAILY PO 12/17/16 09:00 12/20/16 08:27 (Protonix) 40 mg DAILY@06 PO 12/17/16 06:00 12/20/16 05:45 (Cordarone) 400 mg Q12HR PO 12/16/16 21:00 12/20/16 08:27 (Tylenol) 650 mg Q4H PRN PO 12/16/16 11:45 (Percocet 5-325 Mg) 1 tab Q3H PRN PO 12/16/16 11:45 12/20/16 08:37 (Zofran Inj) 4 mg Q6H PRN IV PUSH 12/16/16 11:45 12/16/16 16:25 (Apresoline Inj) 10 mg Q4H PRN IV 12/16/16 11:45 12/17/16 05:03 Metoprolol Tartrate 2.5 mg 2.5 mg Q1H PRN IV PUSH 12/16/16 11:45 12/16/16 21:31 Magnesium Sulfate 2 gm/Sodium Chloride 104 ml @ 100 mls/hr UNSCH PRN IV 12/16/16 11:45 (Magnesium Sulfate Inj/NS Inj) 104 ml @ 50 mls/hr UNSCH PRN IV 12/16/16 11:45 12/17/16 05:49 (Lopressor) 25 mg BID PO 12/17/16 09:00 12/20/16 08:27 (Colace) 100 mg BID PO 12/17/16 09:00 12/20/16 08:28 (Theragran M Tab) 1 tab DAILY PO 12/17/16 09:00 12/20/16 08:27 (Milk Of Magnesia Liq) 30 ml DAILY PO 12/17/16 09:00 12/20/16 08:28 (Miralax) 17 gm DAILY PO 12/18/16 09:00 12/20/16 08:30 (Senokot) 8.6 mg HS PO 12/17/16 21:00 12/19/16 20:06 (Fleets Enema (Adult)) 133 ml UNSCH PRN RECTAL 12/17/16 08:45 (D50w (Vial) Inj) 50 ml UNSCH PRN IV 12/17/16 08:45 (Glucagon Inj) 1 mg UNSCH PRN OTHER 12/17/16 08:45 (NovoLOG SUPPLEMENTAL SCALE) 1 ACHS SQ 12/18/16 11:00 12/19/16 11:30 (Lipitor) 40 mg HS PO 12/17/16 21:00 12/19/16 20:06 (Flomax) 0.4 mg DAILY PO 12/18/16 14:15 12/20/16 08:28 Vital Signs / I&O Vital Signs Date Time Temp Pulse Resp B/P Pulse Ox O2 Delivery O2 Flow Rate FiO2 12/20/16 11:16 82 12/20/16 11:00 98.4 77 18 110/69 95 12/20/16 11:00 95 Room Air 12/20/16 10:18 77 12/20/16 09:00 76 12/20/16 08:07 92 12/20/16 08:00 73 12/20/16 07:11 92 12/20/16 07:00 98.3 96 18 111/66 94 12/20/16 07:00 94 Room Air 12/20/16 06:00 80 12/20/16 05:04 78 12/20/16 04:18 80 12/20/16 03:23 93 Room Air 12/20/16 03:21 98.6 77 16 100/62 93 12/20/16 03:00 84 12/20/16 02:00 74 12/20/16 01:02 83 12/20/16 00:00 77 12/19/16 23:00 79 12/19/16 23:00 93 Room Air 12/19/16 23:00 98.7 77 18 92/60 93 12/19/16 22:00 75 12/19/16 21:21 92 21 12/19/16 21:00 82 12/19/16 21:00 93 Room Air 12/19/16 20:15 80 12/19/16 19:45 83 12/19/16 19:45 98.2 84 16 101/68 93 12/19/16 18:00 75 12/19/16 17:00 75 12/19/16 16:00 77 12/19/16 15:00 95 Room Air 12/19/16 15:00 97.5 85 16 121/79 95 12/19/16 15:00 81 12/19/16 14:17 87 12/19/16 14:00 85 12/19/16 13:09 81 12/19/16 12:37 84 I/O 12/19/16 12/19/16 12/19/16 12/20/16 12/20/16 12/20/16 07:00 15:00 23:00 07:00 15:00 23:00 Intake Total 480 ml 480 ml 480 ml Output Total 450 ml 350 ml 625 ml Balance 30 ml 130 ml -145 ml Intake Oral 480 ml 480 ml 480 ml Output Urine Total 450 ml 350 ml 625 ml # Bowel Movements 1 Physical Exam GENERAL: NAD, AAOx3 SKIN: Warm and dry. HEAD: Atraumatic. Normocephalic. EYES: Pupils equal and round. No scleral icterus. No injection or drainage. ENT: No nasal bleeding or discharge. Mucous membranes pink and moist. NECK: Trachea midline. No JVD. CARDIOVASCULAR: Regular rate and rhythm. Sternotomy with wound vac RESPIRATORY: No accessory muscle use. Clear to auscultation. Breath sounds equal bilaterally. GASTROINTESTINAL: Abdomen soft, non-tender, nondistended. Hepatic and splenic margins not palpable. MUSCULOSKELETAL: Extremities without clubbing, cyanosis, or edema. No obvious deformities. NEUROLOGICAL: Awake and alert. No obvious cranial nerve deficits. Motor grossly within normal limits. Five out of 5 muscle strength in the arms and legs. Normal speech. PSYCHIATRIC: Appropriate mood and affect; insight and judgment normal. Laboratory Laboratory Tests Test 12/20/16 06:30 White Blood Count 10.2 TH/MM3 Red Blood Count 3.35 MIL/MM3 Hemoglobin 9.4 GM/DL Hematocrit 28.5 % Mean Corpuscular Volume 85.0 FL Mean Corpuscular Hemoglobin 27.9 PG Mean Corpuscular Hemoglobin 32.9 % Concent Red Cell Distribution Width 14.4 % Platelet Count 182 TH/MM3 Mean Platelet Volume 7.7 FL Neutrophils (%) (Auto) 73.9 % Lymphocytes (%) (Auto) 15.1 % Monocytes (%) (Auto) 9.3 % Eosinophils (%) (Auto) 1.4 % Basophils (%) (Auto) 0.3 % Neutrophils # (Auto) 7.6 TH/MM3 Lymphocytes # (Auto) 1.5 TH/MM3 Monocytes # (Auto) 1.0 TH/MM3 Eosinophils # (Auto) 0.1 TH/MM3 Basophils # (Auto) 0.0 TH/MM3 CBC Comment DIFF FINAL Differential Comment Sodium Level 133 MEQ/L Potassium Level 4.2 MEQ/L Chloride Level 100 MEQ/L Carbon Dioxide Level 24.7 MEQ/L Anion Gap 8 MEQ/L Blood Urea Nitrogen 25 MG/DL Creatinine 1.04 MG/DL Estimat Glomerular Filtration 73 ML/MIN Rate Random Glucose 110 MG/DL Calcium Level 8.1 MG/DL Assessment and Plan Problem List: (1) Chest pain (2) NSTEMI (non-ST elevated myocardial infarction) (3) S/P CABG x 4 (4) Hypertension (5) Multi-vessel coronary artery stenosis (6) Urinary retention Assessment and Plan 1) s/p CABGx4, POD#4 JERRY to LAD SVG to D1 SVG to OM1 SVG to PDA 2) EF 60-65% pre-operatively 3) Con't ASA/Statin/BB/Plavix/Amio 4) NSR on telemetry 5) PT/OT, IS to bedside 6) Urology recommending discharge with mcdowell and follow up in the office 7) Cardiovascularly stable for discharge once home PT set up, will see PRN call with questions 8) Follow up with myself or [facility] in [place] in 2-4 weeks, his choice Sekou Maciel DO Dec 20, 2016 12:05
[2016-12-20] MEDS ORDERED: WALKER WHEELS/F1 MIS (14:14)
[2016-12-20] MEDS ORDERED: OXYC1TAB63 PO (14:55)
[2016-12-20] MEDS ORDERED: DOCU1CAP39 PO (14:55)
[2016-12-20] MEDS ORDERED: PLAV75TA29 PO (14:55)
[2016-12-20] MEDS ORDERED: ASPI81CH25 PO (14:55)
[2016-12-20] MEDS ORDERED: AMLO5 PO (14:55)
[2016-12-20] MEDS ORDERED: TAMS5CAP PO (14:55)
[2016-12-20] MEDS ORDERED: THERM PO (14:55)
[2016-12-20] MEDS ORDERED: METO25TA3 PO (14:55)
[2016-12-20] MEDS ORDERED: AMIO200T PO (14:55)
[2016-12-20] MEDS ORDERED: ATOR40TA16 PO (14:55)
--- NOTE | 2016-12-20 14:59 | HHI.DS ---
Discharge Summary Admission Date Dec 10, 2016 at 14:08 Discharge Date: Dec 20, 2016 Admitting Diagnosis Severe Multi Vessel Coronary Artery Disease. 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 Off-pump Coronary Artery Bypass Grafting x 4 with Left Internal Mammary Artery (JERRY) to Left Anterior Descending (LAD), reverse saphenous vein graft to Diagonal 1 (D1), reverse saphenous vein graft to the Obtuse Marginal 1 (OM1) , reverse saphenous vein graft to the Posterior Descending branch of the Right Coronary Artery (RPDA) 2. Left Leg Endoscopic Vein [place] 3. Intraoperative Vein Mapping. Brief History 61/ male presented to the emergency room complaining of intermittent chest pain occurring over the past 3-4 weeks that increased in frequency and changed in character over the past 2 days prompting his visit to the hospital. He states that over the past 3-4 weeks, he has been experiencing central chest pain that is described as a pressure and radiates down the inner aspect of his arms bilaterally. This symptom lasts for about 5 minutes and typically has been occurring in the morning after he eats breakfast. There is associated diaphoresis but he denies any nausea or vomiting with that. He states that the pains are nonexertional and resolve spontaneously. pt underwent cardiac cath by Dr Maciel, found to have multi vessel disease, EF 60% CBC/BMP: 12/20/16 0630 12/20/16 0630 Significant Findings Laboratory Tests Test 12/18/16 12/19/16 12/20/16 05:45 05:20 06:30 White Blood Count 12.7 TH/MM3 13.9 TH/MM3 (4.0-11.0) (4.0-11.0) Red Blood Count 3.64 MIL/MM3 3.52 MIL/MM3 3.35 MIL/MM3 (4.50-5.90) (4.50-5.90) (4.50-5.90) Hemoglobin 10.1 GM/DL 10.1 GM/DL 9.4 GM/DL (13.0-17.0) (13.0-17.0) (13.0-17.0) Hematocrit 30.7 % 29.4 % 28.5 % (39.0-51.0) (39.0-51.0) (39.0-51.0) Neutrophils (%) (Auto) 72.7 % 74.7 % 73.9 % (16.0-70.0) (16.0-70.0) (16.0-70.0) Monocytes (%) (Auto) 14.5 % 11.3 % 9.3 % (0.0-8.0) (0.0-8.0) (0.0-8.0) Neutrophils # (Auto) 9.2 TH/MM3 10.4 TH/MM3 (1.8-7.7) (1.8-7.7) Monocytes # (Auto) 1.8 TH/MM3 1.6 TH/MM3 1.0 TH/MM3 (0-0.9) (0-0.9) (0-0.9) Sodium Level 133 MEQ/L 132 MEQ/L 133 MEQ/L (136-145) (136-145) (136-145) Blood Urea Nitrogen 27 MG/DL (7-18) 27 MG/DL (7-18) 25 MG/DL (7-18) Estimat Glomerular Filtration 59 ML/MIN (>89) 62 ML/MIN (>89) 73 ML/MIN (>89) Rate Random Glucose 119 MG/DL 131 MG/DL 110 MG/DL (74-106) (74-106) (74-106) Calcium Level 8.4 MG/DL 8.2 MG/DL 8.1 MG/DL (8.5-10.1) (8.5-10.1) (8.5-10.1) Total Protein 6.1 GM/DL (6.4-8.2) Albumin 2.8 GM/DL (3.4-5.0) Imaging Last Impressions Chest X-Ray 12/19/16 0600 Signed Impressions: Service Date/Time: December 05:07 - CONCLUSION: Interval removal left-sided chest tube. No evidence of pneumothorax. Freedom Penny MD Lower Extremity Ultrasound 12/12/16 0000 Signed Impressions: Service Date/Time: December 10:41 - CONCLUSION: Venous mapping as above. Evaristo Varner MD Carotid Artery Ultrasound 12/10/16 0000 Signed Impressions: Service Date/Time: Saturday, December 10, 2016 16:37 - CONCLUSION: Increased systolic velocities in the carotid arteries bilaterally but without sonographic evidence for hemodynamically significant stenosis. Mild to moderate visible plaque formation. Florencio Suresh MD PE at Discharge GENERAL: SKIN: Warm and dry. prevena dressing to chest , incision intact to leg HEAD: Normocephalic. EYES: No scleral icterus. No injection or drainage. NECK: Supple, trachea midline. No JVD or lymphadenopathy. CARDIOVASCULAR: Regular rate and rhythm without murmurs, gallops, or rubs. RESPIRATORY: Breath sounds equal bilaterally. No accessory muscle use. GASTROINTESTINAL: Abdomen soft, non-tender, nondistended. MUSCULOSKELETAL: No cyanosis, or edema. BACK: Nontender without obvious deformity. No CVA tenderness. Hospital Course 12/12 pt denies having chest pain on room air, scheduled for surgery on Wednesday 12/13 carotid US noted, elevated bilateral velocities / no hemodynamically significant stenosis no chest pain pt scheduled for surgery on Friday 12/15 OR in am 12/16 surgery: 1. Off-pump Coronary Artery Bypass Grafting x 4 with Left Internal Mammary Artery (JERRY) to Left Anterior Descending (LAD), reverse saphenous vein graft to Diagonal 1 (D1), reverse saphenous vein graft to the Obtuse Marginal 1 (OM1), reverse saphenous vein graft to the Posterior Descending branch of the Right Coronary Artery (RPDA) 2. Left Leg Endoscopic Vein [place] extubated after surgery, 3000cc crystalloid, 400cc cell saver 200cc urine 12/17 low urine output last pm, recieved dose of lasix at 0500 weaned off cleviprex , on BB , resume amlodipine later leave chest tubes in on ASA, plavix statin , BB 12/18/16 pt had urinary retention this am , bladder scan 650cc mcdowell cath replaced, UA sent, started on flomax urology consulted gentle diuresis wean off 12/19 await urology input, keep mcdowell cath in place no BM on BB, satin , ASA , plavix ambulate, pulm toileting gentle diuresis .7/14 pt doing well, will keep indwelling mcdowell cath in place dc with leg bag also stable for dc home today Pt Condition on Discharge: Good Discharge Disposition: Disch w/ Home Health Serv Discharge Instructions DIET: Follow Instructions for: Heart Healthy Diet Activities you can perform: Shower Only-No Bath Activities to avoid: Strenuous Activity, Driving Additional Activity Instructio: no lifting > 8 lbs or gallon of milk Follow up Referrals: Appointment for Follow Up Cardiology @ [facility] with Sekou Maciel DO PCP Follow-up with [facility] with Chayo Francis MD New Medications: Walker with Front Wheels (Walker with Front Wheels) 1 Mis Mis 1 EA .ROUTE DIRECTED #1 Ref 0 EA Amiodarone (Amiodarone) 200 Mg Tab 200 MG PO Q12HR heart rhythm #28 Ref 0 TAB Amlodipine (Norvasc) 5 Mg Tab 2.5 MG PO DAILY Blood Pressure Management #30 Ref 2 TAB Aspirin (Aspirin Low Strength) 81 Mg Chew 81 MG PO DAILY Blood Clot Prevention #100 Ref 2 EA Atorvastatin (Atorvastatin) 40 Mg Tab 40 MG PO HS Cholesterol Management #30 Ref 2 TAB Clopidogrel (Plavix) 75 Mg Tab 75 MG PO DAILY Blood Clot Prevention #30 Ref 2 TAB Docusate Sodium (Dok) 100 Mg Cap 100 MG PO BID Constipation #60 Ref 0 CAP Metoprolol Tartrate (Metoprolol Tartrate) 25 Mg Tab 25 MG PO BID Blood Pressure Management #60 Ref 2 TAB Multiple Vitamins W/ Minerals (Thera M Plus) 1 Tab 1 TAB PO DAILY multi vitamin #30 Ref 2 TAB Oxycodone-Acetaminophen (Oxycodone-Acetaminophen) 5-325 mg Tab 1 TAB PO Q4HR PRN PAIN SCALE 1 TO 5 #40 Ref 0 TAB Tamsulosin (Flomax) 0.4 Mg Cap 0.4 MG PO DAILY urinary retention #30 Ref 2 CAP Discontinued Medications: Lisinopril (Lisinopril) 10 Mg Tab 10 MG PO DAILY #30 Ref 0 TAB Catherine Miranda Dec 20, 2016 14:59
== END 2016-12-20 16:54 | disposition home health service (06) | DRG 234 ==
LOC: NEDDLT 16:43 → HCIN 19:15 → OBSVTOIN 12-10 14:08 → HCIN 12-12 09:15 → HCIS 12-16 08:02 → HCVR 12-16 11:52 → HCIN 12-17 10:45
PROVIDERS: ADMIT Thoracic Surgery (Cardiothoracic Vascular Surgery); ATTEND Thoracic Surgery (Cardiothoracic Vascular Surgery)
PROC: 4A023N7 Measurement of Cardiac Sampling and Pressure, Left Heart, Percutaneous Approach (ICD-10-PCS; 2016-12-11)
PROC: B2111ZZ Fluoroscopy of Multiple Coronary Arteries using Low Osmolar Contrast (ICD-10-PCS; 2016-12-11)
PROC: 02100Z9 Bypass Coronary Artery, One Artery from Left Internal Mammary, Open Approach (ICD-10-PCS; 2016-12-16)
PROC: 06BQ4ZZ Excision of Left Saphenous Vein, Percutaneous Endoscopic Approach (ICD-10-PCS; 2016-12-16)
PROC: 021209W Bypass Coronary Artery, Three Arteries from Aorta with Autologous Venous Tissue, Open Approach (ICD-10-PCS; principal; 2016-12-16 06:52)
PROC: 0T9B70Z Drainage of Bladder with Drainage Device, Via Natural or Artificial Opening (ICD-10-PCS; 2016-12-18)
DX: I21.4 Non-ST elevation (NSTEMI) myocardial infarction (principal); Q24.5 Malformation of coronary vessels; I25.10 Atherosclerotic heart disease of native coronary artery without angina pectoris; I10 Essential (primary) hypertension; E78.5 Hyperlipidemia, unspecified; R33.9 Retention of urine, unspecified; K59.00 Constipation, unspecified; F12.90 Cannabis use, unspecified, uncomplicated; Z22.322 Carrier or suspected carrier of Methicillin resistant Staphylococcus aureus; Z80.0 Family history of malignant neoplasm of digestive organs; Z82.49 Family history of ischemic heart disease and other diseases of the circulatory system; Z87.891 Personal history of nicotine dependence
CPT/HCPCS: 36430; 71010; 71020; 71275; 74174; 76937; 80048; 80061; 80076; 81001; 82550; 82552; 82948; 83036; 83690; 83735; 83880; 84484; 85014; 85025; 85027; 85379; 85610; 85730; 86850; 86900; 86901; 86920; 87641; 93005; 93306; 93454; 93880; 93970; 93998; 94002; 94010; 94150; 94640; 94664; 94667; 94668; C1768; C1769; C1893; C9248; J0131; J0360; J0690; J1644; J1815; J1885; J1940; J2250; J2270; J2370; J2405; J2440; J2720; J3010; J3370; J3475; J3480; J7050; J7120; P9016; P9045; Q9967

== ENCOUNTER 2016-12-23 19:29 | Emergency (ER) | payer BC ==
[~2016-12-23] VITALS: Ht 167.6 cm; Wt 81.0 kg
[~2016-12-23 19:29] MED LIST changes: +AMIO200T PO; +AMLO5 PO; +ASPI81CH25 PO; +ATOR40TA16 PO; +DOCU1CAP39 PO; -IOHEXOL 350 MG/ML 10 ML VIAL (for RAD DIAG) IV ONE; +METO25TA3 PO; +OXYC1TAB63 PO; +PLAV75TA29 PO; +TAMS5CAP PO; +THERM PO; +WALKER WHEELS/F1 MIS
[2016-12-23 19:32] VITALS: BP 155/81; PULSE 93; RESP 18; TEMP 98.4; O2SAT 99
--- NOTE | 2016-12-23 22:29 | PD ---
HPI Chief Complaint: Wound/Suture/Staple Re-Check Time Seen by Provider: 22:06 Travel History International Travel<30 days: No Contact w/Intl Traveler<30days: No Traveled to known affect area: No History of Present Illness HPI PATIENT HAD QUADRUPLE BYPASS BY DR SRIVASTAVA ON DECEMBER 16. PT IS STABLE AND HAS NO COMPLAINT BUT APPARENTLY WAS CALLED BY CASE MANAGEMENT AND TOLD TO "STOP AT NEAREST ER TO HAVE DRESSING REMOVED" IT IS UNCLEAR NAME OF PERSON THAT CALLED. PT LIVES IN [facility], AND STOPPED BY [facility] WHO REFUSED TO REMOVE THE DRESSING OR EQUIPMENT ON CHEST.... PFSH Past Medical History Hx Anticoagulant Therapy: Yes (Plavix) Cancer: No Cardiovascular Problems: Yes (Bybass x4, HTN, ) Chest Pain: Yes Endocrine: No Genitourinary: No Musculoskeletal: No Neurologic: No Psychiatric: No Reproductive: No Respiratory: No Past Surgical History Body Medical Devices: pins in R ankle Social History Tobacco Use: Yes Substance Use: Yes (quit 2001) Allergies-Medications (Allergen,Severity, Reaction): Coded Allergies: No Known Allergies (Unverified , 12/09/16) Reported Meds & Prescriptions Reported Meds & Active Scripts Active Flomax (Tamsulosin HCl) 0.4 Mg Cap 0.4 Mg PO DAILY Oxycodone-Acetaminophen 5-325 mg Tab 1 Tab PO Q4HR PRN Thera M Plus (Multivitamins/Minerals Therapeutic) 1 Tab 1 Tab PO DAILY Metoprolol Tartrate 25 Mg Tab 25 Mg PO BID Dok (Docusate Sodium) 100 Mg Cap 100 Mg PO BID Plavix (Clopidogrel Bisulfate) 75 Mg Tab 75 Mg PO DAILY Atorvastatin (Atorvastatin Calcium) 40 Mg Tab 40 Mg PO HS Aspirin Low Strength (Aspirin) 81 Mg Chew 81 Mg PO DAILY Norvasc (Amlodipine Besylate) 5 Mg Tab 2.5 Mg PO DAILY Amiodarone (Amiodarone HCl) 200 Mg Tab 200 Mg PO Q12HR Walker with Front Wheels (Device) 1 Mis Mis 1 Ea .ROUTE DIRECTED Review of Systems Except as stated in HPI: all other systems reviewed are Neg Physical Exam Narrative GENERAL: SKIN: Warm and dry. HEAD: Atraumatic. Normocephalic. EYES: Pupils equal and round. No scleral icterus. No injection or drainage. ENT: No nasal bleeding or discharge. Mucous membranes pink and moist. NECK: Trachea midline. No JVD. CARDIOVASCULAR: Regular rate and rhythm. HAS TAGADERM STYLE DRESSING MIDSTERNAL WITH EPIGASTRIUM REGION MIDSTERNAL CHEST TUBE. WOUND HEALING WELL, NO MAJOR AMOUNT OF D/C INTO CHEST TUBE. RESPIRATORY: No accessory muscle use. Clear to auscultation. Breath sounds equal bilaterally. GASTROINTESTINAL: Abdomen soft, non-tender, nondistended. Hepatic and splenic margins not palpable. MUSCULOSKELETAL: Extremities without clubbing, cyanosis, or edema. No obvious deformities. NEUROLOGICAL: Awake and alert. No obvious cranial nerve deficits. Motor grossly within normal limits. Five out of 5 muscle strength in the arms and legs. Normal speech. PSYCHIATRIC: Appropriate mood and affect; insight and judgment normal. Data Data Last Documented VS Orders Change Dressing (12/23/16 23:16) [facility] Medical Decision Making Medical Screen Exam Complete: Yes Emergency Medical Condition: Yes Medical Record Reviewed: Yes Differential Diagnosis N/A Narrative Course CALLED DR GIRALDO, HOWEVER NOT DRAWING HAND INSTEAD SPOKE WITH DR JIMENEZ WHO STATED HE HAS NEVER HEARD OF SUCH AN EVENT EVER OCCURRING, THEY USUALLY HAVE HOME HEALTH OR THEY REMOVE IT AT THE OFFICE. Physician Communication Physician Communication D/W DR OREILLY WHO WAS BEWILDERED I WAS, HE RECC CALLING [facility]IG[facility] FOR THORACIC SURGERY FOR CLARIFICATIOIN AND STATED THAT HE WILL BE IN CLINIC ALL WEEK AND IS MORE THAN HAPPY TO DO POST OP FOLLOWUP...DR OREILLY CALLED BACK TO ADVISE IF UNABLE TO SETUP ANYTHING WITH [facility], OR HIS OFFICE TO CONTACT [facility] CHARGE NURSE TO REMOVE DRESSING ( THEY ARE VERY FAMILIAR WITH IT) . [facility] REMOVED IT AND REDRESSED IT TO FOLLOW UP WITH DR SRIVASTAVA Diagnosis Primary Impression: WOUND CHECK Disposition: DISCHARGE HOME Condition: Stable Lex Baig MD Dec 23, 2016 22:29 Diagnosis Primary Impression: WOUND CHECK Disposition: DISCHARGE HOME Condition: Stable Lex Baig MD Dec 23, 2016 22:29 Lex Baig MD Dec 23, 2016 22:29
== END 2016-12-24 00:24 | disposition home or self-care (01) ==
LOC: NEPD 19:29
DX: Z48.812 Encounter for surgical aftercare following surgery on the circulatory system (principal); Z98.890 Other specified postprocedural states; Z95.1 Presence of aortocoronary bypass graft; Z72.0 Tobacco use; Z79.01 Long term (current) use of anticoagulants
CPT/HCPCS: 99281